=== PATIENT | female | born 1950 | race Caucasian/White ===

== ENCOUNTER 2017-12-26 14:05 | Outpatient (RCR) | payer MEDICARE, OTHER ==
[~2017-12-26 14:05] MED LIST: ABILIFY5 MG PO; ADVAIR 250-501 EACH INH; ADVAIR 500-501 EACH; ALBUTEROL0.63 MG/3 INH; ALPRAZOLAM0.5 MG PO; ALPRAZOLAM1 MG PO; BENICAR40 MG PO; BUPROPION HCL100 MG PO; CARTIA XT180 MG PO; CLINDAMYCIN HC300 MG PO; CRESTOR10 MG PO; DILTIAZEM ER180 MG PO; DONEPEZIL HCL5 MG PO; HYDRALAZINE HCL25 MG PO; HYDROCODON-ACE1 EAC9 PO; HYDROCODONE PO; HYDROMET SYRUP480 ML; HYZAAR 50-12.51 EACH PO; LORTAB 10-5001 EACH PO; LOSARTAN POTASS50 MG PO; LOSARTAN-HCTZ1 EACH PO; LYRICA PO; LYRICA50 MG PO; MEDROL4 MG PO; OMEPRAZOLE20 M1 PO; PROAIR HFA INH8.5 GM INH; RANITIDINE HCL150 MG PO; SERTRALINE HCL50 MG PO; SPIRIVA HANDIH18 MCG; SPIRIVA18 MCG INH; SYMBICORT 16010.2 GM INH; TRAZODONE HCL100 MG PO; TYLENOL # 31 EA PO; VITAMIN B12 IM; Z.0.BENICAR20 MG PO; Z.0.CARDIZEM30 MG PO; Z.0.CYMBALTA20 MG; Z.0.CYMBALTA60 MG PO; Z.0.NEURONTIN300 MG PO; Z.0.NORCO 5-325 TA1 PO; Z.0.PLAVIX75 MG PO; Z.0.PREDNISONE10 MG; Z.0.XANAX0.5 MG PO; Z.0.XOPENEX1.25 MG/3; [UNRECOGNIZED DRUG - OTHER] PO; advair
== END 2018-01-06 ==
LOC: RESP 14:05
PROVIDERS: ATTEND Internal Medicine Critical Care Medicine
DX: J44.9 Chronic obstructive pulmonary disease, unspecified (principal)
CPT/HCPCS: G0238 ×3; G0424 ×3

== ENCOUNTER 2018-01-09 14:07 | Outpatient (RCR) | payer MEDICARE, OTHER ==
[2018-01-31] MEDS ORDERED: PREDNISONE10 MG PO (17:15)
[2018-01-31] MEDS ORDERED: TEMAZEPAM15 MG PO (17:15)
[2018-01-31] MEDS ORDERED: METOPROLOL TART25 MG PO (17:15)
[2018-01-31] MEDS ORDERED: LEXAPRO10 MG PO (17:15)
[2018-01-31] MEDS ORDERED: CLONIDINE HCL0.1 MG PO (17:15)
[2018-01-31] MEDS ORDERED: LUNESTA1 MG PO (17:15)
== END 2018-02-05 ==
LOC: RESP 14:07
PROVIDERS: ATTEND Internal Medicine Critical Care Medicine
DX: J44.9 Chronic obstructive pulmonary disease, unspecified (principal)
CPT/HCPCS: G0238 ×2; G0424 ×2

== ENCOUNTER 2018-01-31 15:34 | Inpatient (IN) | payer MEDICARE, OTHER ==
[~2018-01-31] VITALS: Ht 149.9 cm; Wt 92.2 kg
--- OUTSIDE RECORDS SUMMARY | 2018-01-31 15:37 | XMS REPORT | Continuity of Care Document ---
Author Author [facility] Organization [facility] Address [address] [place] [address] Phone Unavailable Care Team Providers Care Balloon Dipper Name Role Phone VLAD BLUE MD PCP Insurance Providers Guarantor Anya Reyna Address [address] [place] [address] Email [email or web address] Payer Medicare A & B Policy Number [id number] Subscriber's Name Benson Reynabetsy Cassandra Relationship 18 Self / Same As Patient Group Name RETIRED Effective Date 16 Payer [employer] Medicare Supplement Plan Policy Number [id number] Subscriber's Name Benson Reynabetsy Cassandra Relationship 18 Self / Same As Patient Group Number PLAN [id number] Group Name RETIRED Effective Date 16 Advance Directives Directive Response Recorded Date/Time Does the patient have an advance directive? Yes 06/15/16 10:20am If yes, is advance directive on file with [facility]? No 01/24/13 6:01pm If not on file with [facility] will patient provide a copy? Yes 06/15/16 10:20am Do you have a Directive to Physician? Yes 12/26/17 2:04pm Do you have a Medical Power of Respiratory Therapy Technician? Yes 12/26/17 2:04pm Do you have an out of hospital Do Not Resuscitate Order? No 12/26/17 2:04pm Do you have any special needs we should be aware of? No 12/26/17 2:04pm Do you have a support person here with you today? No 12/26/17 2:04pm Did patient receive Notice of Privacy Practices? No 12/26/17 2:04pm Did patient receive patient rights and responsibilities? No 12/26/17 2:04pm Problems No problem information available. Medications Current Home Medications Medication Dose Units Route Directions Days Qty Instructions Start Date Acetaminophen/Codeine Phosphate (Tylenol # 3*) 1 Ea Tab 1 Tab Oral Twice A Day Albuterol Sulfate (Proair Hfa Inhaler*) 8.5 Gm Inh 2 Spr Inhalation Four Times Daily as needed for Shortness Of Breath Alprazolam 1 Mg Tablet 1 Mg Oral 2-3 Times Daily Bupropion Hcl 100 Mg Tablet 150 Mg Oral Daily 30 Tab Diltiazem Hcl (Diltiazem Er) 180 Mg Cap.er.deg 180 Mg Oral Bedtime Donepezil Hcl 5 Mg Tablet 5 Mg Oral Daily Fluticasone/Salmeterol (Advair 250-50 Diskus) 1 Each Disk.w.dev 1 Dose Inhalation Twice A Day Losartan Potassium 50 Mg Tablet 50 Mg Oral Daily Omeprazole 20 Mg Tablet.dr 20 Mg Oral Daily Ranitidine Hcl 150 Mg Tablet 150 Mg Oral Bedtime Sertraline Hcl 50 Mg Tablet 50 Mg Oral Daily Trazodone Hcl 100 Mg Tablet 100 Mg Oral Bedtime Past Home Medications Medication Directions Ordered Status Advair , Twice A Day Discontinued Albuterol Sulfate 0.63 Mg/3 Ml Vial.neb, 3 Ml Inhalation Twice A Day Discontinued Alprazolam 0.5 Mg Tablet, 0.5 Mg Oral 2-3 Times Daily Discontinued Alprazolam (Xanax) 0.5 Mg Tablet, 0.5 Mg Oral Four Times Daily as needed Discontinued Aripiprazole (Abilify) 5 Mg Tablet, 5 Mg Oral Daily Discontinued Budesonide/Formoterol Fumarate (Symbicort 160-4.5 Mcg Inhaler) 10.2 Gm Hfa.aer.ad, Inhalation Twice A Day Discontinued Clindamycin Hcl 300 Mg Capsule, 300 Mg Oral Twice A Day Discontinued Clopidogrel Bisulfate (Plavix) 75 Mg Tablet, 75 Mg Oral Daily Discontinued Diltiazem Hcl (Cartia Xt) 180 Mg Cap.er.24h, 180 Mg Oral Bedtime Discontinued Diltiazem Hcl (Cardizem) 30 Mg Tablet, 30 Mg Oral Daily Discontinued Duloxetine Hcl (Cymbalta) 60 Mg Capsule.dr, 60 Mg Oral Twice A Day Discontinued Duloxetine Hcl (Cymbalta) 20 Mg Capsule.dr, Discontinued Fluticasone/Salmeterol (Advair 500-50 Diskus) 1 Each Disk.w.dev, Twice A Day Discontinued Gabapentin (Neurontin) 300 Mg Capsule, 100 Mg Oral Three Times A Day Discontinued Guaifenesin (Mucinex) 600 Mg Tablet.sa, 600 Mg Oral Twice A Day Discontinued Hydralazine Hcl 25 Mg Tab, 25 Mg Oral Twice A Day Discontinued Hydrocodone Bit/Acetaminophen (Hydrocodon-Acetaminophn 10-325) 1 Each Tablet, 10-325 Mg Oral Every 4-6 Hours as needed Discontinued Hydrocodone Bit/Acetaminophen (Kegley 5-325 Tablet) 1 Each Tablet, 1 Tab Oral Every 4-6 Hours as needed Discontinued Hydrocodone Bit/Acetaminophen (Lortab 10-500 Tablet) 1 Each Tablet, 1 - 2 Oral Every 6 Hours Discontinued Hydrocodone Bit/Acetaminophen (Lortab 10-500 Tablet) 1 Each Tablet, Oral Every 6 Hours Discontinued Hydrocodone Bit/Homatropine (Hydromet Syrup) 480 Ml Syrup, Discontinued Levalbuterol Hcl (Xopenex) 1.25 Mg/3 Ml Vial.neb, Discontinued Losartan/Hydrochlorothiazide (Losartan-Hctz 50-12.5 Mg Tab) 1 Each Tablet, 1 Tab Oral Daily Discontinued Losartan/Hydrochlorothiazide (Hyzaar 50-12.5 Tablet) 1 Each Tablet, 1 Tab Oral Daily Discontinued Lyrica , 75 Mg Oral Three Times A Day Discontinued Methylprednisolone (Medrol) 4 Mg Tablet, 4 Mg Oral Daily Discontinued Olmesartan Medoxomil (Benicar) 40 Mg Tablet, 40 Mg Oral Daily Discontinued Olmesartan Medoxomil (Benicar) 20 Mg Tablet, 40 Mg Oral Daily Discontinued Prednisone 10 Mg Tablet, Discontinued Pregabalin (Lyrica) 50 Mg Cap, 50 Mg Oral Twice A Day Discontinued Rosuvastatin Calcium (Crestor) 10 Mg Tab, 20 Mg Oral Daily Discontinued Rosuvastatin Calcium (Crestor) 10 Mg Tab, 10 Mg Oral Daily Discontinued Tiotropium (Spiriva Handihaler) 18 Mcg Inhpwd, Discontinued Tiotropium [place] (Spiriva) 18 Mcg Cap.w.dev, 18 Mcg Inhalation Daily Discontinued Vitamin B12 , Intramusc Weekly Discontinued Vitamin B12 , 2 Ml Intramusc Use As Directed Discontinued Social History Social History Problem Response Recorded Date/Time Onset Date Status Hx Psychiatric Problems Yes 04/16/2013 5:44pm Not Applicable Not Applicable Hx Eating Disorder No 01/24/2013 6:01pm Not Applicable Not Applicable Hx Substance Use Disorder No 01/24/2013 6:01pm Not Applicable Not Applicable Hx Depression Yes 04/16/2013 5:44pm Not Applicable Not Applicable Hx Alcohol Use No 01/24/2013 6:01pm Not Applicable Not Applicable Hx Substance Use Treatment No 01/24/2013 6:01pm Not Applicable Not Applicable Hx Physical Abuse No 01/24/2013 6:01pm Not Applicable Not Applicable Hospital Discharge Instructions No hospital discharge instruction information available. Plan of Care Prescriptions See Medication Section Functional Status No functional status information available. Allergies, Adverse Reactions, Alerts Allergen Type Severity Reaction Status Last Updated ipratropium bromide Allergy Unknown Active 11/21/16 Penicillin Allergy Mild Active 09/16/08 Iodine Allergy Mild Active 09/16/08 Gabapentin Allergy Severe Active 04/17/13 Immunizations No immunization information available. Vital Signs No vital sign information available. Results No relevant diagnostic test, laboratory data and/or discharge summary information available. Procedures Procedure Status Date Provider(s) X-ray of chest, two views Active 04/12/17 VLAD BLUE MD Computed tomography of chest without contrast Active 05/19/17 PERLA PARKER MD Encounters Encounter Location Arrival/Admit Date Discharge/Depart Date Attending Provider Discharged [facility] 12/26/17 2:05pm 01/06/18 11:59pm PERLA PARKER MD Registered Clinic [facility] 05/19/17 5:52pm PERLA PARKER MD Registered Clinic [facility] 04/12/17 3:02pm VLAD BLUE MD
--- NOTE | 2018-01-31 16:39 | Diagnostic Imaging Report ---
PROCEDURE: Frontal and lateral views of the chest. COMPARISON: Chest 2 views 04/12/2017. INDICATIONS: COPD. MID UPPER BACK PAIN FINDINGS: Lines/tubes: None. Lungs: No focal consolidation. No parenchymal mass. Left lung base atelectasis. Pleura: There is no pleural effusion or pneumothorax. Heart and mediastinum: The heart and the mediastinum are normal. Atherosclerotic calcifications. Bones: No acute bony abnormality. Anterior cervical spine fusion hardware. Degenerative changes of the thoracic spine. IMPRESSION: No acute radiographic abnormality. Dictated by: Agusto Mayberry M.D. on 01/31/2018 at 16:40 Electronically approved by: Agusto Mayberry M.D. on 01/31/2018 at 16:40
[2018-01-31 17:03] LABS: BASOPHILS % 0.3 % (0.0-1.0); EOSINOPHILS # (AUTO) 0.2 (0.0-0.4); EOSINOPHILS % 1.4 % (0.0-6.0); HEMATOCRIT 34.4 % (34.2-44.1); HEMOGLOBIN 11.1 g/dL (12.0-16.0); LYMPHOCYTES # (AUTO) 3.5 (1.0-3.2); LYMPHOCYTES % 24.6 % (18.0-39.1); MEAN CORPUSCULAR HEMOGLOBIN 27.3 pg (28-32); MEAN CORPUSCULAR HGB CONC 32.3 g/dL (31-35); MEAN CORPUSCULAR VOLUME 84.5 fL (81-99); MONOCYTES % 6.9 % (4.4-11.3); NEUTROPHILS # (AUTO) 9.3 (2.1-6.9); NEUTROPHILS % 66.3 % (38.7-80.0); PLATELET COUNT 287 x10e3/uL (140-360); RED BLOOD COUNT 4.07 x10e6/uL (3.6-5.1); RED CELL DISTRIBUTION WIDTH 13.2 % (11.7-14.4)
[2018-01-31 17:12] LABS: INR 1.02; PROTHROMBIN TIME 12.6 seconds (11.9-14.5)
[2018-01-31 17:13] LABS: PARTIAL THROMBOPLASTIN TIME 34.8 seconds (23.8-35.5)
[2018-01-31] MEDS ORDERED: CLONIDINE HCL0.1 MG PO (17:15)
[2018-01-31] MEDS ORDERED: TEMAZEPAM15 MG PO (17:15)
[2018-01-31] MEDS ORDERED: METOPROLOL TART25 MG PO (17:15)
[2018-01-31] MEDS ORDERED: PREDNISONE10 MG PO (17:15)
[2018-01-31] MEDS ORDERED: LUNESTA1 MG PO (17:15)
[2018-01-31] MEDS ORDERED: LEXAPRO10 MG PO (17:15)
[2018-01-31 17:22] LABS: ALANINE AMINOTRANSFERASE 18 IU/L (0-55); ALBUMIN 3.4 g/dL (3.5-5.0); ALBUMIN/GLOBULIN RATIO 0.9 (0.8-2.0); ALKALINE PHOSPHATASE 102 IU/L (40-150); BLOOD UREA NITROGEN 18 mg/dL (7-26); BUN/CREATININE RATIO 18 (6-25); CALCIUM 9.3 mg/dL (8.4-10.2); CARBON DIOXIDE 31 mmol/L (22-29); CHLORIDE 100 mmol/L (98-107); CREATINE KINASE 94 IU/L (29-168); CREATININE, SERUM 0.98 mg/dL (0.57-1.11); EST GLOMERULAR FILTRATION RATE 57 ML/MIN (60-); GLUCOSE 122 mg/dL (74-118); SODIUM 142 mmol/L (136-145)
[2018-01-31] MEDS ORDERED: MORPHINE SULFATE 2 MG/ML SYR IV STA (17:26)
--- NOTE | 2018-01-31 17:29 | Diagnostic Imaging Report ---
Examination: CT Cervical Spine without Contrast History: Weakness, upper back pain for 2 days, rule out fracture injury. Comparison studies: CT 01/21/2012. Technique: Axial images were obtained through the cervical region. Coronal and sagittal images reconstructed from the axial data. Intravenous contrast: None Findings: Atlantoaxial articulation: Intact Alignment: Progressive minimal 2 mm degenerative anterolisthesis of C3 on C4. Stable minimal degenerative changes of C4-C5. Cervicomedullary junction: No abnormalities. Patent foramen magnum. Soft tissues: No gross abnormalities. Vertebrae: No fractures, neoplasm or infection. Stable incomplete fusion of the anterior arch of C2. Postsurgical changes: Post surgical changes of C5-C7 ACDF and interbody fusion are stable without evidence of hardware complication. Degenerative changes: C2-C3: Normal disc. Moderate left facet arthrosis and uncovertebral arthrosis result in moderate left foraminal stenosis. Patent right foramen. No spinal canal stenosis . C3-4: Moderately degenerated disc and 2 mm degenerative grade 1 anterolisthesis. Moderate right facet arthrosis and uncovertebral arthrosis contribute to severe right foraminal stenosis and moderate left foraminal stenosis. No spinal canal stenosis. C4-5: Severely degenerated disc with 2 mm degenerative retrolisthesis of C4 on C5. Bilateral uncovertebral arthrosis and mild right facet arthrosis contribute to moderate to severe right foraminal stenosis and moderate left foraminal stenosis. No spinal canal stenosis. C5-6: Postsurgical changes of ACDF with solid interbody fusion. Bilateral uncovertebral arthrosis and facet arthrosis contribute to moderate bilateral foraminal stenosis. No spinal canal stenosis. C6-7: Posteriorly changes of ACDF with solid interbody fusion. Uncovertebral post and facet arthrosis contributes to severe bilateral foraminal stenosis. No significant spinal canal stenosis. C7-T1: Severely degenerated disc. No spinal canal stenosis. Mild right foraminal stenosis due to facet arthrosis. Patent left foramen. IMPRESSION: 1. No acute fracture or sensation within the cervical spine. 2. Stable post surgical changes of C5-C7 ACDF without hardware complication. 3. Minimal progression of 2 mm grade 1 degenerative anterolisthesis of C3 on C4. 4. Stable 2 mm degenerative retrolisthesis at C4-C5. 5. Moderate to severe degenerative foraminal stenosis at C3-C4, C4-C5 and C6-C7. 6. No significant spinal canal stenosis. Preliminary report was provided by neuroradiology fellow, Dr.Thach Asia MD on 01/31/2018 5:28 PM. The images and preliminary report were reviewed and signed by Dr. Monalisa Alvarez, neuroradiology faculty, on 01/31/2018 at 1915 hours. Signed by: Dr. Monalisa Alvarez M.D. on 01/31/2018 7:20 PM
--- NOTE | 2018-01-31 17:37 | Diagnostic Imaging Report ---
History: Fall, weakness, upper to mid back pain for 2 days. Comparison studies: Concurrent cervical spine CT. Technique: Axial were obtained without IV contrast through the thoracic region. Coronal and sagittal images reconstructed from the axial data. Intravenous contrast: None Findings: Alignment: Normal kyphosis. No scoliosis. Soft tissues: No abnormalities.. Paraspinal muscles: Unremarkable Spinal cord: Can not be evaluated. Vertebrae: No fractures, infection or neoplasm. Hemangiomata of the T9 and T11 vertebrae. Degenerative changes: Severe disc degeneration with disc vacuum phenomenon from T6 to T12. Mild chronic degenerative vertebral body height loss from T6 to T11. Schmorl's node and degenerative endplate sclerosis at C6-C7. Endplate sclerosis at T10-T11. Schmorl's node at T 11-12. No spinal canal or foraminal stenosis. Incidental: Mild coronary arterial calcification. Calcified right hilar lymph node. Splenic calcified granulomas. Postsurgical changes with surgical sutures of the GE junction. IMPRESSION: 1. No acute fracture or subluxation within the thoracic spine. 2. Severe disc degeneration and endplate degenerative changes from T6 to T12. Preliminary report was provided by neuroradiology fellow, Dr.Thach Asia MD on 01/31/2018 5:36 PM. The images and preliminary report were reviewed and signed by Dr. Monalisa Alvarez, neuroradiology faculty, on 01/31/2018 at 1931 hours. Signed by: Dr. Monalisa Alvarez M.D. on 01/31/2018 7:34 PM
[2018-01-31] MEDS: SODIUM CHLORIDE 0.9% 1000ML 1,000 ML IV SCH (17:41)
--- OUTSIDE RECORDS SUMMARY | 2018-01-31 19:29 | XMS REPORT ---
Author Author [facility] Address Unknown Phone Unavailable Care Team Providers Care Rail Car Driver Name Role Phone STEPHENIE PITT Unavailable Unavailable Problems This patient has no known problems. Allergies, Adverse Reactions, Alerts This patient has no known allergies or adverse reactions. Medications This patient has no known medications. Results Test Description Test Time Test Comments Text Results Atomic Results Result Comments CHEST 2 VIEWS [place] [address] Patient Name: RENNY PANG MR #: [id number] : 1950 Age/Sex: 67/F Req #: [id number] Adm Physician: Ordered by: NABEEL GARSIA STAIR BUILDER Report #: [id number] Location: ER Room/Bed: Procedure: [id number] DX/CHEST 2 VIEWS Exam Date: 01/31/18 Exam Time: 1553 REPORT STATUS: Signed PROCEDURE: Frontal and lateral views of the chest. COMPARISON: Chest 2 views 04/12/2017. INDICATIONS: COPD. MID UPPER BACK PAIN FINDINGS: Lines/tubes: None. Lungs: No focal consolidation. No parenchymal mass. Left lung base atelectasis. Pleura: There is no pleural effusion or pneumothorax. Heart and mediastinum: The heart and the mediastinum are normal. Atherosclerotic calcifications. Bones: No acute bony abnormality. Anterior cervical spine fusion hardware. Degenerative changes of the thoracic spine. IMPRESSION: No acute radiographic abnormality. Dictated by: Joel Oconnor M.D. on 01/31/2018 at 16:40 Electronically approved by: Joel Oconnor M.D. on 01/31/2018 at 16:40 Dictated By: JOEL OCONNOR MD 1640 Transcribed By: LEW on 01/31/18 1640 COPY TO: NABEEL GARSIA STAIR BUILDER CT CERVICAL SPINE WO [place] [address] Patient Name: RENNY PANG MR #: [id number] : 1950 Age/Sex: 67/F Req #: [id number] Adm Physician: Ordered by: NABEEL GARSIA STAIR BUILDER Report #: [id number] Location: ER Room/Bed: Procedure: [id number] CT/CT CERVICAL SPINE WO Exam Date: 01/31/18 Exam Time: 1553 REPORT STATUS: Signed Examination: CT Cervical Spine without Contrast History: Weakness, upper back pain for 2 days , rule out fracture injury. Comparison studies: CT 01/21/2012. Technique: Axial images were obtained through the cervical region. Coronal and sagittal images reconstructed from the axial data. Intravenous contrast: None Findings: Atlantoaxial articulation: Intact Alignment: Progressive minimal 2 mm degenerative anterolisthesis of C3 on C4. Stable minimal degenerative changes of C4-C5. Cervicomedullary junction: No abnormalities. Patent foramen magnum. Soft tissues: No gross abnormalities. Vertebrae : No fractures, neoplasm or infection. Stable incomplete fusion of the anterior arch of C2. Postsurgical changes: Post surgical changes of C5- C7 ACDF and interbody fusion are stable without evidence of hardware complication. Degenerative changes: C2-C3: Normal disc. Moderate left facet arthrosis and uncovertebral arthrosis result in moderate left foraminal stenosis. Patent right foramen. No spinal canal stenosis . C3-4 : Moderately degenerated disc and 2 mm degenerative grade 1 anterolisthesis. Moderate right facet arthrosis and uncovertebral arthrosis contribute to severe right foraminal stenosis and moderate left foraminal stenosis. No spinal canal stenosis. C4-5: Severely degenerated disc with 2 mm degenerative retrolisthesis of C4 on C5. Bilateral uncovertebral arthrosis and mild right facet arthrosis contribute to moderate to severe right foraminal stenosis and moderate left foraminal stenosis. No spinal canal stenosis. C5-6: Postsurgical changes of ACDF with solid interbody fusion. Bilateral uncovertebral arthrosis and facet arthrosis contribute to moderate bilateral foraminal stenosis. No spinal canal stenosis. C6-7: Posteriorly changes of ACDF with solid interbody fusion. Uncovertebral post and facet arthrosis contributes to severe bilateral foraminal stenosis. No significant spinal canal stenosis. C7-T1: Severely degenerated disc. No spinal canal stenosis. Mild right foraminal stenosis due to facet arthrosis. Patent left foramen. IMPRESSION: 1. No acute fracture or sensation within the cervical spine. 2. Stable post surgical changes of C5-C7 ACDF without hardware complication. 3. Minimal progression of 2 mm grade 1 degenerative anterolisthesis of C3 on C4. 4. Stable 2 mm degenerative retrolisthesis at C4-C5. 5. Moderate to severe degenerative foraminal stenosis at C3-C4, C4-C5 and C6-C7. 6. No significant spinal canal stenosis. Preliminary report was provided by neuroradiology fellow, Dr.Thach Asia MD on 01/31/2018 5:28 PM. The images and preliminary report were reviewed and signed by Dr. Monalisa Alvarez, neuroradiology faculty, on 01/31/2018 at 1915 hours. Signed by: Dr. Monalisa Alvarez M.D. on 01/31/2018 7:20 PM Dictated By: MONALISA VUONG MD 19 Transcribed By: ROSALBA on 01/31/181919 COPY TO: NABEEL GARSIA NP
[2018-01-31 21:45] VITALS: BP 136/74
[2018-01-31 23:55] LABS: BILIRUBIN,URINE NEGATIVE (NEGATIVE); CLARITY,URINE CLEAR (CLEAR); COLOR,URINE YELLOW (YELLOW); KETONES,URINE NEGATIVE (NEGATIVE); LEUKOCYTE ESTERASE ,URINE NEGATIVE (NEGATIVE); NITRITE,URINE NEGATIVE (NEGATIVE); PROTEIN,URINE DIPSTICK NEGATIVE (NEGATIVE); URINE UROBILINOGEN 0.2 mg/dL (0.2 - 1)
[2018-02-01] VITALS (8 sets, daily range): BP systolic 106–136; BP diastolic 51–74
[2018-02-01 00:06] LABS: BACTERIA,URINE RARE /HPF; EPITHELIAL CELLS,URINE RARE /LPF; RBC,URINE 0-5 /HPF (0-5); WBC,URINE (MAN) 0-5 /HPF (0-5)
[2018-02-01] MEDS ORDERED: MORPHINE SULFATE 2 MG/ML SYR ONE ×3 (00:36→14:10)
[2018-02-01] MEDS: MORPHINE SULFATE 2 MG/ML SYR IV PRN ×5 (00:37→19:50)
[2018-02-01] MEDS ORDERED: PREDNISONE 10 MG TAB PO SCH (01:45)
[2018-02-01] MEDS ORDERED: ALBUTEROL SULFATE HFA 8GM INHALATION AEROSOL INH PRN ×2 (01:45→10:00)
[2018-02-01] MEDS ORDERED: ZOLPIDEM TARTRATE 10 MG TAB PO PRN (01:45)
[2018-02-01] MEDS: SODIUM CHLORIDE 0.9% 1000ML 1,000 ML IV SCH (04:59)
[2018-02-01] MEDS ORDERED: PREDNISONE 10 MG TAB PO PRN ×2 (06:15→06:30)
[2018-02-01] MEDS ORDERED: SALMETEROL/FLUTICASONE 250/50 INH SCH (07:00)
[2018-02-01] MEDS ORDERED: HYDROCODONE/APAP 10MG-325MG TAB PO PRN (08:00)
--- NOTE | 2018-02-01 08:48 | History and Physical ---
CHIEF COMPLAINT: Dyspnea, back pain and diarrhea. HISTORY OF PRESENT ILLNESS: The patient is a 67-year-old woman with severe COPD. She uses oxygen at home. She uses nebulizers, Spiriva and rescue inhalers. She also requires intermittent prednisone. She was previously evaluated for a lung transplant but was not placed on the list. She now complains of worsening pain in her upper back. It is worse with movement. She notes increased dyspnea. She becomes short of breath just walking to the bathroom. She also complains of profuse diarrhea and lightheadedness. She has some small amounts of hematochezia. She complains of some lower abdominal cramping, but no vomiting. She does not report any fevers. PAST MEDICAL HISTORY 1. COPD. 2. Diverticulitis. 3. Irritable bowel syndrome. PAST SURGICAL HISTORY 1. Status post cervical spine surgery 10 years ago. Apparently she had a laminectomy and fusion. 2. History of colonoscopy that showed diverticulitis. SOCIAL HISTORY: The patient quit smoking. She is not a drinker. FAMILY HISTORY: Noncontributory. REVIEW OF SYSTEMS: She does not complain of fever. There is no headache. She does have some lightheadedness. She has some upper thoracic and lower cervical back pain. She does not complain of anterior chest pain. She has dyspnea with exertion. She does not have any cough or congestion. She has no abdominal pain. She has no nausea or vomiting. She complains of profuse diarrhea. She has some lightheadedness. She does not complain of any focal abnormalities. PHYSICAL EXAMINATION VITALS: The patient is afebrile. The blood pressure is 106/51, and saturation is 97%. HEENT: No facial swelling or erythema. The nasal mucosa is normal. The oropharynx is normal. LYMPHATIC: No submandibular, cervical or supraclavicular adenopathy. CARDIAC: Regular rate and rhythm with a normal S1 and S2. There are no murmurs or rubs. LUNGS: Auscultation of the lungs reveals prolonged expiratory phase bilaterally. There is no wheezing. ABDOMEN: Soft and nontender. There is no rebound or guarding. EXTREMITIES: No leg edema or calf tenderness. There is no cyanosis or clubbing. SKIN: No rashes. NEUROLOGIC: No focal abnormalities. LABORATORY DATA: White blood cell count is 14, and the platelet count is 287. The STO-ij-yewuhtnrzl ratio is normal. The other electrolytes are within normal limits. RADIOGRAPHIC DATA: Chest x-ray shows no active disease. IMPRESSION 1. Chronic obstructive pulmonary disease with acute exacerbation. 2. Acute diarrhea with hematochezia. 3. Dehydration. 4. New onset of thoracic pain. 5. Hypertension. PLAN 1. Patient will have stool for C. difficile. She will be evaluated by GI. 2. Intravenous fluids. 3. IV Solu-Medrol and doxycycline for COPD exacerbation. 4. Aggressive bronchodilators. 5. CT scan of thoracic and cervical spine. 6. Further treatment depending on results. Job#: [id number]
[2018-02-01] MEDS: CLONIDINE HCL 0.1 MG TAB PO SCH ×3 (09:00→20:36)
[2018-02-01] MEDS: BUDESONIDE/FORMOTEROL 160/4.5MCG INHALER INH SCH ×2 (09:00→19:25)
[2018-02-01] MEDS ORDERED: MORPHINE SULFATE 5 MG/ML VIAL ONE (10:10)
[2018-02-01] MEDS: DONEPEZIL HCL 5 MG TAB PO SCH (10:26)
[2018-02-01] MEDS: ESCITALOPRAM OXALATE 10 MG TAB PO SCH (10:26)
[2018-02-01] MEDS: LIDOCAINE 5% PATCH TP SCH (10:26)
[2018-02-01] MEDS: PANTOPRAZOLE SOD 40 MG TABEC PO SCH (10:26)
[2018-02-01] MEDS: SERTRALINE HCL 50 MG TAB PO SCH (10:26)
[2018-02-01] MEDS: METHYLPREDNISOLONE SOD SUCC 40 MG/ML VIAL IV SCH ×2 (10:26→20:33)
[2018-02-01] MEDS: METOPROLOL TARTRATE 25 MG TAB PO SCH ×2 (10:26→15:28)
[2018-02-01] MEDS ORDERED: ALPRAZOLAM 1 MG TAB ONE (10:27)
[2018-02-01] MEDS: ALPRAZOLAM 1 MG TAB PO PRN ×2 (10:40→22:42)
[2018-02-01] MEDS ORDERED: ACETAMINOPHEN/CODEINE 300MG - 30MG TAB ONE (10:53)
[2018-02-01] MEDS: DOXYCYCLINE 100MG/NS 100ML 100 ML IV SCH ×2 (10:56→19:40)
[2018-02-01] MEDS: ACETAMINOPHEN/CODEINE 300MG - 30MG TAB PO SCH ×2 (10:57→16:50)
[2018-02-01] MEDS: ALBUTEROL SULF 0.083% NEB SOLN 3 ML NEB NEB SCH ×4 (11:00→23:30)
--- NOTE | 2018-02-01 11:37 | Consultation ---
DATE OF CONSULTATION: February 01, 2018 CARDIOLOGY CONSULTATION CONSULTING PHYSICIAN: Dr. Marshall REASON FOR CONSULTATION: Established patient. HPI: This is a 67-year-old female with history of hypertension, hyperlipidemia, COPD/emphysema advanced, von Willebrand disease being followed by hematology. The patient presents with several weeks of diarrhea off and on, reports as much as 7 bowel movements a day for the past 1-1/2 months. The patient reports she has been progressively weaker and weaker and felt that she needed to come to the ER for further evaluation. Also was complaining of shortness of breath on admission. Apparently was having trouble walking to the bathroom. However, patient has advanced COPD and emphysema on home oxygen. Also reports with these multiple bowel movements has been having some hematochezia. The patient reports she was being followed by GI and has a history of IBS. She had a colonoscopy in the past and states she had some diverticulitis and some polyps were removed. Currently, the patient denies any chest pain symptoms. PAST MEDICAL HISTORY 1. COPD/emphysema, advanced. 2. Hyperlipidemia. 3. Hypertension. 4. Had a left heart catheterization in 2011 showing 40% LAD and 40% diagonal. 5. GERD. 6. Anxiety. 7. Depression. 8. Dementia. PAST SURGICAL HISTORY 1. Hysterectomy in 1984. 2. Tonsillectomy. 3. Appendectomy. 4. Back surgery. 5. Cervical laminectomy. 6. Tubal ligation. 7. Left carpal tunnel surgery. FAMILY HISTORY: Mother at the age of 67 with complications of COPD. Father at age 55, apparently had history of CT. SOCIAL HISTORY: She is single. 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 Positive tobacco use. Social drinker. ALLERGIES: CODEINE, IODINE, MACROBID, PENICILLIN, GABAPENTIN. HOME MEDICATIONS 1. Crestor 10 mg daily. 2. Losartan 50 mg daily. 3. Cartia XL 180 mg daily. 4. Advair Diskus 100 per 500. 5. ProAir. 6. Ventolin. 7. Protonix 40 mg daily. 8. Lexapro. REVIEW OF SYSTEMS GENERAL: Denies any weight gain or weight changes. Positive for fatigue and weakness. No fever or chills. SKIN: No rashes or sores. HEENT: Occasional headaches. No nausea or vomiting. No vision changes. No vertigo or tinnitus. No rhinorrhea, stuffiness or epistaxis. No sore throat, hoarseness, bleeding gums. CHEST: No chest pain. Positive for dyspnea on exertion. Positive orthopnea. Positive PND. No lower extremity edema. RESPIRATORY: Positive for shortness of breath. Denies any wheezing. Positive for cough. GI: Good appetite. No nausea or vomiting. Positive for hematemesis. URINARY: No frequency, urgency, polyuria. VASCULAR: No lower extremity edema. MUSCULOSKELETAL: Positive for muscle weakness and generalized joint pain and back pain. NEURO: No tremors, blackouts, seizures. HEMATOLOGY: Denies any easy bruising or bleeding. ENDOCRINE: No heat or cold intolerance. No polyuria, polydipsia, or polyphagia. PHYSICAL EXAMINATION VITAL SIGNS: Height 59 inches, weight 191 pounds. Current vitals are 98.2, pulse 61, respiratory rate 20, blood pressure 116/56, pulse ox 97% on nasal cannula at 2 L. GENERAL: Appears in no acute distress currently. Appears her stated age. Reliable informant. SKIN: No rashes or bruises. HEENT: Normocephalic. The pupils are equal and reactive. Extraocular movements are intact. Trachea is midline. Oral mucosa is pink. NECK: No JVD. No carotid bruit. HEART: Regular rate and rhythm. PMI in 4th intercostal space. LUNGS: Decreased breath sounds throughout. Clear to auscultation. ABDOMEN: Soft. Nontender. No organomegaly. No tenderness. MUSCULOSKELETAL: Generalized weakness throughout. VASCULAR: There are +2 bilateral radial pulses, +1 bilateral PT and DP pulses. NEUROLOGIC: Cranial nerves II through XII seem intact. LABS: Sodium 142, potassium 4.9, chloride 31, BUN 18, creatinine 0.98. Troponin less than 0.001. White count 14, hemoglobin 11, hematocrit 34, platelets 98.7. IMAGING: Chest x-ray: No acute abnormalities. Cervical spine showing moderate to severe degenerative foraminal stenosis at C3 all the way to C7. Thoracic spine CT showing severe disk degeneration from T6 to T12. ASSESSMENT 1. History of irritable bowel syndrome. 2. Diarrhea. 3. Hematochezia. 4. Dehydration. 5. Chronic obstructive pulmonary disease/emphysema, advanced, on home oxygen. 6. Hypertension. 7. Hyperlipidemia. 8. Von Willebrand disease. PLAN 1. The patient presents to [facility] with several weeks of on and off diarrhea up to 7 bouts per day, noted to be dehydrated, also complaining of some shortness of breath. However, that is chronic with her advanced COPD/emphysema. Also, with chronic back pain. From a cardiac standpoint, therapy will be supportive. Continue her home cholesterol medicine and her antihypertensive therapy as blood pressure permits. 2. GI has been consulted to evaluate her GI symptoms. The patient does have a history of IBS. 3. From a cardiac standpoint, the patient is cleared to proceed with any GI evaluation as indicated and needed. Thank you very much for this consult. We will follow the patient and adjust cardiac therapy as course dictates. Dictated by: Aden Estrada NP KARI BALDERRAMA MD Job#: [id number]
[2018-02-01] MEDS ORDERED: TEMAZEPAM 15 MG CAP PO PRN (18:30)
[2018-02-01] MEDS: CRESTOR 10MG PO SCH (20:34)
[2018-02-01] MEDS ORDERED: TEMAZEPAM 15 MG CAP PO ONE (21:00)
[2018-02-01] MEDS ORDERED: BISACODYL 5 MG TAB EC PO ONE (23:30)
[2018-02-02] MEDS: MORPHINE SULFATE 2 MG/ML SYR IV PRN ×4 (00:30→21:37)
[2018-02-02] MEDS ORDERED: BISACODYL 5 MG TAB EC PO ONE ×3 (00:30→01:00)
[2018-02-02] MEDS ORDERED: CITRATE OF MAGNESIA 300ML BOTTLE PO ONE ×3 (00:30→09:30)
[2018-02-02 00:47] VITALS: BP 128/60
[2018-02-02] MEDS ORDERED: DICYCLOMINE HCL 20 MG TAB PO ONE (02:45)
[2018-02-02] MEDS: ALBUTEROL SULF 0.083% NEB SOLN 3 ML NEB NEB SCH ×3 (03:10→11:28)
[2018-02-02 06:18] VITALS: BP 118/60
[2018-02-02 06:56] LABS: BASOPHILS % 0.2 % (0.0-1.0); HEMATOCRIT 35.5 % (34.2-44.1); HEMOGLOBIN 11.1 g/dL (12.0-16.0); LYMPHOCYTES # (AUTO) 1.9 (1.0-3.2); LYMPHOCYTES % 10.1 % (18.0-39.1); MEAN CORPUSCULAR HEMOGLOBIN 27.3 pg (28-32); MEAN CORPUSCULAR HGB CONC 31.3 g/dL (31-35); MEAN CORPUSCULAR VOLUME 87.4 fL (81-99); MONOCYTES # (AUTO) 0.4 (0.2-0.8); NEUTROPHILS # (AUTO) 16.1 (2.1-6.9); NEUTROPHILS % 84.1 % (38.7-80.0); PLATELET COUNT 334 x10e3/uL (140-360); RED BLOOD COUNT 4.06 x10e6/uL (3.6-5.1); RED CELL DISTRIBUTION WIDTH 13.2 % (11.7-14.4)
[2018-02-02 07:19] LABS: CHOL/HDL RATIO 2.6 (3.0-3.6)
[2018-02-02 07:25] LABS: ALBUMIN 3.5 g/dL (3.5-5.0); ALBUMIN/GLOBULIN RATIO 0.9 (0.8-2.0); ANION GAP 17.5 mmol/L (8-16); CREATININE, SERUM 0.95 mg/dL (0.57-1.11); POTASSIUM 3.5 mmol/L (3.5-5.1)
[2018-02-02 08:00] VITALS: BP 116/56
[2018-02-02] MEDS: CLONIDINE HCL 0.1 MG TAB PO SCH ×3 (09:00→21:00)
[2018-02-02] MEDS: ACETAMINOPHEN/CODEINE 300MG - 30MG TAB PO SCH ×2 (09:00→17:00)
[2018-02-02] MEDS: DONEPEZIL HCL 5 MG TAB PO SCH (09:16)
[2018-02-02] MEDS: ESCITALOPRAM OXALATE 10 MG TAB PO SCH (09:16)
[2018-02-02] MEDS: METHYLPREDNISOLONE SOD SUCC 40 MG/ML VIAL IV SCH ×2 (09:16→21:36)
[2018-02-02] MEDS: DICYCLOMINE HCL 10 MG CAP PO SCH ×3 (09:16→21:36)
[2018-02-02] MEDS: LIDOCAINE 5% PATCH TP SCH (09:17)
[2018-02-02] MEDS: PANTOPRAZOLE SOD 40 MG TABEC PO SCH (09:17)
[2018-02-02] MEDS: SERTRALINE HCL 50 MG TAB PO SCH (09:17)
[2018-02-02] MEDS: METOPROLOL TARTRATE 25 MG TAB PO SCH ×2 (09:17→19:30)
[2018-02-02] MEDS: SODIUM CHLORIDE 0.9% 1000ML 1,000 ML IV SCH ×2 (10:42→22:03)
[2018-02-02] MEDS: BUDESONIDE/FORMOTEROL 160/4.5MCG INHALER INH SCH ×2 (11:28→19:20)
[2018-02-02 12:00] VITALS: BP 150/71
[2018-02-02] MEDS: DOXYCYCLINE 100MG/NS 100ML 100 ML IV SCH ×2 (12:00→21:35)
[2018-02-02] MEDS: LEVALBUTEROL HCL SOLN NEBU 1.25 MG/3 ML NEB INH SCH ×3 (15:41→23:30)
[2018-02-02 16:00] VITALS: BP 137/65
[2018-02-02 21:17] VITALS: BP 120/59
[2018-02-02] MEDS: CRESTOR 10MG PO SCH (21:36)
[2018-02-03] VITALS (8 sets, daily range): BP systolic 132–165; BP diastolic 56–79
[2018-02-03] MEDS ORDERED: CITRATE OF MAGNESIA 300ML BOTTLE PO ONE (00:15)
[2018-02-03] MEDS: CLONIDINE HCL 0.1 MG TAB PO SCH ×4 (00:29→21:00)
[2018-02-03] MEDS: ALPRAZOLAM 1 MG TAB PO PRN ×3 (00:50→17:20)
[2018-02-03] MEDS: LEVALBUTEROL HCL SOLN NEBU 1.25 MG/3 ML NEB INH SCH ×6 (03:12→22:46)
[2018-02-03] MEDS: BUDESONIDE/FORMOTEROL 160/4.5MCG INHALER INH SCH ×2 (07:20→18:55)
[2018-02-03] MEDS: DICYCLOMINE HCL 10 MG CAP PO SCH ×3 (09:00→21:00)
[2018-02-03] MEDS: METOPROLOL TARTRATE 25 MG TAB PO SCH ×2 (09:00→17:20)
[2018-02-03] MEDS: LIDOCAINE 5% PATCH TP SCH (09:00)
[2018-02-03] MEDS: ESCITALOPRAM OXALATE 10 MG TAB PO SCH (09:00)
[2018-02-03] MEDS: DONEPEZIL HCL 5 MG TAB PO SCH (09:00)
[2018-02-03] MEDS: METHYLPREDNISOLONE SOD SUCC 40 MG/ML VIAL IV SCH ×2 (09:00→21:00)
[2018-02-03] MEDS: ACETAMINOPHEN/CODEINE 300MG - 30MG TAB PO SCH ×2 (09:00→17:00)
[2018-02-03] MEDS: SERTRALINE HCL 50 MG TAB PO SCH (09:00)
[2018-02-03] MEDS: PANTOPRAZOLE SOD 40 MG TABEC PO SCH (09:00)
[2018-02-03] MEDS: DOXYCYCLINE 100MG/NS 100ML 100 ML IV SCH ×2 (10:00→21:12)
[2018-02-03] MEDS: MORPHINE SULFATE 2 MG/ML SYR IV PRN ×2 (10:58→21:00)
[2018-02-03] MEDS ORDERED: SODIUM CHLORIDE 0.9% 50ML 50 ML ONE (12:44)
[2018-02-03] MEDS ORDERED: SODIUM CHLORIDE 0.9% 250ML 250 ML ONE (12:44)
[2018-02-03] MEDS: SODIUM CHLORIDE 0.9% 1000ML 1,000 ML IV SCH ×2 (14:06→23:40)
[2018-02-03] MEDS ORDERED: MIDAZOLAM HCL 2 MG/2 ML VIAL ONE (14:46)
[2018-02-03] MEDS ORDERED: KETAMINE HCL INJ 50 MG/ML 10 ML VIAL ONE (14:46)
[2018-02-03] MEDS ORDERED: DEXAMETHASONE SOD PHOS INJ 4 MG/ML VIAL ONE (15:27)
[2018-02-03] MEDS ORDERED: PROPOFOL IV EMULSION 10 MG/ML 50 ML VIAL ONE (15:27)
[2018-02-03] MEDS ORDERED: LIDOCAINE HCL 2% LOCAL INJ 5 ML SDV VIAL INJ ONE (15:27)
[2018-02-03] MEDS ORDERED: ONDANSETRON HCL INJ 2 MG/ML VIAL ONE (15:27)
[2018-02-03] MEDS ORDERED: ETOMIDATE 2 MG/ML 10 ML INJ IV ONE (15:27)
[2018-02-03] MEDS ORDERED: NITROGLYCERIN 2% OINT 1 GM PKT ONE (15:56)
[2018-02-03] MEDS ORDERED: FUROSEMIDE INJ 10 MG/ML 4 ML VIAL ONE (16:00)
[2018-02-03 16:15] LABS: WBC,FECAL (FECAL LACTOFERRIN) NEGATIVE (NEGATIVE)
--- NOTE | 2018-02-03 17:14 | Diagnostic Imaging Report ---
EXAMINATION: Chest, CHEST SINGLE (PORTABLE) INDICATION: Chest pain COMPARISON: Chest 2 views 01/31/2018 FINDINGS: LINES: None. Heart: Normal cardiac silhouette. Vascular: The pulmonary vasculature is within normal limits. Atherosclerotic calcifications of the aortic arch. Mediastinum: No mediastinal, hilar, or axillary mass or lymphadenopathy. Lungs: No parenchymal mass. Bilateral diffuse airspace opacifications. Pleura: No pleural effusion. No pneumothorax. Bones: No acute osseous abnormality. Degenerative changes of the thoracic spine. Anterior cervical spine fusion hardware. Soft tissues: Normal. Impression: Bilateral diffuse airspace opacifications may represent edema or pneumonia. Signed by: Dr. Agusto Mayberry M.D. on 02/03/2018 5:11 PM
[2018-02-03] MEDS: CRESTOR 10MG PO SCH (21:00)
[2018-02-04] VITALS (8 sets, daily range): BP systolic 125–140; BP diastolic 60–86
[2018-02-04] MEDS: LEVALBUTEROL HCL SOLN NEBU 1.25 MG/3 ML NEB INH SCH ×5 (02:24→22:40)
[2018-02-04] MEDS: ALPRAZOLAM 1 MG TAB PO PRN ×3 (06:43→23:16)
[2018-02-04] MEDS: BUDESONIDE/FORMOTEROL 160/4.5MCG INHALER INH SCH ×2 (07:00→18:45)
[2018-02-04 07:12] LABS: BASOPHILS # (AUTO) 0.1 (0.0-0.1); BASOPHILS % 0.3 % (0.0-1.0); HEMATOCRIT 34.5 % (34.2-44.1); HEMOGLOBIN 10.4 g/dL (12.0-16.0); LYMPHOCYTES # (AUTO) 1.7 (1.0-3.2); LYMPHOCYTES % 7.2 % (18.0-39.1); MEAN CORPUSCULAR HEMOGLOBIN 27.4 pg (28-32); MEAN CORPUSCULAR HGB CONC 30.1 g/dL (31-35); MONOCYTES # (AUTO) 1.6 (0.2-0.8); MONOCYTES % 6.7 % (4.4-11.3); NEUTROPHILS # (AUTO) 19.2 (2.1-6.9); NEUTROPHILS % 81.3 % (38.7-80.0); PLATELET COUNT 299 x10e3/uL (140-360); RED BLOOD COUNT 3.79 x10e6/uL (3.6-5.1); RED CELL DISTRIBUTION WIDTH 14.3 % (11.7-14.4)
[2018-02-04 07:38] LABS: ALBUMIN 3.5 g/dL (3.5-5.0); ALBUMIN/GLOBULIN RATIO 0.9 (0.8-2.0); ANION GAP 20.2 mmol/L (8-16); CALCIUM 8.9 mg/dL (8.4-10.2); CREATININE, SERUM 1.12 mg/dL (0.57-1.11); POTASSIUM 4.2 mmol/L (3.5-5.1)
[2018-02-04] MEDS: DICYCLOMINE HCL 10 MG CAP PO SCH ×3 (08:06→20:44)
[2018-02-04] MEDS: METHYLPREDNISOLONE SOD SUCC 40 MG/ML VIAL IV SCH ×2 (08:06→20:44)
[2018-02-04] MEDS: DOXYCYCLINE 100MG/NS 100ML 100 ML IV SCH (08:06)
[2018-02-04] MEDS: DONEPEZIL HCL 5 MG TAB PO SCH (08:06)
[2018-02-04] MEDS: CLONIDINE HCL 0.1 MG TAB PO SCH ×3 (08:07→20:44)
[2018-02-04] MEDS: ESCITALOPRAM OXALATE 10 MG TAB PO SCH (08:07)
[2018-02-04] MEDS: LIDOCAINE 5% PATCH TP SCH (08:08)
[2018-02-04] MEDS: METOPROLOL TARTRATE 25 MG TAB PO SCH ×2 (08:08→15:58)
[2018-02-04] MEDS: PANTOPRAZOLE SOD 40 MG TABEC PO SCH (08:08)
[2018-02-04] MEDS: ACETAMINOPHEN/CODEINE 300MG - 30MG TAB PO SCH (08:08)
[2018-02-04] MEDS: SERTRALINE HCL 50 MG TAB PO SCH (08:08)
[2018-02-04] MEDS: AZITHROMYCIN 500MG/NS 250 ML 250 ML IV SCH (10:25)
[2018-02-04] MEDS ORDERED: FUROSEMIDE INJ 10 MG/ML 4 ML VIAL IV ONE (10:30)
[2018-02-04 10:39] LABS: C DIFFICILE TOXIN A&B AMP PROB NEGATIVE (NEGATIVE)
[2018-02-04 11:07] LABS: BAND NEUTROPHILS % (MANUAL) 1 %; LYMPHOCYTES % (MANUAL) 12 % (19-48); MONOCYTES % (MANUAL) 13 % (3.4-9.0); NEUTROPHILS % (MANUAL) 74 % (40-74); PLATELET ESTIMATE ADEQUATE; PLATELET MORPHOLOGY COMMENT NORMAL; RBC MORPHOLOGY COMMENT NORMAL
[2018-02-04] MEDS: PIPER-TAZ 3.375 GM 100 ML IV SCH ×2 (13:31→22:13)
[2018-02-04] MEDS: FLUTICASONE PROPIONATE NASAL SPRAY NS PRN (15:13)
[2018-02-04] MEDS ORDERED: FLUTICASONE PROPIONATE NASAL SPRAY NS SCH (17:00)
[2018-02-04] MEDS: ACETAMINOPHEN/CODEINE 300MG - 30MG TAB PO PRN (19:02)
[2018-02-04] MEDS: CRESTOR 10MG PO SCH (20:44)
[2018-02-05] VITALS (8 sets, daily range): BP systolic 128–150; BP diastolic 51–76
[2018-02-05] MEDS: LEVALBUTEROL HCL SOLN NEBU 1.25 MG/3 ML NEB INH SCH ×6 (01:40→23:02)
[2018-02-05] MEDS: ACETAMINOPHEN/CODEINE 300MG - 30MG TAB PO PRN ×2 (02:50→09:21)
[2018-02-05] MEDS: PIPER-TAZ 3.375 GM 100 ML IV SCH ×3 (06:16→22:00)
[2018-02-05 06:33] LABS: BASOPHILS % 0.2 % (0.0-1.0); HEMATOCRIT 30.1 % (34.2-44.1); HEMOGLOBIN 9.6 g/dL (12.0-16.0); LYMPHOCYTES # (AUTO) 1.4 (1.0-3.2); LYMPHOCYTES % 7.9 % (18.0-39.1); MEAN CORPUSCULAR HEMOGLOBIN 27.4 pg (28-32); MEAN CORPUSCULAR HGB CONC 31.9 g/dL (31-35); MONOCYTES # (AUTO) 1.1 (0.2-0.8); MONOCYTES % 6.7 % (4.4-11.3); NEUTROPHILS # (AUTO) 13.4 (2.1-6.9); NEUTROPHILS % 78.4 % (38.7-80.0); PLATELET COUNT 253 x10e3/uL (140-360); RED CELL DISTRIBUTION WIDTH 14.2 % (11.7-14.4)
[2018-02-05] MEDS: BUDESONIDE/FORMOTEROL 160/4.5MCG INHALER INH SCH ×2 (07:00→19:42)
--- NOTE | 2018-02-05 07:00 | Diagnostic Imaging Report ---
EXAMINATION: CHEST 2 VIEWS INDICATION: Bilateral pulmonary infiltrates COMPARISON: 02/03/2018 FINDINGS: TUBES and LINES: None. LUNGS: Lungs are not well inflated. Interval increased in confluent airspace opacities predominantly involving the upper lobes and right lower lobe with areas of alveolar and interstitial opacities. PLEURA: Small bilateral pleural effusions are noted in the posterior costophrenic sulci HEART AND MEDIASTINUM: Cardiac size is mildly enlarged. There are atherosclerotic calcifications within the aorta. BONES AND SOFT TISSUES: No acute osseous lesion. Anterior lower cervical spine fusion with plate and screws present. Soft tissues are unremarkable. UPPER ABDOMEN: No free air under the diaphragm. IMPRESSION: Findings are compatible with pulmonary edema/fluid overload. However, superimposed multifocal infection may be superimposed. Follow-up until resolution is recommended Signed by: Dr. Ottoniel Shepard M.D. on 02/05/2018 6:57 AM
[2018-02-05 07:12] LABS: ALANINE AMINOTRANSFERASE 97 IU/L (0-55); ALBUMIN/GLOBULIN RATIO 0.9 (0.8-2.0); ALKALINE PHOSPHATASE 89 IU/L (40-150); ANION GAP 13.1 mmol/L (8-16); BLOOD UREA NITROGEN 25 mg/dL (7-26); BUN/CREATININE RATIO 27 (6-25); CALCIUM 8.2 mg/dL (8.4-10.2); CARBON DIOXIDE 35 mmol/L (22-29); CHLORIDE 99 mmol/L (98-107); CREATININE, SERUM 0.91 mg/dL (0.57-1.11); EST GLOMERULAR FILTRATION RATE > 60 ML/MIN (60-); GLUCOSE 281 mg/dL (74-118); POTASSIUM 4.1 mmol/L (3.5-5.1); SODIUM 143 mmol/L (136-145)
[2018-02-05] MEDS ORDERED: LEVALBUTEROL HCL SOLN NEBU 0.63 MG/3 ML NEB ONE ×3 (07:33→15:52)
[2018-02-05] MEDS: ALPRAZOLAM 1 MG TAB PO PRN (09:02)
[2018-02-05] MEDS: LIDOCAINE 5% PATCH TP SCH (09:02)
[2018-02-05] MEDS: ESCITALOPRAM OXALATE 10 MG TAB PO SCH (09:03)
[2018-02-05] MEDS: DONEPEZIL HCL 5 MG TAB PO SCH (09:03)
[2018-02-05] MEDS: SERTRALINE HCL 50 MG TAB PO SCH (09:03)
[2018-02-05] MEDS: CLONIDINE HCL 0.1 MG TAB PO SCH ×3 (09:03→21:40)
[2018-02-05] MEDS: DICYCLOMINE HCL 10 MG CAP PO SCH ×3 (09:03→21:40)
[2018-02-05] MEDS: METHYLPREDNISOLONE SOD SUCC 40 MG/ML VIAL IV SCH ×2 (09:03→21:40)
[2018-02-05] MEDS: METOPROLOL TARTRATE 25 MG TAB PO SCH ×2 (09:03→16:22)
[2018-02-05] MEDS: PANTOPRAZOLE SOD 40 MG TABEC PO SCH (09:03)
[2018-02-05 10:22] LABS: ANISOCYTOSIS SLIGHT; BAND NEUTROPHILS % (MANUAL) 1 %; HYPOCHROMASIA SLIGHT; LYMPHOCYTES % (MANUAL) 13 % (19-48); MONOCYTES % (MANUAL) 5 % (3.4-9.0); NEUTROPHILS % (MANUAL) 79 % (40-74); PLATELET ESTIMATE ADEQUATE; PLATELET MORPHOLOGY COMMENT NORMAL; PROMYELOCYTES % (MANUAL) 1 % (0-0); RBC MORPHOLOGY COMMENT NORMAL
[2018-02-05] MEDS: AZITHROMYCIN 500MG/NS 250 ML 250 ML IV SCH (11:24)
[2018-02-05] MEDS ORDERED: FUROSEMIDE INJ 10 MG/ML 4 ML VIAL IV ONE (14:00)
[2018-02-05] MEDS: ALPRAZOLAM 0.5 MG TAB PO PRN ×2 (14:25→21:41)
[2018-02-05] MEDS: LOPERAMIDE HCL 2 MG CAP PO PRN (16:23)
[2018-02-05] MEDS: SIMVASTATIN 40 MG TAB PO SCH (21:38)
[2018-02-05] MEDS: HYDROCODONE/APAP 7.5MG-325MG 1 EA TAB PO PRN (21:40)
[2018-02-05] MEDS: FLUTICASONE PROPIONATE NASAL SPRAY NS PRN (22:20)
[2018-02-06] VITALS (8 sets, daily range): BP systolic 127–145; BP diastolic 64–95
[2018-02-06] MEDS: LEVALBUTEROL HCL SOLN NEBU 1.25 MG/3 ML NEB INH SCH ×4 (03:05→19:25)
[2018-02-06] MEDS ORDERED: DIPHENOXYLATE/ATROPINE TAB PO ONE (03:15)
[2018-02-06] MEDS: PIPER-TAZ 3.375 GM 100 ML IV SCH ×3 (05:00→22:03)
[2018-02-06] MEDS: HYDROCODONE/APAP 7.5MG-325MG 1 EA TAB PO PRN ×2 (05:34→14:49)
[2018-02-06 06:13] LABS: BASOPHILS % 0.2 % (0.0-1.0); EOSINOPHILS % 0.1 % (0.0-6.0); HEMATOCRIT 31.4 % (34.2-44.1); LYMPHOCYTES # (AUTO) 1.1 (1.0-3.2); LYMPHOCYTES % 7.4 % (18.0-39.1); MEAN CORPUSCULAR HEMOGLOBIN 27.5 pg (28-32); MEAN CORPUSCULAR HGB CONC 31.8 g/dL (31-35); MEAN CORPUSCULAR VOLUME 86.5 fL (81-99); MONOCYTES # (AUTO) 0.5 (0.2-0.8); MONOCYTES % 3.4 % (4.4-11.3); NEUTROPHILS # (AUTO) 12.1 (2.1-6.9); NEUTROPHILS % 84.3 % (38.7-80.0); PLATELET COUNT 261 x10e3/uL (140-360); RED BLOOD COUNT 3.63 x10e6/uL (3.6-5.1)
--- NOTE | 2018-02-06 06:53 | Diagnostic Imaging Report ---
EXAM: CHEST 2 VIEWS, PA and lateral INDICATION: Shortness of breath COMPARISON: PA and lateral view of the chest February 05, 2018 FINDINGS: LINES/TUBES: None LUNGS: Stable bilateral interstitial and alveolar airspace opacities. PLEURA: No effusions or pneumothorax. HEART AND MEDIASTINUM: Normal size and contour. BONES AND SOFT TISSUES: No acute findings. Lower cervical spine surgical hardware. IMPRESSION: No interval change. Findings could represent pulmonary edema and/or multifocal pneumonia. Signed by: Dr. Luisa Rosenbaum M.D. on 02/06/2018 6:50 AM
[2018-02-06] MEDS: BUDESONIDE/FORMOTEROL 160/4.5MCG INHALER INH SCH ×2 (06:55→19:25)
[2018-02-06 07:00] LABS: ALBUMIN 2.9 g/dL (3.5-5.0); ALBUMIN/GLOBULIN RATIO 0.8 (0.8-2.0); ANION GAP 13.4 mmol/L (8-16); CALCIUM 8.4 mg/dL (8.4-10.2); CREATININE, SERUM 1.07 mg/dL (0.57-1.11); POTASSIUM 4.4 mmol/L (3.5-5.1)
[2018-02-06] MEDS: ALPRAZOLAM 0.5 MG TAB PO PRN ×2 (07:55→17:30)
[2018-02-06 08:33] LABS: LYMPHOCYTES % (MANUAL) 9 % (19-48); METAMYELOCYTES % (MANUAL) 1 % (0-0); MONOCYTES % (MANUAL) 3 % (3.4-9.0); MYELOCYTES % (MANUAL) 2 % (0-0); NEUTROPHILS % (MANUAL) 85 % (40-74)
[2018-02-06 08:34] LABS: ANISOCYTOSIS SLIGHT; HYPOCHROMASIA SLIGHT; PLATELET ESTIMATE ADEQUATE; PLATELET MORPHOLOGY COMMENT NORMAL; RBC MORPHOLOGY COMMENT NORMAL
[2018-02-06] MEDS: CLONIDINE HCL 0.1 MG TAB PO SCH ×3 (09:00→21:44)
[2018-02-06] MEDS: METHYLPREDNISOLONE SOD SUCC 40 MG/ML VIAL IV SCH ×2 (09:00→21:43)
[2018-02-06] MEDS: DICYCLOMINE HCL 10 MG CAP PO SCH ×3 (09:00→21:43)
[2018-02-06] MEDS: DONEPEZIL HCL 5 MG TAB PO SCH (09:00)
[2018-02-06] MEDS: METOPROLOL TARTRATE 25 MG TAB PO SCH (09:35)
[2018-02-06] MEDS: PANTOPRAZOLE SOD 40 MG TABEC PO SCH (09:35)
[2018-02-06] MEDS: LIDOCAINE 5% PATCH TP SCH (09:35)
[2018-02-06] MEDS: ESCITALOPRAM OXALATE 10 MG TAB PO SCH (09:35)
[2018-02-06] MEDS: SERTRALINE HCL 50 MG TAB PO SCH (09:35)
[2018-02-06] MEDS: LOPERAMIDE HCL 2 MG CAP PO PRN ×2 (11:20→22:03)
[2018-02-06] MEDS: AZITHROMYCIN 500MG/NS 250 ML 250 ML IV SCH (11:24)
[2018-02-06] MEDS ORDERED: FUROSEMIDE INJ 10 MG/ML 4 ML VIAL IV NR (11:30)
[2018-02-06] MEDS ORDERED: DILTIAZEM HCL ER 90MG CAPSULE PO SCH (17:00)
[2018-02-06] MEDS: CEFEPIME HCL 1 GM VIAL IV SCH (17:00)
[2018-02-06] MEDS: SIMVASTATIN 40 MG TAB PO SCH (21:44)
[2018-02-07] MEDS: FLUTICASONE PROPIONATE NASAL SPRAY NS PRN (01:01)
[2018-02-07] MEDS: ALPRAZOLAM 0.5 MG TAB PO PRN ×3 (01:01→17:56)
[2018-02-07] MEDS: LEVALBUTEROL HCL SOLN NEBU 1.25 MG/3 ML NEB INH SCH ×3 (01:02→15:15)
[2018-02-07] MEDS ORDERED: SODIUM CHLORIDE 0.9% 50ML 50 ML ONE (03:40)
[2018-02-07] MEDS: CEFEPIME HCL 1 GM VIAL IV SCH ×2 (04:06→16:58)
[2018-02-07 04:07] VITALS: BP 136/80
[2018-02-07] MEDS: NYSTATIN SUSPENSION 5 ML UDC PO SCH ×3 (05:51→16:58)
[2018-02-07] MEDS: PIPER-TAZ 3.375 GM 100 ML IV SCH ×2 (06:00→14:21)
[2018-02-07 06:22] LABS: BASOPHILS % 0.2 % (0.0-1.0); HEMATOCRIT 30.2 % (34.2-44.1); HEMOGLOBIN 9.6 g/dL (12.0-16.0); LYMPHOCYTES # (AUTO) 1.2 (1.0-3.2); LYMPHOCYTES % 9.5 % (18.0-39.1); MEAN CORPUSCULAR HEMOGLOBIN 27.1 pg (28-32); MEAN CORPUSCULAR HGB CONC 31.8 g/dL (31-35); MEAN CORPUSCULAR VOLUME 85.3 fL (81-99); MONOCYTES # (AUTO) 0.6 (0.2-0.8); MONOCYTES % 4.6 % (4.4-11.3); NEUTROPHILS # (AUTO) 10.3 (2.1-6.9); NEUTROPHILS % 81.7 % (38.7-80.0); PLATELET COUNT 267 x10e3/uL (140-360); RED BLOOD COUNT 3.54 x10e6/uL (3.6-5.1); RED CELL DISTRIBUTION WIDTH 13.9 % (11.7-14.4)
[2018-02-07] MEDS: BUDESONIDE/FORMOTEROL 160/4.5MCG INHALER INH SCH (06:49)
[2018-02-07 06:50] LABS: ALBUMIN 2.8 g/dL (3.5-5.0); ALBUMIN/GLOBULIN RATIO 0.8 (0.8-2.0); ANION GAP 14.5 mmol/L (8-16); CALCIUM 8.4 mg/dL (8.4-10.2); CREATININE, SERUM 0.97 mg/dL (0.57-1.11); POTASSIUM 4.5 mmol/L (3.5-5.1)
[2018-02-07 07:51] VITALS: BP 164/81
[2018-02-07 07:55] VITALS: BP 164/81
[2018-02-07] MEDS ORDERED: AZITHROMYCIN 250MG/NS 100 ML 100 ML IV SCH (09:00)
[2018-02-07] MEDS ORDERED: DILTIAZEM HCL ER 90MG CAPSULE PO SCH (09:00)
[2018-02-07] MEDS: DICYCLOMINE HCL 10 MG CAP PO SCH ×2 (09:05→14:21)
[2018-02-07] MEDS: METHYLPREDNISOLONE SOD SUCC 40 MG/ML VIAL IV SCH (09:05)
[2018-02-07] MEDS: DONEPEZIL HCL 5 MG TAB PO SCH (09:05)
[2018-02-07] MEDS: PANTOPRAZOLE SOD 40 MG TABEC PO SCH (09:07)
[2018-02-07] MEDS: ESCITALOPRAM OXALATE 10 MG TAB PO SCH (09:07)
[2018-02-07] MEDS: CLONIDINE HCL 0.1 MG TAB PO SCH ×2 (09:07→14:22)
[2018-02-07] MEDS: SERTRALINE HCL 50 MG TAB PO SCH (09:07)
[2018-02-07] MEDS: LIDOCAINE 5% PATCH TP SCH (09:07)
[2018-02-07 09:32] LABS: LYMPHOCYTES % (MANUAL) 12 % (19-48); MONOCYTES % (MANUAL) 3 % (3.4-9.0); MYELOCYTES % (MANUAL) 1 % (0-0); NEUTROPHILS % (MANUAL) 83 % (40-74)
--- NOTE | 2018-02-07 09:32 | Diagnostic Imaging Report ---
PROCEDURE: Frontal and lateral views of the chest. COMPARISON: Chest 2 views 02/06/2018. INDICATIONS: PNEUMONIA FINDINGS: Lines/tubes: None. Lungs: Continued bilateral multifocal airspace opacifications. No parenchymal mass. Pleura: There is no pleural effusion or pneumothorax. Heart and mediastinum: The heart and the mediastinum are normal. Bones: No acute bony abnormality. Degenerative changes of the thoracic spine. Anterior cervical spine fusion hardware. IMPRESSION: Bilateral multifocal airspace opacifications consistent with pneumonia. Dictated by: Agusto Mayberry M.D. on 02/07/2018 at 9:33 Electronically approved by: Agusto Mayberry M.D. on 02/07/2018 at 9:33
[2018-02-07 09:33] LABS: ANISOCYTOSIS SLIGHT; HYPOCHROMASIA SLIGHT; PLATELET ESTIMATE ADEQUATE; PLATELET MORPHOLOGY COMMENT NORMAL; POLYCHROMASIA FEW; RBC MORPHOLOGY COMMENT NORMAL
[2018-02-07] MEDS: HYDROCODONE/APAP 7.5MG-325MG 1 EA TAB PO PRN ×2 (09:48→17:56)
[2018-02-07 12:00] VITALS: BP 139/77
[2018-02-07] MEDS: LOPERAMIDE HCL 2 MG CAP PO PRN (14:37)
[2018-02-07 17:35] VITALS: BP 143/84
== END 2018-02-07 19:23 | DRG 391 ==
LOC: ER 15:34 → OBSVTOIN 19:26 → ERHOLD 19:26 → EDBEDREQTM 19:29 → EDBEDREQ 19:29 → MED/SURG2 20:51 → IMCU 02-03 16:05
PROC: 0D5P8ZZ Destruction of Rectum, Via Natural or Artificial Opening Endoscopic (ICD-10-PCS; 2018-02-03)
PROC: 30233K1 Transfusion of Nonautologous Frozen Plasma into Peripheral Vein, Percutaneous Approach (ICD-10-PCS; 2018-02-03)
PROC: 0DBM8ZX Excision of Descending Colon, Via Natural or Artificial Opening Endoscopic, Diagnostic (ICD-10-PCS; principal; 2018-02-03 14:08)
PROC: 0DB88ZX Excision of Small Intestine, Via Natural or Artificial Opening Endoscopic, Diagnostic (ICD-10-PCS; 2018-02-03 14:08)
DX: K58.0 Irritable bowel syndrome with diarrhea (principal); J96.20 Acute and chronic respiratory failure, unspecified whether with hypoxia or hypercapnia; J44.1 Chronic obstructive pulmonary disease with (acute) exacerbation; D68.0 Von Willebrand disease; E78.5 Hyperlipidemia, unspecified; I25.10 Atherosclerotic heart disease of native coronary artery without angina pectoris; Z98.61 Coronary angioplasty status; F03.90 Unspecified dementia, unspecified severity, without behavioral disturbance, psychotic disturbance, mood disturbance, and anxiety; K21.9 Gastro-esophageal reflux disease without esophagitis; E86.0 Dehydration; K58.9 Irritable bowel syndrome, unspecified; Q27.33 Arteriovenous malformation of digestive system vessel; D12.4 Benign neoplasm of descending colon; M54.2 Cervicalgia; F17.210 Nicotine dependence, cigarettes, uncomplicated; Z99.81 Dependence on supplemental oxygen; M54.12 Radiculopathy, cervical region; G89.29 Other chronic pain; D64.9 Anemia, unspecified
CPT/HCPCS: 36415; 45380; 45388; 71045; 71046; 72125; 72128; 80053; 80061; 81001; 82550; 82553; 83630; 83880; 83993; 84484; 85025; 85610; 85651; 85730; 86140; 86256; 86671; 86850; 86900; 87040; 87045; 87086; 87177; 87328; 87493; 88305; 93005; 94640; 99284; J0456; J0692; J1100; J1940; J2001; J2250; J2270; J2405; J2543; J2920; J7030; J7050; P9017

== ENCOUNTER 2019-05-11 05:20 | Emergency (ER) | payer MEDICARE, OTHER ==
[~2019-05-11] VITALS: Ht 271.8 cm; Wt 92.1 kg
[~2019-05-11 05:20] MED LIST changes: +CLONIDINE HCL0.1 MG PO; +LEXAPRO10 MG PO; +LUNESTA1 MG PO; +METOPROLOL TART25 MG PO; +PREDNISONE10 MG PO; +TEMAZEPAM15 MG PO
--- OUTSIDE RECORDS SUMMARY | 2019-05-11 05:23 | XMS REPORT | Clinical Summary ---
Author Author [facility] Organization [facility] Address Unknown Phone Unavailable Care Team Providers Care Coordinator Integrated Marketing Name Role Phone Asked, No Pcp PCP Unavailable Allergies Comments Active Allergy Reactions Severity Noted Date Ipratropium-Albuterol Hives 07/17/2017 Gabapentin 06/29/2017 Iodine 06/29/2017 Medications End Date Status Medication Sig Dispensed Refills Start Date Active pantoprazole (PROTONIX) Take 40 mg by 0 40 MG EC tablet mouth daily. Active rosuvastatin (CRESTOR) 10 Take 10 mg by 0 MG tablet mouth daily. Active colestipol (COLESTID) 1 Take 1 g by 0 gram tablet mouth daily. Active donepezil (ARICEPT) 10 MG Take 10 mg by 0 tablet mouth nightly. Active diltiazem CD (CardIZEM Take 180 mg 0 CD) 180 MG 24 hr capsule by mouth daily. Active ALPRAZolam (XANAX) 1 MG Take 1 mg by 0 tablet mouth nightly as needed for anxiety. Active dicyclomine (BENTYL) 20 Take 20 mg by 0 mg tablet mouth 4 (four) times a day. Active DULoxetine (CYMBALTA) 30 Take 30 mg by 0 MG capsule mouth 2 (two) times a day. Active losartan (COZAAR) 50 MG Take 50 mg by 0 tablet mouth daily. Active memantine (NAMENDA) 10 MG Take 10 mg by 0 tablet mouth 2 (two) times a day. Active solifenacin (VESICARE) 10 Take 10 mg by 0 MG tablet mouth daily. Active umeclidinium (INCRUSE Inhale 62.5 0 ELLIPTA) 62.5 mcg daily. mcg/actuation blister with device Active albuterol sulfate Take 2.5 mg 0 (PROVENTIL) 2.5 mg/0.5 mL by solution for nebulization nebulization every 6 (six) hours as needed. Active brexpiprazole (REXULTI) Take by mouth 0 0.5 mg tablet daily. Active doxepin (SILENOR) 3 mg Take by mouth 0 tablet nightly. Active buPROPion XL (WELLBUTRIN Take 300 mg 0 XL) 300 MG 24 hr tablet by mouth daily. Active mometasone-formoterol Inhale 2 0 (DULERA) 100-5 puffs 2 (two) mcg/actuation inhaler times a day. Active predniSONE (DELTASONE) 5 Take 5 mg by 0 mg tablet mouth daily. Active acetaminophen-codeine Take 1 tablet 0 (TYLENOL WITH CODEINE #3) by mouth 2 300-30 mg per tablet (two) times a day. Active Problems Problem Noted Date Hypertension 07/17/2017 GERD (gastroesophageal reflux disease) 07/17/2017 Von Willebrand disease 07/17/2017 COPD (chronic obstructive pulmonary disease) 06/29/2017 Social History Date Tobacco Use Types Packs/Day Years Used 1984 - 2013 Former Smoker 1 30 Smokeless Tobacco: Never Used Sex Assigned at Date Recorded Not on file Industry Job Start Date Occupation Not on file Not on file Not on file Travel End Travel History Travel Start No recent travel history available. Last Filed Vital Signs Not on file Plan of Treatment Health Maintenance Due Date Last Done Comments BREAST CANCER SCREENING 2001 COLONOSCOPY SCREENING 2001 SHINGLES VACCINES (#1) 2001 65+ PNEUMOCOCCAL VACCINE 2016 (1 of 2 - PCV13) INFLUENZA VACCINE 05/09/2019 09/14/2015 Results Not on fileafter 05/10/2018 Insurance Type Payer Benefit Subscriber ID Effective Phone Address Plan / Dates Group Medicare MEDICARE MEDICARE xxxxxxxxxx 2016-P FAYE, PART A AND resent [place] B Commercial [employer] xxxxxxxxxx 2017-P LIFE INS [place] Advance Directives Patient has advance care planning documents on file. For more information, jackie pulido contact: Keven José [address] [place] [address]
[2019-05-11] MEDS ORDERED: CYCLOBENZAPRINE HCL 10 MG TAB PO ONE (06:00)
[2019-05-11 06:05] LABS: BASOPHILS # (AUTO) 0.1 (0.0-0.1); BASOPHILS % 0.3 % (0.0-1.0); EOSINOPHILS # (AUTO) 0.2 (0.0-0.4); EOSINOPHILS % 1.2 % (0.0-6.0); HEMATOCRIT 36.9 % (34.2-44.1); HEMOGLOBIN 11.4 g/dL (12.0-16.0); LYMPHOCYTES # (AUTO) 2.7 (1.0-3.2); LYMPHOCYTES % 17.8 % (18.0-39.1); MEAN CORPUSCULAR HEMOGLOBIN 25.8 pg (28-32); MEAN CORPUSCULAR HGB CONC 30.9 g/dL (31-35); MEAN CORPUSCULAR VOLUME 83.5 fL (81-99); MONOCYTES # (AUTO) 1.1 (0.2-0.8); MONOCYTES % 7.1 % (4.4-11.3); NEUTROPHILS % 72.9 % (38.7-80.0); PLATELET COUNT 354 x10e3/uL (140-360); RED BLOOD COUNT 4.42 x10e6/uL (3.6-5.1); RED CELL DISTRIBUTION WIDTH 14.3 % (11.7-14.4)
[2019-05-11 06:28] LABS: ANION GAP 14.9 mmol/L (8-16); CALCIUM 9.2 mg/dL (8.4-10.2); CREATININE, SERUM 1.17 mg/dL (0.57-1.11); POTASSIUM 3.9 mmol/L (3.5-5.1)
--- NOTE | 2019-05-11 06:38 | Diagnostic Imaging Report ---
History: Chronic neck pain Comparison studies: Cervical spine CT on 01/31/2018 Technique: Axial images were obtained through the cervical region.. Coronal and sagittal images reconstructed from the axial data. Dose modulation, iterative reconstruction, and/or weight based adjustment of the mA/kV was utilized to reduce the radiation dose to as low as reasonably achievable. Intravenous contrast: None Findings: Fractures: None. Soft tissues: No gross abnormalities. Atlantoaxial articulation: Mild degenerative changes. Alignment: Focal reversal of the usual lordosis is centered at C4. 2 mm anterolisthesis of C3 on C4, 2 mm retrolisthesis of C4 on C5. Cervicomedullary junction: No abnormalities. The foramen magnum is patent. Vertebrae: No infection or neoplasm. 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 Postsurgical changes: Patient status post anterior cervical fusion and interbody fusion from C5 through C7. A prevertebral metallic plate is in place. Paired screws are embedded within the C5, C6 and C7 vertebral bodies No hardware loosening or failure. Intervening disc spaces are fused. Degenerative changes: 1. Mildly degenerated discs at C3-4 and C4-5 and at C7-T1. 2. Moderate facet arthrosis throughout the cervical region, worst right at C3-4 and at C7-T1 and left at C2-3. 3. Foraminal stenosis, mild left at C2-3, moderate right at C3-4, moderate right at C4-5, mild left at C5-6 and C6-7 due to facet and uncoarthrosis. 4. Patent spinal canal. IMPRESSION: 1. No acute abnormalities. No fractures 2. Patient status post anterior cervical fusion from C5 7. Hardware in place. No loosening or failure. 3. Degenerative changes as described above result for the most part foraminal stenosis from C2 through C7, worst on the right at C3-4 and bilaterally at C4-5. 4. Patent spinal canal. 5. No changes compared to the cervical spine CT on 01/31/2018 6. Cannot adequately evaluate for ligament, spinal cord and or vascular abnormalities. Signed by: Dr. David aGnt M.D. on 05/11/2019 6:35 AM
[2019-05-11 07:07] VITALS: BP 143/75
== END 2019-05-11 07:12 | disposition home or self-care (01) ==
LOC: ER 05:20
DX: M54.2 Cervicalgia (principal); S16.1XXA Strain of muscle, fascia and tendon at neck level, initial encounter; M54.9 Dorsalgia, unspecified; G89.29 Other chronic pain; I10 Essential (primary) hypertension; J44.9 Chronic obstructive pulmonary disease, unspecified; K21.9 Gastro-esophageal reflux disease without esophagitis; F32.9 Major depressive disorder, single episode, unspecified; Z87.891 Personal history of nicotine dependence
CPT/HCPCS: 36415; 72125; 80048; 82550; 82553; 84484; 85025; 93005; 99283

== ENCOUNTER 2019-05-30 15:23 | Emergency (ER) | payer MEDICARE, OTHER ==
[~2019-05-30] VITALS: Ht 271.8 cm; Wt 92.1 kg
[2019-05-30 15:53] LABS: BASOPHILS # (AUTO) 0.1 (0.0-0.1); BASOPHILS % 0.3 % (0.0-1.0); EOSINOPHILS # (AUTO) 0.1 (0.0-0.4); EOSINOPHILS % 0.8 % (0.0-6.0); HEMOGLOBIN 11.4 g/dL (12.0-16.0); LYMPHOCYTES % 16.7 % (18.0-39.1); MEAN CORPUSCULAR HEMOGLOBIN 25.9 pg (28-32); MEAN CORPUSCULAR HGB CONC 30.8 g/dL (31-35); MEAN CORPUSCULAR VOLUME 84.1 fL (81-99); MONOCYTES # (AUTO) 1.1 (0.2-0.8); MONOCYTES % 5.9 % (4.4-11.3); NEUTROPHILS # (AUTO) 13.7 (2.1-6.9); NEUTROPHILS % 75.4 % (38.7-80.0); PLATELET COUNT 429 x10e3/uL (140-360); RED CELL DISTRIBUTION WIDTH 14.6 % (11.7-14.4)
[2019-05-30 16:01] LABS: INR 0.88; PROTHROMBIN TIME 12.4 seconds (11.9-14.5)
[2019-05-30 16:02] LABS: PARTIAL THROMBOPLASTIN TIME 37.7 seconds (23.8-35.5)
[2019-05-30 16:11] LABS: AMYLASE 30 U/L (25-125); ANION GAP 13.9 mmol/L (8-16); BLOOD UREA NITROGEN 18 mg/dL (7-26); BUN/CREATININE RATIO 21 (6-25); CALCIUM 9.3 mg/dL (8.4-10.2); CARBON DIOXIDE 33 mmol/L (22-29); CHLORIDE 91 mmol/L (98-107); CREATINE KINASE 46 IU/L (29-168); CREATININE, SERUM 0.86 mg/dL (0.57-1.11); EST GLOMERULAR FILTRATION RATE > 60 ML/MIN (60-); GLUCOSE 125 mg/dL (74-118); LIPASE 14 U/L (8-78); POTASSIUM 3.9 mmol/L (3.5-5.1); SODIUM 134 mmol/L (136-145)
[2019-05-30 16:37] LABS: BILIRUBIN,URINE NEGATIVE (NEGATIVE); CLARITY,URINE CLEAR (CLEAR); COLOR,URINE YELLOW (YELLOW); KETONES,URINE NEGATIVE (NEGATIVE); LEUKOCYTE ESTERASE ,URINE NEGATIVE (NEGATIVE); NITRITE,URINE NEGATIVE (NEGATIVE); PROTEIN,URINE DIPSTICK NEGATIVE (NEGATIVE); URINE UROBILINOGEN 0.2 mg/dL (0.2 - 1)
[2019-05-30 16:48] LABS: BACTERIA,URINE FEW /HPF; EPITHELIAL CELLS,URINE RARE /LPF; RENAL EPITHELIAL CELLS,URINE FEW
[2019-05-30] MEDS ORDERED: ONDANSETRON HCL INJ 2MG/ML 2ML 2 MG/ML VIAL IV STA (17:23)
[2019-05-30] MEDS ORDERED: MORPHINE SULFATE INJ 4 MG/ML INJ 1ML IV PRN (17:30)
--- NOTE | 2019-05-30 17:47 | Diagnostic Imaging Report ---
EXAM: US GALLBLADDER DATE: 05/30/2019 3:45 PM INDICATION: Abdominal pain COMPARISON: None TECHNIQUE: Transverse and longitudinal del rio scale and color doppler sonographic images of the upper abdomen were obtained. FINDINGS: LIVER 15.4 cm in the right midclavicular line. Elevated echogenicity, normal contour, no masses. GALLBLADDER No stones, sludge, wall-thickening or pericholecystic fluid. Negative sonographic Schultz's sign. BILE DUCTS No intra nor extra-hepatic biliary dilation. Common bile duct measures 0.3 cm PANCREAS: The visualized duration of the pancreas was limited secondary to bowel gas. RIGHT KIDNEY: 10.1 cm Echogenicity: Normal Collecting System: No hydronephrosis Stones: None Cyst/Mass: None VESSELS: Aorta: Visualized portions are within normal size limits Inferior Vena Cava: Visualized portions are normal Main Portal Vein: 1.2 cm, normal size with hepatopetal flow. FREE FLUID: None IMPRESSION: 1. Fatty infiltration of the liver, otherwise, unremarkable right upper quadrant ultrasound. Signed by: Dr. Rashaad Singleton MD on 05/30/2019 5:44 PM
== END 2019-05-30 18:58 | disposition home or self-care (01) ==
LOC: ER 15:23
DX: R10.11 Right upper quadrant pain (principal); I10 Essential (primary) hypertension; J44.9 Chronic obstructive pulmonary disease, unspecified; F32.9 Major depressive disorder, single episode, unspecified; Z87.891 Personal history of nicotine dependence
CPT/HCPCS: 36415; 76705; 80048; 81001; 82150; 82550; 82553; 83690; 84484; 85025; 85610; 85730; 93005; 99284; J2270; J2405

== ENCOUNTER 2020-02-04 13:07 | Inpatient (IN) | payer MEDICARE, OTHER ==
[~2020-02-04] VITALS: Ht 154.9 cm; Wt 83.9 kg
[2020-02-04] MEDS ORDERED: METHYLPREDNISOLONE SOD SUCC 125 MG/2ML VIAL IV STA (13:16)
[2020-02-04] MEDS ORDERED: LEVALBUTEROL HCL SOLN NEBU 1.25 MG/3 ML NEB INH ONE (13:30)
[2020-02-04] MEDS ORDERED: SODIUM CHLORIDE 0.9% 500ML 500 ML IV ONE (13:30)
[2020-02-04 13:35] LABS: BASOPHILS % 0.2 % (0.0-1.0); EOSINOPHILS # (AUTO) 0.1 (0.0-0.4); EOSINOPHILS % 0.5 % (0.0-6.0); HEMATOCRIT 33.1 % (34.2-44.1); HEMOGLOBIN 10.4 g/dL (12.0-16.0); MEAN CORPUSCULAR HEMOGLOBIN 25.5 pg (28-32); MEAN CORPUSCULAR HGB CONC 31.4 g/dL (31-35); MEAN CORPUSCULAR VOLUME 81.1 fL (81-99); MONOCYTES # (AUTO) 0.9 (0.2-0.8); MONOCYTES % 5.1 % (4.4-11.3); NEUTROPHILS # (AUTO) 14.9 (2.1-6.9); NEUTROPHILS % 82.5 % (38.7-80.0); PLATELET COUNT 395 x10e3/uL (140-360); RED BLOOD COUNT 4.08 x10e6/uL (3.6-5.1); RED CELL DISTRIBUTION WIDTH 14.4 % (11.7-14.4)
[2020-02-04 13:46] LABS: INR 0.93
[2020-02-04 13:47] LABS: PARTIAL THROMBOPLASTIN TIME 38.2 seconds (23.8-35.5)
[2020-02-04 13:56] LABS: ALBUMIN 3.7 g/dL (3.5-5.0); ALBUMIN/GLOBULIN RATIO 1.1 (0.8-2.0); ANION GAP 21.1 mmol/L (8-16); CALCIUM 9.2 mg/dL (8.4-10.2); CREATININE, SERUM 1.93 mg/dL (0.57-1.11); MAGNESIUM 1.9 MG/DL (1.3-2.1); POTASSIUM 3.1 mmol/L (3.5-5.1)
[2020-02-04 14:04] LABS: CREATINE KINASE MB 6.2 ng/mL (0-5.0)
[2020-02-04 14:09] LABS: STREPTOCOCCUS GRP A ANTIGEN NEGATIVE (NEGATIVE)
[2020-02-04] MEDS ORDERED: SODIUM CHLORIDE 0.9% 1000ML 1,000 ML IV STA (14:19)
[2020-02-04 14:30] LABS: B-TYPE NATRIURETIC PEPTIDE2 132.8 pg/mL (0-100)
[2020-02-04 14:36] LABS: INFLUENZAE A&B ANTIGEN (RAPID) NEGATIVE (NEGATIVE)
--- NOTE | 2020-02-04 14:59 | Diagnostic Imaging Report ---
EXAM: CHEST SINGLE (PORTABLE) DATE: 02/04/2020 2:10 PM INDICATION: Shortness of breath COMPARISON: 02/06/2018 FINDINGS/IMPRESSION: The trachea is midline. There is mild prominence of the interstitium which is nonspecific but can be seen in the setting of edema. There is no evidence for large focal consolidation, pneumothorax, or significant pleural effusion. The cardiomediastinal silhouette is within normal limits. Cervical fusion hardware again noted. No acute osseous abnormality is identified. Signed by: Dr. Mohsen Eng MD on 02/04/2020 2:56 PM
[2020-02-04] MEDS: CEFTRIAXONE SOD 1 GM/NS 50 ML 50 ML IV SCH (15:07)
[2020-02-04] MEDS ORDERED: ALPRAZOLAM 1 MG TAB PO ONE (15:15)
[2020-02-04 15:17] LABS: CLARITY,URINE SL CLOUDY (CLEAR); COLOR,URINE YELLOW (YELLOW)
[2020-02-04 15:18] LABS: BILIRUBIN,URINE NEGATIVE (NEGATIVE); KETONES,URINE NEGATIVE (NEGATIVE); LEUKOCYTE ESTERASE ,URINE NEGATIVE (NEGATIVE); NITRITE,URINE NEGATIVE (NEGATIVE); PROTEIN,URINE DIPSTICK NEGATIVE (NEGATIVE); URINE UROBILINOGEN 0.2 mg/dL (0.2 - 1)
[2020-02-04 15:30] LABS: WBC,URINE (MAN) 0-5 /HPF (0-5)
[2020-02-04 15:31] LABS: BACTERIA,URINE FEW /HPF; EPITHELIAL CELLS,URINE FEW /LPF; TRANSITIONAL EPI CELLS,URINE RARE
[2020-02-04] MEDS ORDERED: POTASSIUM CHLORIDE 20 MEQ TAB CR PO STA (15:32)
[2020-02-04] MEDS: AZITHROMYCIN 500MG/NS 250 ML 250 ML IV SCH (15:36)
[2020-02-04] MEDS ORDERED: VANCOMYCIN HCL 1GM/NS 250 ML BAG IV ONE (15:45)
[2020-02-04] MEDS ORDERED: VANCOMYCIN 1GM/NS 250 ML 250 ML IV ONE (16:00)
[2020-02-04] MEDS: SODIUM CHLORIDE 0.9% 1000ML 1,000 ML IV SCH (16:08)
[2020-02-04] MEDS ORDERED: ONDANSETRON HCL INJ 2MG/ML 2ML 2 MG/ML VIAL IV PRN (16:45)
[2020-02-04] MEDS ORDERED: ALBUTEROL SULFATE HFA 8GM INHALATION AEROSOL INH PRN (17:15)
[2020-02-04] MEDS ORDERED: DEXTROSE 50% SYRINGE 50 ML IV PRN (17:15)
[2020-02-04] MEDS ORDERED: PREDNISONE 10 MG TAB PO SCH (17:15)
[2020-02-04] MEDS: ALBUTEROL SULF 0.083% NEB SOLN 3 ML NEB NEB SCH ×2 (19:00→23:25)
--- NOTE | 2020-02-04 19:12 | Diagnostic Imaging Report ---
EXAM: CT Chest WITHOUT contrast INDICATION: sob COMPARISON: None TECHNIQUE: Chest was scanned utilizing a multidetector helical scanner from the lung apex through the level of the adrenal glands without administration of IV contrast. Absence of intravenous contrast decreases sensitivity for detection of lymphadenopathy and vascular pathology. Coronal and sagittal reformations were obtained. Routine protocol was performed. IV CONTRAST: None COMPLICATIONS: None RADIATION DOSE: Total DLP: 492.86 mGy*cm Estimated effective dose: (DLP x 0.014 x size factor) mSv CTDIvol has been reviewed. It is below the limits set by the Radiation Protocol Committee (RPC). FINDINGS: LINES/ TUBES: None. LUNGS AND AIRWAYS: There is bibasilar subsegmental atelectasis. Airways are normal. PLEURA: The pleural spaces are clear. HEART AND MEDIASTINUM: The thyroid gland is normal. No mediastinal, hilar or axillary lymphadenopathy. The heart is normal in size.. There is no pericardial effusion. There are moderate atherosclerotic calcifications in the aorta and coronary arteries. UPPER ABDOMEN: There is a significant hepatic steatosis. Calcified granulomas are seen in the spleen. BONES: There are degenerative changes in the thoracic spine. Old fracture deformities of the right ribs. Spinal hardware is present. SOFT TISSUES: Unremarkable. IMPRESSION: 1. Bibasilar subsegmental atelectasis. 2. Hepatic steatosis. Signed by: Patrick Elias MD on 02/04/2020 7:09 PM
[2020-02-04 19:40] LABS: CREATINE KINASE MB 8.9 ng/mL (0-5.0)
[2020-02-04 19:47] VITALS: BP 99/63
--- NOTE | 2020-02-04 19:52 | NUR ---
spoke with dr. maloney. pt okay to be downgraded to im[facility].
--- NOTE | 2020-02-04 20:18 | Consultation ---
DATE OF CONSULTATION: Pulmonary Consultation REASON FOR CONSULT: Shortness of breath. HISTORY OF PRESENT ILLNESS: Ms. Reyna is a 69-year-old female, well known to our service. She is a regular patient of Dr. Aden Guardado. The patient has COPD and is on Bevespi and theophylline. She presented to the emergency room with worsening shortness of breath and cough going on for the last few days. She denies any complaints of chest pain, nausea, or vomiting. COVID testing was done in the emergency room which was negative. Her last PFT in the records shows FEV1 of 65.3% and FVC of 65 with a ratio of 99. Her chest x-ray was not showing any clear-cut evidence of pneumonia. She possibly has COPD exacerbation. REVIEW OF SYSTEMS: GENERAL: Denies any fever or chills. HEAD: Denies any head trauma. ENT: Denies any earache. CVS: Denies any chest pain. RESPIRATORY: Shortness of breath. The rest of the review of systems are negative except as in HPI. PAST MEDICAL HISTORY: Appendectomy, back surgery, anxiety, heart disease, hypertension. FAMILY AND SOCIAL HISTORY: She quit smoking 5 years ago, smoked for 35+ years. Denies alcohol use. She is . She is on Bevespi, theophylline and albuterol as needed. PHYSICAL EXAMINATION: VITAL SIGNS: Temperature 97.6, pulse of 98, blood pressure 100/60, respiratory rate of 18. HEENT: Head is atraumatic and normocephalic. NECK: Supple. CHEST: Decreased air entry bilaterally. HEART: S1, S2 audible. ABDOMEN: Soft. EXTREMITIES: No pedal edema. NEUROLOGIC: Awake and alert. LABORATORY DATA: White count of 18,000. Chemistry; sodium 132, lactic acid is 4.3, BUN 39, creatinine 1.93. BNP 132.8. Chest x-ray is not showing any clear-cut evidence of pneumonia. ASSESSMENT AND PLAN: Ms. Reyna is a 69-year-old female, likely with chronic obstructive pulmonary disease exacerbation. Continue the patient on azithromycin, nebulizer and Rocephin. Hold off on the steroids for now. I will do a CT chest without contrast. Oxygen as needed to keep the O2 saturation more than or equal to 92%. The patient underwent COVID testing which was negative. Thank you for this consult. MD MARE Robertson/NARESH /[id number]
[2020-02-04 20:30] VITALS: BP 99/63
--- NOTE | 2020-02-04 20:34 | Consultation ---
DATE OF CONSULTATION: REASON FOR CONSULTATION: Pneumonia. HISTORY OF PRESENT ILLNESS: This patient, who is a very pleasant 69-year-old, who has history of COPD, history of emphysema. The patient comes into the emergency room with shortness of breath, fever and chills, not feeling well. The patient has been sick for a few days. She went to see Dr. Musa Ceballos. Her glucose was also out of control. He told to go to the emergency room, where she was evaluated and being admitted. This patient, who does have underlying history of obesity, COPD, emphysema, von Willebrand disease, depression, and diabetes mellitus. PAST SURGICAL HISTORY: Hernia repair and neck surgery. ALLERGIES: GABAPENTIN AND IODINE. SOCIAL HISTORY: There is no smoking, drug abuse, or alcohol abuse. FAMILY HISTORY: Otherwise noncontributory. LABORATORY DATA: White count 18.1, hemoglobin 10, and hematocrit 33. Sodium 136, potassium 3.1, and creatinine 1.93. Lactic acid 4.3. Liver enzyme within normal limit. Her chest x-ray reviewed. There is no large focal consolidation. REVIEW OF SYSTEMS: As mentioned above, she is just not feeling well, short of breath with cough. HEENT: There is no headache, visual changes, or hearing changes. GI: There is no nausea, no vomiting, no diarrhea. CARDIAC: There is no arrhythmia. NEURO: No seizure activity. SKIN: There are no other rashes. Her lab data reviewed. Chart reviewed. IMPRESSION: 1. Sepsis on admission, concerned about pneumonia, community-acquired, concerned about chronic obstructive pulmonary disease exacerbation. 2. Diabetes. 3. Maivr-ze-irgitgr kidney disease, creatinine 1.93. 4. Leukocytosis. 5. Anemia. Coronavirus disease 2019 was sent. Influenza A and B were negative. Agree with blood cultures and urine cultures, testing for coronavirus disease 2019, and she is currently on Rocephin, vancomycin, , and azithromycin. We will await the blood cultures. We will follow. MD EMMANUEL Salinas/MODRuth /[id number]
[2020-02-04] MEDS: CLONIDINE HCL 0.1 MG TAB PO SCH (21:00)
[2020-02-04] MEDS: BENZONATATE 100 MG CAP PO SCH (21:12)
[2020-02-04] MEDS: INSULIN REGULAR, HUMAN 100 UNIT/1 ML 3ML VIAL SQ SCH (21:19)
[2020-02-04] MEDS: TEMAZEPAM 15 MG CAP PO PRN (21:57)
[2020-02-04 22:05] VITALS: BP 116/95
[2020-02-04] MEDS: SALMETEROL/FLUTICASONE 250/50 INH SCH (23:25)
[2020-02-04 23:30] VITALS: BP 123/69
[2020-02-05] VITALS (8 sets, daily range): BP systolic 123–137; BP diastolic 60–80
[2020-02-05] MEDS: SODIUM CHLORIDE 0.9% 1000ML 1,000 ML IV SCH (01:45)
[2020-02-05] MEDS: CEFTRIAXONE SOD 1 GM/NS 50 ML 50 ML IV SCH ×2 (01:54→14:21)
[2020-02-05] MEDS: ALPRAZOLAM 1 MG TAB PO PRN ×2 (02:15→19:50)
[2020-02-05] MEDS: ALBUTEROL SULF 0.083% NEB SOLN 3 ML NEB NEB SCH ×6 (03:00→23:15)
[2020-02-05 05:04] LABS: BASOPHILS % 0.1 % (0.0-1.0); HEMATOCRIT 28.2 % (34.2-44.1); HEMOGLOBIN 9.1 g/dL (12.0-16.0); LYMPHOCYTES # (AUTO) 1.1 (1.0-3.2); LYMPHOCYTES % 8.4 % (18.0-39.1); MEAN CORPUSCULAR HEMOGLOBIN 25.9 pg (28-32); MEAN CORPUSCULAR HGB CONC 32.3 g/dL (31-35); MEAN CORPUSCULAR VOLUME 80.1 fL (81-99); MONOCYTES # (AUTO) 0.2 (0.2-0.8); MONOCYTES % 1.4 % (4.4-11.3); NEUTROPHILS # (AUTO) 11.1 (2.1-6.9); NEUTROPHILS % 88.4 % (38.7-80.0); PLATELET COUNT 342 x10e3/uL (140-360); RED BLOOD COUNT 3.52 x10e6/uL (3.6-5.1); RED CELL DISTRIBUTION WIDTH 14.6 % (11.7-14.4)
[2020-02-05 05:35] LABS: CREATINE KINASE 287 IU/L (29-168)
[2020-02-05 05:53] LABS: ALBUMIN 3.1 g/dL (3.5-5.0); ALBUMIN/GLOBULIN RATIO 0.9 (0.8-2.0); ANION GAP 14.5 mmol/L (8-16); CALCIUM 8.7 mg/dL (8.4-10.2); CREATININE, SERUM 1.48 mg/dL (0.57-1.11); POTASSIUM 4.5 mmol/L (3.5-5.1)
[2020-02-05] MEDS ORDERED: LOSARTAN-HCTZ1 EAC1 PO (06:01)
[2020-02-05] MEDS ORDERED: SYMBICORT 80-10.2 GM INH (06:01)
[2020-02-05] MEDS ORDERED: METFORMIN HCL500 MG PO (06:01)
[2020-02-05] MEDS ORDERED: PRAMIPEXOLE D0.25 MG PO (06:01)
[2020-02-05] MEDS ORDERED: ALENDRONATE SOD70 MG PO (06:01)
[2020-02-05] MEDS ORDERED: BUSPIRONE HCL5 MG PO (06:01)
[2020-02-05] MEDS ORDERED: CYMBALTA30 MG PO (06:01)
[2020-02-05] MEDS ORDERED: NAMENDA10 MG PO (06:01)
[2020-02-05] MEDS ORDERED: DICYCLOMINE HCL20 MG PO (06:01)
--- NOTE | 2020-02-05 06:17 | Diagnostic Imaging Report ---
EXAMINATION: CHEST SINGLE (PORTABLE) INDICATION: ^Y ^PNEUMONIA ^[id number] ^0550 ^Y COMPARISON: CT chest 02/04/2020 FINDINGS: AP view TUBES and LINES: None. LUNGS: Lungs are well inflated. Mild bilateral lower lobe atelectasis is unchanged. No consolidative pneumonia. There is no evidence of pneumonia or pulmonary edema. PLEURA: No pleural effusion or pneumothorax. HEART AND MEDIASTINUM: The cardiomediastinal silhouette is unremarkable. BONES AND SOFT TISSUES: No acute osseous lesion. Soft tissues are unremarkable. UPPER ABDOMEN: No free air under the diaphragm. IMPRESSION: Bilateral lower lobe atelectasis. No new acute thoracic abnormality. Signed by: Jacek Contreras MD on 02/05/2020 6:14 AM
[2020-02-05] MEDS: SALMETEROL/FLUTICASONE 250/50 INH SCH ×2 (07:00→19:00)
[2020-02-05] MEDS: INSULIN REGULAR, HUMAN 100 UNIT/1 ML 3ML VIAL SQ SCH (07:30)
[2020-02-05] MEDS ORDERED: ACETAMINOPHEN/CODEINE 300MG - 30MG TAB PO SCH (09:00)
[2020-02-05] MEDS ORDERED: METOPROLOL TARTRATE 25 MG TAB PO SCH (09:00)
[2020-02-05] MEDS ORDERED: DEXTROSE 50% SYRINGE 50 ML IV PRN (09:00)
[2020-02-05 09:37] LABS: % IRON SATURATION 11 % (15-50); IRON 33 ug/dL (50-170); TOTAL IRON BINDING CAPACITY 302 ug/dL (261-478); TRANSFERRIN 216 mg/dL (180-382)
[2020-02-05] MEDS: ESCITALOPRAM OXALATE 10 MG TAB PO SCH (09:37)
[2020-02-05] MEDS: CLONIDINE HCL 0.1 MG TAB PO SCH ×3 (09:38→21:42)
[2020-02-05] MEDS: BENZONATATE 100 MG CAP PO SCH ×3 (09:38→21:44)
[2020-02-05] MEDS: SERTRALINE HCL 50 MG TAB PO SCH (09:38)
[2020-02-05] MEDS: DONEPEZIL HCL 5 MG TAB PO SCH (09:38)
[2020-02-05] MEDS: PANTOPRAZOLE SOD 40 MG TABEC PO SCH (09:41)
[2020-02-05] MEDS: ACETYLCYSTEINE 20% INHAL SOLN 30 ML VIAL INH SCH ×2 (11:00→19:00)
[2020-02-05] MEDS: INSULIN LISPRO 100 UNIT/1 ML 3ML VIAL SQ SCH ×3 (12:20→21:33)
[2020-02-05] MEDS: MORPHINE 15 MG PO PRN ×3 (12:20→22:40)
[2020-02-05] MEDS ORDERED: LOSARTAN POTASS25 MG PO (13:35)
[2020-02-05 14:51] LABS: CREATINE KINASE 288 IU/L (29-168)
[2020-02-05] MEDS: AZITHROMYCIN 500MG/NS 250 ML 250 ML IV SCH (15:03)
--- NOTE | 2020-02-05 17:01 | NUR ---
Patient will benefit from a youth walker for home use. Addendum: 02/05/20 at 1702 by Hudson Alvarez PT Amended: Links added.
[2020-02-05] MEDS ORDERED: HYDROCHLOROTHIA25 MG PO (17:32)
[2020-02-05] MEDS ORDERED: LOSARTAN POTAS100 MG PO (17:32)
[2020-02-05] MEDS ORDERED: SIMVASTATIN40 MG PO (17:35)
[2020-02-05] MEDS ORDERED: FAMOTIDINE20 MG PO (17:37)
[2020-02-05] MEDS ORDERED: LASIX20 MG PO (18:18)
--- NOTE | 2020-02-05 18:22 | Progress Note ---
DATE: SUBJECTIVE: Ms. Reyna is currently in the intensive care unit. She was transferred. She was admitted here for sepsis. The patient is breathing better, doing better. Her COVID-19 is negative. Her white count came down to 12.54, hemoglobin 9.1. Her influenza A and B were negative. PHYSICAL EXAMINATION: GENERAL: She is currently alert. VITAL SIGNS: Stable, currently afebrile. HEENT: She is not icteric. NECK: Supple. CHEST: Clear. A few crackles bilaterally. COR: S1, S2. No S3, S4 or murmur. ABDOMEN: Soft. Bowel sounds present. No tenderness. EXTREMITIES: No edema. SKIN: No rash. IMPRESSION: 1. Acute chronic obstructive pulmonary disease exacerbation. 2. Community-acquired pneumonia. Rocephin and azithromycin, clinically seems to be getting better, stable from Infectious Disease point of view. 3. Continue oral antibiotic as ordered. We will follow. MD EMMANUEL Salinas/NARESH /[id number]
[2020-02-05] MEDS ORDERED: FUROSEMIDE 20 MG TAB PO PRN (18:30)
--- NOTE | 2020-02-05 18:35 | NUR ---
Received patient from ICU via wheelchair. AAOx2 person and place, walking to the bathroom. Respirations even and unlabored. Sob with exertion. O2 3L NC. Oriented to room. Instructed to use call light for assistance. Side rails upx2, call light within reach, bed alarm on.
[2020-02-05] MEDS ORDERED: NON-FORMULARY MEDICATION (Trazodone Hcl 100 MG) PO SCH (21:00)
[2020-02-05] MEDS ORDERED: NON-FORMULARY MEDICATION (Diltiazem Hcl (Diltiazem Er) 180 MG) PO SCH (21:00)
[2020-02-05] MEDS: INSULIN GLARGINE 100 UNITS/ML VIAL SQ SCH (21:32)
[2020-02-05] MEDS: DILTIAZEM HCL 180 MG CAP ER PO SCH (21:42)
[2020-02-05] MEDS: TRAZODONE HCL 50 MG TAB PO SCH (21:42)
[2020-02-05] MEDS: METOPROLOL TARTRATE 25 MG TAB PO SCH (21:43)
[2020-02-05] MEDS: DOXEPIN HCL 10 MG CAP PO SCH (21:44)
[2020-02-05] MEDS: SIMVASTATIN 40 MG TAB PO SCH (21:45)
[2020-02-05] MEDS: TEMAZEPAM 15 MG CAP PO PRN (21:45)
[2020-02-06] VITALS (12 sets, daily range): BP systolic 101–119; BP diastolic 50–98
[2020-02-06] MEDS: ALBUTEROL SULF 0.083% NEB SOLN 3 ML NEB NEB SCH ×5 (03:05→23:30)
[2020-02-06] MEDS: CEFTRIAXONE SOD 1 GM/NS 50 ML 50 ML IV SCH ×2 (04:10→15:53)
[2020-02-06] MEDS ORDERED: SODIUM CHLORIDE 0.9% 250ML 250 ML ONE (04:12)
--- NOTE | 2020-02-06 04:13 | NUR ---
notifed by telemetry that patient was having low o2 saturations between 40% and 60%, assessed patient and found patient was asleep having apneic episodes. RT called to assess patient and he confirmed that patient was sleep apneic and needed a bipap. patient was confused upon waking and reoriented to time and place, explained to her that she needed a bipap and patient stated she had one at home and this was not a new problem, but could not remember her settings. rt set patient up on bipap with settings of 12/7, 18, and 50%. patient is responding well. will continue to monitor.
--- NOTE | 2020-02-06 06:31 | NUR ---
DR. SANDHU NOTIFIED OF PATIENTS EPISODES OF SLEEP APNEA AND THE USE OF BIPAP, ORDER FOR BIPAP RECIEVED
[2020-02-06] MEDS: ACETYLCYSTEINE 20% INHAL SOLN 30 ML VIAL INH SCH ×2 (06:35→19:50)
[2020-02-06] MEDS: SALMETEROL/FLUTICASONE 250/50 INH SCH ×2 (06:35→19:50)
--- NOTE | 2020-02-06 07:00 | NUR ---
Received bedside shift report from off going nurse. RT at bedside with the patient. Patient lethargic arousal with calling name and shaking the patient's arms. Telemetry applied and working. Bed alarm applied and working. Bed in lowest position and locked. Call light within reach.
[2020-02-06] MEDS: INSULIN LISPRO 100 UNIT/1 ML 3ML VIAL SQ SCH ×4 (07:30→21:00)
--- NOTE | 2020-02-06 08:00 | NUR ---
Paged Dr. Guardado due to the patient being lethargic and more confused today , patient oxygen drops down into the 70s at times after being taken off of the BIPAP. Patient aroused to verbal stimuli, RN oriented to time and place. Patient on 3 lpm/NC. Awaiting a return call from Dr. Guardado.
[2020-02-06 08:59] LABS: BASOPHILS # (AUTO) 0.1 (0.0-0.1); BASOPHILS % 0.4 % (0.0-1.0); EOSINOPHILS % 0.3 % (0.0-6.0); HEMATOCRIT 32.3 % (34.2-44.1); HEMOGLOBIN 9.8 g/dL (12.0-16.0); LYMPHOCYTES # (AUTO) 2.3 (1.0-3.2); LYMPHOCYTES % 18.9 % (18.0-39.1); MEAN CORPUSCULAR HEMOGLOBIN 25.2 pg (28-32); MEAN CORPUSCULAR HGB CONC 30.3 g/dL (31-35); MONOCYTES % 8.4 % (4.4-11.3); NEUTROPHILS # (AUTO) 8.5 (2.1-6.9); NEUTROPHILS % 69.5 % (38.7-80.0); PLATELET COUNT 335 x10e3/uL (140-360); RED BLOOD COUNT 3.89 x10e6/uL (3.6-5.1); RED CELL DISTRIBUTION WIDTH 14.6 % (11.7-14.4)
[2020-02-06] MEDS: INSULIN GLARGINE 100 UNITS/ML VIAL SQ SCH ×2 (09:00→21:41)
[2020-02-06] MEDS ORDERED: ALPRAZOLAM 0.25 MG TAB PO PRN (09:00)
[2020-02-06] MEDS ORDERED: NALOXONE HCL INJ 0.4 MG/ML AMP IV PRN (09:00)
[2020-02-06] MEDS ORDERED: PREDNISONE 10 MG TAB PO SCH (09:00)
[2020-02-06 09:14] LABS: ANION GAP 11.4 mmol/L (8-16); CALCIUM 8.8 mg/dL (8.4-10.2); CREATININE, SERUM 1.12 mg/dL (0.57-1.11); POTASSIUM 4.4 mmol/L (3.5-5.1)
[2020-02-06] MEDS: PANTOPRAZOLE SOD 40 MG TABEC PO SCH (09:21)
[2020-02-06] MEDS: DONEPEZIL HCL 5 MG TAB PO SCH (09:21)
[2020-02-06 09:22] LABS: ABG HCO3 37 mmol/L (22-26); ABG PCO2 62 mmHg (35-45); ABG PH 7.39 (7.35-7.45)
[2020-02-06] MEDS: BUSPIRONE HCL 5 MG TAB PO SCH (09:22)
[2020-02-06] MEDS: LOSARTAN POTASSIUM 100 MG TAB PO SCH (09:24)
[2020-02-06] MEDS: CLONIDINE HCL 0.1 MG TAB PO SCH ×3 (09:24→21:40)
[2020-02-06] MEDS: HYDROCHLOROTHIAZIDE 25 MG TAB PO SCH (09:25)
[2020-02-06] MEDS: ESCITALOPRAM OXALATE 10 MG TAB PO SCH (09:26)
[2020-02-06] MEDS: MEMANTINE 10 MG TAB PO SCH ×2 (09:26→19:18)
[2020-02-06] MEDS: DULOXETINE HCL 30 MG DELAYED RELEASE PO SCH ×2 (09:26→19:18)
[2020-02-06] MEDS: SERTRALINE HCL 50 MG TAB PO SCH (09:30)
[2020-02-06] MEDS: METOPROLOL TARTRATE 25 MG TAB PO SCH ×2 (09:31→21:40)
--- NOTE | 2020-02-06 09:46 | NUR ---
Attempted physical therapy treatment at 09. Per TOBY Huerta the patient is lethargic and does not have stable lab values or stable vitals. She is being transferred back to ICU as soon as a bed is available. PT will be put on hold. MD can put in a resume physical therapy when pt is stable and ready to return to PT. Addendum: 02/06/20 at 0947 by Vee Childs PT Amended: Links added.
[2020-02-06 10:22] LABS: EOSINOPHILS % (MANUAL) 1 % (0-7); LYMPHOCYTES % (MANUAL) 12 % (19-48); METAMYELOCYTES % (MANUAL) 1 % (0-0); MONOCYTES % (MANUAL) 8 % (3.4-9.0); NEUTROPHILS % (MANUAL) 74 % (40-74)
[2020-02-06 10:23] LABS: MYELOCYTES % (MANUAL) 3 % (0-0); PLATELET ESTIMATE ADEQUATE; PLATELET MORPHOLOGY COMMENT NORMAL; RBC MORPHOLOGY COMMENT NORMAL
--- NOTE | 2020-02-06 10:32 | Diagnostic Imaging Report ---
X-ray chest AP portable Comparison: 02/05/2020 History: Shortness of breath Findings: Poor history effort on this exam with crowding of primary markings. Faint opacity in the right middle lung zone just above the minor fissure, difficult to obtain the exact nature because of the poor inspiratory effort and overlying rib shadow. Left lower lung zone discoid/subsegmental atelectasis. No other significant focal airspace disease, interstitial disease or lung nodules on this exam. No pleural effusion. No pneumothorax. Apparent change in mediastinal contours slightly because of the poor respiratory effort. Other chronic changes such as cervical fusion, possible thoracic vertebroplasty, possible right hilar calcified lymph nodes, degenerative changes of the bone are also noted again. Impression: Repeat x-ray with a better inspiratory effort is recommended to better evaluate the right middle lung zone opacity. Signed by: Jeff Oro MD on 02/06/2020 10:28 AM
--- NOTE | 2020-02-06 11:25 | Progress Note ---
DATE: SUBJECTIVE: The patient is seen and evaluated. Discussed with Dr. Walsh in detail. REVIEW OF SYSTEMS: Unable to obtain review of systems secondary to the patient's medical condition. The patient had 50 mg of Restoril, 1 mg of Xanax, and 15 mg of morphine last night, having a hard time waking up, desats off BiPAP to 70s, and ABGs ordered by Pulmonology with results pending. The patient is lethargic and the plan is to have the patient transferred down to ICU. OBJECTIVE: VITAL SIGNS: Temperature is 98.4, pulse is 60, respirations 22, and blood pressure 111/71. GENERAL: No acute distress. Opens eyes and goes back to sleep. CV: S1 and S2. CHEST: Decreased breath sounds, equal expansion. ABDOMEN: Morbidly obese, soft. Positive bowel sounds. HEENT: Moist. No pallor. No JVD. EXTREMITIES: Some trace edema. MEDICATIONS: Medications reviewed. The patient is on Rocephin and Zithromax from ID point of view. MICROBIOLOGY: Blood culture, throat culture, and urine culture were negative so far from 02/03. RADIOLOGY STUDIES: Chest x-ray from today showed poor respiratory effort and needs better respiratory effort, it is recommended to better evaluate the right middle lung zone opacity. ASSESSMENT AND PLAN: 1. Itpnv-te-adixawf obstructive pulmonary disease. 2. Community-acquired pneumonia. 3. Altered mental status. Please see above. The patient is on Zithromax and Rocephin. Follow with ABG. The patient at this point to go down to ICU. Discussed with Dr. Walsh. Discussed with the nurse. Continue to monitor the patient. Continue to follow with the labs. Further management of this patient is based on daily findings on laboratory and physical examination. The patient also has chronic renal insufficiency with a GFR of 48, improved from 26. Leukocytosis improving. Dictated by Patrick Hewitt PA-C (Al) Boris Walsh MD /MODL /[id number]
[2020-02-06] MEDS: IRON SUCROSE 100 MG in SODIUM CHLORIDE 0.9% 100 ML 100 ML IV SCH (11:57)
--- NOTE | 2020-02-06 13:12 | NUR ---
Report given to Nemesio LUIS of patients status. Patient transferred via bed by RT and RN to ICU. Patient alert to person and place. Family notified about patient being moved to ICU due to a change in condition.
[2020-02-06] MEDS: AZITHROMYCIN 500MG/NS 250 ML 250 ML IV SCH (15:53)
--- NOTE | 2020-02-06 18:45 | NUR ---
Report received. Assumed care. Assessment done. See interventions. IV NS @ 125ml/hr. O2 per NC @ 3L.
--- NOTE | 2020-02-06 19:30 | NUR ---
Assisted to restroom to void. States had diarrhea stool. Not seen. On the way back to bed pt took bite of chicken and swallowed after minimal chewing. Began coughing and c/o SOB. O2 sats 98%. Able to drink water without difficulty. Coughed x 5-10 min and was able to dislodge food. Encouraged to chew more when she eats. Requesting more food at this time. Advised to wait until hs blood sugar done.
--- NOTE | 2020-02-06 20:00 | NUR ---
Resp tx given. No further coughing observed.
[2020-02-06] MEDS: TRAZODONE HCL 50 MG TAB PO SCH (21:00)
[2020-02-06] MEDS: SIMVASTATIN 40 MG TAB PO SCH (21:40)
[2020-02-06] MEDS: DOXEPIN HCL 10 MG CAP PO SCH (21:40)
[2020-02-06] MEDS: DILTIAZEM HCL 180 MG CAP ER PO SCH (21:40)
--- NOTE | 2020-02-06 22:00 | NUR ---
HS snack given per request.
[2020-02-07] VITALS (22 sets, daily range): BP systolic 100–142; BP diastolic 49–79
[2020-02-07] MEDS: ALBUTEROL SULF 0.083% NEB SOLN 3 ML NEB NEB SCH ×6 (01:00→20:50)
[2020-02-07] MEDS: CEFTRIAXONE SOD 1 GM/NS 50 ML 50 ML IV SCH ×2 (02:30→13:04)
[2020-02-07] MEDS: INSULIN LISPRO 100 UNIT/1 ML 3ML VIAL SQ SCH ×4 (07:30→21:00)
[2020-02-07] MEDS: PANTOPRAZOLE SOD 40 MG TABEC PO SCH (07:42)
[2020-02-07] MEDS: ACETYLCYSTEINE 20% INHAL SOLN 30 ML VIAL INH SCH ×2 (07:50→20:50)
[2020-02-07] MEDS: BUSPIRONE HCL 5 MG TAB PO SCH (08:35)
[2020-02-07] MEDS: DONEPEZIL HCL 5 MG TAB PO SCH (08:35)
[2020-02-07] MEDS: LOSARTAN POTASSIUM 100 MG TAB PO SCH (08:36)
[2020-02-07] MEDS: DULOXETINE HCL 30 MG DELAYED RELEASE PO SCH ×2 (08:36→16:13)
[2020-02-07] MEDS: HYDROCHLOROTHIAZIDE 25 MG TAB PO SCH (08:36)
[2020-02-07] MEDS: ESCITALOPRAM OXALATE 10 MG TAB PO SCH (08:36)
[2020-02-07] MEDS: CLONIDINE HCL 0.1 MG TAB PO SCH ×3 (08:36→21:23)
[2020-02-07] MEDS: METOPROLOL TARTRATE 25 MG TAB PO SCH ×2 (08:37→21:23)
[2020-02-07] MEDS: SERTRALINE HCL 50 MG TAB PO SCH (08:37)
[2020-02-07] MEDS: MEMANTINE 10 MG TAB PO SCH ×2 (08:37→16:13)
[2020-02-07] MEDS: INSULIN GLARGINE 100 UNITS/ML VIAL SQ SCH ×2 (08:38→21:22)
[2020-02-07] MEDS: TRAMADOL HCL 50 MG TAB PO PRN ×2 (09:33→16:13)
[2020-02-07] MEDS: IRON SUCROSE 100 MG in SODIUM CHLORIDE 0.9% 100 ML 100 ML IV SCH (10:35)
[2020-02-07] MEDS: SALMETEROL/FLUTICASONE 250/50 INH SCH ×2 (11:15→20:50)
[2020-02-07] MEDS: AZITHROMYCIN 500MG/NS 250 ML 250 ML IV SCH (14:16)
--- NOTE | 2020-02-07 16:55 | Progress Note ---
DATE: SUBJECTIVE: She says she is still short of breath. She is feeling better. She is weak overall. LABORATORY DATA: Reviewed. White count 12.21. Her sodium 140, potassium 4.4 with creatinine of 1.12. Her cultures are negative. Chest x-ray, chronic changes. PHYSICAL EXAMINATION: GENERAL: She is currently alert, oriented, does not seem in acute distress VITAL SIGNS: Stable, currently afebrile. HEENT: Not icteric. NECK: Supple. CHEST: A few crackles. COR: S1, S2. No S3, S4 or murmur. ABDOMEN: Soft. MEDICATIONS: She is currently on: 1. Rocephin. 2. Insulin. 3. Zoloft. 4. Cymbalta. 5. Catapres. 6. Advair. 7. Azithromycin. 8. Prednisone 5 mg. IMPRESSION: 1. Chronic obstructive pulmonary disease exacerbation. 2. Community-acquired pneumonia. We will discuss with Pulmonary about starting her on high-dose steroid. We will follow. MD EMMANUEL Salinas/MODL /[id number]
--- NOTE | 2020-02-07 19:19 | NUR ---
received report from day nurse. patient is resting comfortably in the bed. bed is in lowest position and call light is within reach. will continue to monitor patient.
[2020-02-07] MEDS: DOXEPIN HCL 10 MG CAP PO SCH (21:23)
[2020-02-07] MEDS: SIMVASTATIN 40 MG TAB PO SCH (21:23)
[2020-02-07] MEDS: TRAZODONE HCL 50 MG TAB PO SCH (21:23)
[2020-02-07] MEDS: DILTIAZEM HCL 180 MG CAP ER PO SCH (21:24)
--- NOTE | 2020-02-07 21:43 | NUR ---
Patient is coughing. paged. awaiting call back.
--- NOTE | 2020-02-07 22:00 | NUR ---
MD RETURNED CALL RECEIVED NEW ORDER FOR ALICIA STACK. WILL CONTINUE TO MONITOR PATIENT FOR COUGH.
[2020-02-07] MEDS: BENZONATATE 100 MG CAP PO SCH (22:19)
[2020-02-08] VITALS (9 sets, daily range): BP systolic 105–146; BP diastolic 55–70
[2020-02-08] MEDS ORDERED: SODIUM CHLORIDE 0.9% 250ML 250 ML ONE (01:54)
[2020-02-08] MEDS: CEFTRIAXONE SOD 1 GM/NS 50 ML 50 ML IV SCH (02:14)
[2020-02-08] MEDS: ALBUTEROL SULF 0.083% NEB SOLN 3 ML NEB NEB SCH ×6 (04:10→23:25)
--- NOTE | 2020-02-08 06:40 | NUR ---
REPORT GIVEN TO DAY NURSE. PATIENT IS RESTING IN THE BED. BED IS IN LOWEST POSITION AND CALL LIGHT IS WITHIN REACH
[2020-02-08] MEDS: SALMETEROL/FLUTICASONE 250/50 INH SCH ×2 (07:25→19:40)
[2020-02-08] MEDS: ACETYLCYSTEINE 20% INHAL SOLN 30 ML VIAL INH SCH ×2 (07:25→19:40)
[2020-02-08] MEDS: INSULIN LISPRO 100 UNIT/1 ML 3ML VIAL SQ SCH ×4 (07:30→20:55)
[2020-02-08] MEDS: PANTOPRAZOLE SOD 40 MG TABEC PO SCH (07:48)
[2020-02-08] MEDS: DONEPEZIL HCL 5 MG TAB PO SCH (08:56)
[2020-02-08] MEDS: CLONIDINE HCL 0.1 MG TAB PO SCH ×3 (08:56→20:53)
[2020-02-08] MEDS: BUSPIRONE HCL 5 MG TAB PO SCH (08:56)
[2020-02-08] MEDS: METOPROLOL TARTRATE 25 MG TAB PO SCH ×2 (08:57→20:53)
[2020-02-08] MEDS: BENZONATATE 100 MG CAP PO SCH ×3 (08:57→20:53)
[2020-02-08] MEDS: LOSARTAN POTASSIUM 100 MG TAB PO SCH (08:57)
[2020-02-08] MEDS: ESCITALOPRAM OXALATE 10 MG TAB PO SCH (08:57)
[2020-02-08] MEDS: DULOXETINE HCL 30 MG DELAYED RELEASE PO SCH ×2 (08:57→16:57)
[2020-02-08] MEDS: SERTRALINE HCL 50 MG TAB PO SCH (08:57)
[2020-02-08] MEDS: HYDROCHLOROTHIAZIDE 25 MG TAB PO SCH (08:57)
[2020-02-08] MEDS: MEMANTINE 10 MG TAB PO SCH ×2 (08:57→16:57)
[2020-02-08] MEDS: INSULIN GLARGINE 100 UNITS/ML VIAL SQ SCH ×2 (08:58→20:56)
[2020-02-08] MEDS: TRAMADOL HCL 50 MG TAB PO PRN (09:00)
[2020-02-08] MEDS ORDERED: PREDNISONE 5 MG TAB PO SCH (09:00)
[2020-02-08] MEDS ORDERED: FUROSEMIDE INJ 10 MG/ML 2 ML VIAL IV NR (09:30)
--- NOTE | 2020-02-08 09:48 | Pulmonary Function Test ---
DATE OF STUDY: REFERRING PHYSICIAN: PROCEDURE: Spirometry report. The patient of [facility] and Dr. Musa Ceballos. FINDINGS: Severe obstructive pulmonary disease. Forced vital capacity 1.02 L, 66% of predicted. FEV1 0.52 L, 45%. FEV1 and FVC ratio is 51%. FEF 25-75, 18%. There is significant improvement following inhalation of bronchodilators. A 5% FVC, 13% FEV1 to 0.59 L, 52% of predicted. IMPRESSION: Severe obstructive pulmonary disease. Concomitant restriction cannot be excluded. Aden Guardado MD DS/MODL /[id number]
[2020-02-08] MEDS: PREDNISONE 5 MG TAB PO SCH (10:49)
[2020-02-08] MEDS: IRON SUCROSE 100 MG in SODIUM CHLORIDE 0.9% 100 ML 100 ML IV SCH (10:50)
[2020-02-08] MEDS ORDERED: VANCOMYCIN 250MG/5ML ORAL SOLN PO SCH (12:00)
--- NOTE | 2020-02-08 13:25 | NUR ---
Met with Dr. Supa Ceballos. He stated he will transfer pt to [facility] tomorrow, as she now has agreed. He will see patient before transfer. CM met with pt and she agrees to go to [facility] and signed choice letter. Copy placed in transition folder at bedside, and original placed in chart. STU notified Marisa, liaison with [facility] Marisa: cell [phone] [facility]: [phone]; fax [phone] [facility] [place] [address]
--- NOTE | 2020-02-08 14:01 | NUR ---
[facility], and Marisa (liaison) called to state she did receive it. She will call w/ MOT tomorrow. MOT initiated and placed at nurses station along w/ clinical information to go w/ pt.
[2020-02-08] MEDS: HYDROCODONE/APAP 5MG-325MG TAB PO PRN ×2 (15:27→20:53)
[2020-02-08] MEDS: CHOLESTYRAMINE 4 GM PACKET PO SCH (16:58)
[2020-02-08] MEDS: DILTIAZEM HCL 180 MG CAP ER PO SCH (20:52)
[2020-02-08] MEDS: SIMVASTATIN 40 MG TAB PO SCH (20:53)
[2020-02-08] MEDS: DOXEPIN HCL 10 MG CAP PO SCH (20:53)
[2020-02-08] MEDS: TRAZODONE HCL 50 MG TAB PO SCH (20:53)
[2020-02-09] VITALS (7 sets, daily range): BP systolic 98–144; BP diastolic 50–70
[2020-02-09] MEDS: HYDROCODONE/APAP 5MG-325MG TAB PO PRN ×3 (03:15→16:50)
[2020-02-09] MEDS: ALBUTEROL SULF 0.083% NEB SOLN 3 ML NEB NEB SCH ×4 (03:40→15:00)
[2020-02-09 05:21] LABS: BASOPHILS % 0.2 % (0.0-1.0); EOSINOPHILS # (AUTO) 0.2 (0.0-0.4); EOSINOPHILS % 1.6 % (0.0-6.0); HEMATOCRIT 29.8 % (34.2-44.1); HEMOGLOBIN 9.4 g/dL (12.0-16.0); LYMPHOCYTES # (AUTO) 3.6 (1.0-3.2); LYMPHOCYTES % 25.8 % (18.0-39.1); MEAN CORPUSCULAR HEMOGLOBIN 25.9 pg (28-32); MEAN CORPUSCULAR HGB CONC 31.5 g/dL (31-35); MEAN CORPUSCULAR VOLUME 82.1 fL (81-99); MONOCYTES # (AUTO) 0.9 (0.2-0.8); MONOCYTES % 6.7 % (4.4-11.3); NEUTROPHILS % 64.4 % (38.7-80.0); PLATELET COUNT 323 x10e3/uL (140-360); RED BLOOD COUNT 3.63 x10e6/uL (3.6-5.1); RED CELL DISTRIBUTION WIDTH 14.9 % (11.7-14.4)
[2020-02-09 05:50] LABS: ANION GAP 10.3 mmol/L (8-16); BLOOD UREA NITROGEN 10 mg/dL (7-26); BUN/CREATININE RATIO 11 (6-25); CALCIUM 8.5 mg/dL (8.4-10.2); CARBON DIOXIDE 35 mmol/L (22-29); CHLORIDE 100 mmol/L (98-107); CREATININE, SERUM 0.88 mg/dL (0.57-1.11); EST GLOMERULAR FILTRATION RATE > 60 ML/MIN (60-); GLUCOSE 101 mg/dL (74-118); POTASSIUM 3.3 mmol/L (3.5-5.1); SODIUM 142 mmol/L (136-145)
--- NOTE | 2020-02-09 06:33 | Diagnostic Imaging Report ---
EXAMINATION: CHEST 2 VIEWS INDICATION: Shortness of breath COMPARISON: None FINDINGS: PA and lateral views TUBES and LINES: None. LUNGS: Unchanged patchy opacities of the mid to lower lung zones, likely subsegmental atelectasis. No new pulmonary consolidation. PLEURA: No pleural effusion or pneumothorax. HEART AND MEDIASTINUM: The cardiomediastinal silhouette is unremarkable. BONES AND SOFT TISSUES: No acute osseous lesion. Cervical spine hardware. Soft tissues are unremarkable. UPPER ABDOMEN: No free air under the diaphragm. IMPRESSION: Patchy airspace opacities of the right mid and bilateral lower lungs favor atelectasis. No substantial interval change when compared to the previous study from 02/06/2020. Signed by: Jacek Contreras MD on 02/09/2020 6:30 AM
[2020-02-09] MEDS: ACETYLCYSTEINE 20% INHAL SOLN 30 ML VIAL INH SCH (07:16)
[2020-02-09] MEDS: INSULIN LISPRO 100 UNIT/1 ML 3ML VIAL SQ SCH ×3 (07:30→16:30)
[2020-02-09] MEDS: SALMETEROL/FLUTICASONE 250/50 INH SCH (07:30)
[2020-02-09] MEDS: PANTOPRAZOLE SOD 40 MG TABEC PO SCH (08:11)
[2020-02-09] MEDS: LOSARTAN POTASSIUM 100 MG TAB PO SCH (08:11)
[2020-02-09] MEDS: BUSPIRONE HCL 5 MG TAB PO SCH (08:11)
[2020-02-09] MEDS: DONEPEZIL HCL 5 MG TAB PO SCH (08:11)
[2020-02-09] MEDS: ESCITALOPRAM OXALATE 10 MG TAB PO SCH (08:11)
[2020-02-09] MEDS: HYDROCHLOROTHIAZIDE 25 MG TAB PO SCH (08:11)
[2020-02-09] MEDS: DULOXETINE HCL 30 MG DELAYED RELEASE PO SCH ×2 (08:11→16:42)
[2020-02-09] MEDS: PREDNISONE 5 MG TAB PO SCH (08:11)
[2020-02-09] MEDS: CLONIDINE HCL 0.1 MG TAB PO SCH ×2 (08:11→15:00)
[2020-02-09] MEDS: SERTRALINE HCL 50 MG TAB PO SCH (08:12)
[2020-02-09] MEDS: METOPROLOL TARTRATE 25 MG TAB PO SCH (08:12)
[2020-02-09] MEDS: MEMANTINE 10 MG TAB PO SCH ×2 (08:12→16:42)
[2020-02-09] MEDS: CHOLESTYRAMINE 4 GM PACKET PO SCH ×2 (08:12→17:54)
[2020-02-09] MEDS: BENZONATATE 100 MG CAP PO SCH ×2 (08:12→16:42)
[2020-02-09] MEDS: INSULIN GLARGINE 100 UNITS/ML VIAL SQ SCH (09:42)
--- NOTE | 2020-02-09 10:06 | NUR ---
PATIENT ACCEPTED TO [facility] [place]. ROOM 508, CALL REPORT [phone]. UPDATED MOT. COVID 19 FORM COMPLETED AND SIGNED BY DR. VLAD BLUE. COPY TO CHART AND ORIGINAL PLACED IN PACKET. UPDATED OSMAN LUIS ON ALL. EXPLAINED PT CANNOT TRANSFER UNTIL DR. Supa BLUE SEE'S HER TODAY. VERBALIZED UNDERSTANDING.
[2020-02-09] MEDS ORDERED: POTASSIUM CHLORIDE 10MEQ EA PO NR (12:30)
== END 2020-02-10 07:37 | disposition home health service, planned readmission (86) | DRG 871 ==
LOC: ER 13:07 → ERHOLD 13:27 → ICU 19:48 → MED/SURG3 02-05 19:03 → ICU 02-06 13:02 → IMCU 02-07 18:02
DX: A41.9 Sepsis, unspecified organism (principal); J15.9 Unspecified bacterial pneumonia; R65.21 Severe sepsis with septic shock; J44.1 Chronic obstructive pulmonary disease with (acute) exacerbation; D68.0 Von Willebrand disease; N17.9 Acute kidney failure, unspecified; F32.9 Major depressive disorder, single episode, unspecified; Z87.891 Personal history of nicotine dependence; Z88.8 Allergy status to other drugs, medicaments and biological substances; Z91.041 Radiographic dye allergy status; Z82.49 Family history of ischemic heart disease and other diseases of the circulatory system; E66.01 Morbid (severe) obesity due to excess calories; Z68.35 Body mass index [BMI] 35.0-35.9, adult; G89.4 Chronic pain syndrome; E11.9 Type 2 diabetes mellitus without complications; Z11.59 Encounter for screening for other viral diseases; N18.9 Chronic kidney disease, unspecified; Z79.84 Long term (current) use of oral hypoglycemic drugs
CPT/HCPCS: 36415; 36600; 71045; 71046; 71250; 80048; 80053; 81001; 82550; 82553; 82805; 82948; 83518; 83540; 83605; 83735; 83880; 84466; 84484; 85025; 85379; 85610; 85730; 87040; 87070; 87086; 87400; 87635; 93005; 94060; 94640; 94660; 94664; 96372; 97139; 99285; J0456; J0696; J1756; J1815; J1817; J2310; J2405; J2930; J3370; J7030; J7040; J7050; J7512

== ENCOUNTER 2020-04-29 16:35 | Inpatient (IN) | payer MEDICARE, OTHER ==
[~2020-04-29] VITALS: Ht 152.4 cm; Wt 83.9 kg
[~2020-04-29 16:35] MED LIST changes: +ALENDRONATE SOD70 MG PO; +BUSPIRONE HCL5 MG PO; +CYMBALTA30 MG PO; +DICYCLOMINE HCL20 MG PO; +FAMOTIDINE20 MG PO; +HYDROCHLOROTHIA25 MG PO; +LASIX20 MG PO; +LOSARTAN POTAS100 MG PO; +LOSARTAN POTASS25 MG PO; +LOSARTAN-HCTZ1 EAC1 PO; +METFORMIN HCL500 MG PO; +NAMENDA10 MG PO; +PRAMIPEXOLE D0.25 MG PO; +SIMVASTATIN40 MG PO; +SYMBICORT 80-10.2 GM INH
--- NOTE | 2020-04-29 16:53 | Emergency Department Note ---
History of Present Illnes History of Present Illness History of Present Illness This is a 69 year old female arrived to the ED with complaints of worsening shortness of breath and extremity swelling. Pt states she is on baseline 2L home O2- has been requiring more. Pt with history of COPD. Pt denies cough, fever. Lives with son who does work outside the house. Onset (how long ago): day(s) Radiation: Reports non-radiation Severity: mild Onset quality: gradual Duration (how long): day(s) Timing of current episode: constant Progression: worsening Chronicity: new Relieving factors: none Exacerbating factors: none Past Medical/Family History Physician Review I have reviewed the patient's past medical and family history. Any updates have been documented here. Past Medical History Past Medical History: Hypertension, Diabetes, COPD Other Medical History: VON [employer] MAJOR DEPRESSIVE DISORDER EMPHASEMA "early onset Alzheimer's" Past Surgical History: Appendectomy, Hysterectomy Other Surgery: HERNIA REPAIR tonsillectomy NOSE SX NECK SX TUMOR REMOVAL FROM BACK Other Last Tetanus: 2006 Review of Systems Review of Systems Constitutional: Reports no symptoms, Reports as per HPI EENTM: Reports no symptoms Cardiovascular: Reports no symptoms Respiratory: Reports as per HPI, Reports dyspnea ( ) Gastrointestinal: Reports no symptoms Genitourinary: Reports no symptoms Musculoskeletal: Reports as per HPI, Reports joint swelling Integumentary: Reports no symptoms Neurological: Reports no symptoms Psychological: Reports no symptoms Endocrine: Reports no symptoms Hematological/Lymphatic: Reports no symptoms Review of other systems: All other systems negative Physical Exam Related Data Allergies: Coded Allergies: gabapentin (Verified Allergy, Severe, 04/17/13) iodine (Verified Allergy, Mild, 09/16/08) ipratropium bromide (Verified Allergy, Unknown, 11/21/16) Vital signs reviewed: Yes Physical Exam CONSTITUTIONAL Constitutional: Present well-developed, Present well-nourished HENT HENT: Present normocephalic, Present atraumatic, Present oropharynx clear/moist, Present nose normal HENT L/R: Present left ext ear normal, Present right ext ear normal EYES Eyes: Reports PERRL, Reports conjunctivae normal NECK Neck: Present ROM normal PULMONARY Pulmonary: Present effort normal, Present breath sounds normal CARDIOVASCULAR Cardiovascular: Present regular rhythm, Present heart sounds normal, Present capillary refill normal, Present normal rate GASTROINTESTINAL Abdominal: Present soft, Present nontender, Present bowel sounds normal GENITOURINARY Genitourinary: Present exam deferred SKIN Skin: Present warm, Present dry MUSCULOSKELETAL Musculoskeletal: Present ROM normal NEUROLOGICAL Neurological: Present alert, Present oriented x 3, Present no gross motor or sensory deficits PSYCHOLOGICAL Psychological: Present mood/affect normal, Present judgement normal Results Laboratory Lab results reviewed: Yes Laboratory comments Laboratory Tests Test 04/29/20 16:47 White Blood Count 14.90 x10e3/uL (4.8-10.8) Red Blood Count 4.44 x10e6/uL (3.6-5.1) Hemoglobin 11.0 g/dL (12.0-16.0) Hematocrit 37.2 % (34.2-44.1) Mean Corpuscular Volume 83.8 fL (81-99) Mean Corpuscular Hemoglobin 24.8 pg (28-32) Mean Corpuscular Hemoglobin Concent 29.6 g/dL (31-35) Red Cell Distribution Width 15.0 % (11.7-14.4) Platelet Count 399 x10e3/uL (140-360) Neutrophils (%) (Auto) 74.8 % (38.7-80.0) Lymphocytes (%) (Auto) 16.6 % (18.0-39.1) Monocytes (%) (Auto) 5.9 % (4.4-11.3) Eosinophils (%) (Auto) 1.0 % (0.0-6.0) Basophils (%) (Auto) 0.4 % (0.0-1.0) Neutrophils # (Auto) 11.2 (2.1-6.9) Lymphocytes # (Auto) 2.5 (1.0-3.2) Monocytes # (Auto) 0.9 (0.2-0.8) Eosinophils # (Auto) 0.2 (0.0-0.4) Basophils # (Auto) 0.1 (0.0-0.1) Absolute Immature Granulocyte (auto 0.19 x10e3/uL (0-0.1) Urine Color Yellow (YELLOW) Urine Clarity Sl cloudy (CLEAR) Urine pH 7.5 (5 - 7) Urine Specific [place] 1.025 (1.010-1.025) Urine Protein Negative (NEGATIVE) Urine Glucose (UA) Negative (NEGATIVE) Urine Ketones Negative (NEGATIVE) Urine Blood Negative (NEGATIVE) Urine Nitrite Negative (NEGATIVE) Urine Bilirubin Negative (NEGATIVE) Urine Urobilinogen 0.2 mg/dL (0.2 - 1) Urine Leukocyte Esterase Negative (NEGATIVE) Urine RBC None /HPF (0-5) Urine WBC None /HPF (0-5) Urine Epithelial Cells Many /LPF (NONE) Urine Bacteria Moderate /HPF (NONE) Sodium Level 143 mmol/L (136-145) Potassium Level 3.7 mmol/L (3.5-5.1) Chloride Level 94 mmol/L (98-107) Carbon Dioxide Level 36 mmol/L (22-29) Anion Gap 16.7 mmol/L (8-16) Blood Urea Nitrogen 13 mg/dL (7-26) Creatinine 0.88 mg/dL (0.57-1.11) Estimat Glomerular Filtration Rate > 60 ML/MIN (60-) BUN/Creatinine Ratio 15 (6-25) Glucose Level 143 mg/dL (74-118) Calcium Level 9.9 mg/dL (8.4-10.2) Total Bilirubin 0.3 mg/dL (0.2-1.2) Aspartate Amino Transf (AST/SGOT) 18 IU/L (5-34) Alanine Aminotransferase (ALT/SGPT) 20 IU/L (0-55) Alkaline Phosphatase 114 IU/L (40-150) Creatine Kinase 59 IU/L (29-168) Creatine Kinase MB 1.60 ng/mL (0-5.0) Troponin I 0.042 ng/mL (0-0.300) B-Type Natriuretic Peptide 58.9 pg/mL (0-100) Total Protein 7.7 g/dL (6.5-8.1) Albumin 3.6 g/dL (3.5-5.0) Globulin 4.1 g/dL (2.3-3.5) Albumin/Globulin Ratio 0.9 (0.8-2.0) Imaging Imaging results reviewed: Yes Impressions IMPRESSION: Perihilar peribronchial hazy opacity could be due to bronchitis/early viral pneumonia. No focal consolidation. Unchanged patchy opacities of the mid and lower lung zones likely subsegmental atelectasis/scarring. No focal consolidation Signed by: Dr. Blaine Bahena M.D. on 04/29/2020 5:36 PM Procedures 12 Lead ECG Interpretation ECG Interpretation : ECG: ECG 1 Prior ECG tracings: reviewed Rhythm: sinus rhythm Rate: normal QRS axis: left ST segments normal: Yes T waves normal: Yes Clinical Impression: normal ECG Assessment & Plan Medical Decision Making SCOTT 69 yo F arrived to the ED with complaints with complaints of cough, requiring more supplemental oxygen. Patient required hospital admission for pneumonia. Assessment & Plan Final Impression: (1) Pneumonia (2) COPD exacerbation Depart Disposition: HOME, SELF-long-term Meds Reported Medications Furosemide (LASIX) 20 Mg Tablet, 20 MG PO PRN PRN for BID, TAB 02/05/20 Famotidine (FAMOTIDINE) 20 Mg Tab, 20 MG PO Q12HR, #30 TAB 02/05/20 Simvastatin (SIMVASTATIN) 40 Mg Tablet, 40 MG PO 2100, #30 TAB 02/05/20 Hydrochlorothiazide (HYDROCHLOROTHIAZIDE) 25 Mg Tablet, 25 MG PO DAILY, #30 TAB 02/05/20 Losartan Potassium (LOSARTAN POTASSIUM) 100 Mg Tablet, 100 MG PO DAILY, TAB 02/05/20 Metformin Hcl (METFORMIN HCL) 500 Mg Tablet, 500 MG PO DAILY, #60 TAB 02/05/20 Pramipexole Di-Hcl (PRAMIPEXOLE DIHYDROCHLORIDE) 0.25 Mg Tablet, 0.125 MG PO DAILY 02/05/20 Memantine Hcl (NAMENDA) 10 Mg Tablet, 10 MG PO BID, TAB 02/05/20 Buspirone Hcl (BUSPIRONE HCL) 5 Mg Tablet, 5 MG PO DAILY, #60 TAB 02/05/20 Duloxetine Hcl (CYMBALTA) 30 Mg Capsule.dr, 30 MG PO BID, #30 CAP 02/05/20 Budesonide/Formoterol Fumarate (SYMBICORT 80-4.5 MCG INHALER) 10.2 Gm Hfa.aer.ad, 1 EACH INH DAILY, EACH 02/05/20 Alendronate Sodium (ALENDRONATE SODIUM) 70 Mg Tablet, 70 MG PO Q1WEEK 02/05/20 Temazepam (TEMAZEPAM) 15 Mg Capsule, 15 MG PO PRN 01/31/18 Prednisone (PREDNISONE) 10 Mg Tab, 10 MG PO PRN, TAB 01/31/18 Escitalopram Oxalate (LEXAPRO) 10 Mg Tablet, 10 MG PO DAILY, #30 TAB 01/31/18 Clonidine Hcl (CLONIDINE HCL) 0.1 Mg Tablet, 1 TAB PO TID, #60 TAB 01/31/18 Metoprolol Tartrate (METOPROLOL TARTRATE) 25 Mg Tablet, 12.5 MG PO Q12H, TAB 01/31/18 Diltiazem Hcl (DILTIAZEM ER) 180 Mg Cap.er.deg, 180 MG PO HS 06/16/16 Albuterol Sulf* (PROAIR HFA INHALER*) 8.5 Gm Inh, 2 SPR INH QID PRN for SHORTNESS OF BREATH 06/16/16 Fluticasone/Salmeterol (ADVAIR 250-50 DISKUS) 1 Each Disk.w.dev, 1 DOSE INH BID 06/16/16 Acetaminophen/Codeine* (TYLENOL # 3*) 1 Ea Tab, 1 TAB PO BID 06/16/16 Omeprazole (OMEPRAZOLE) 20 Mg Tablet.dr, 20 MG PO DAILY 02/24/14 Sertraline Hcl (SERTRALINE HCL) 50 Mg Tablet, 50 MG PO DAILY 02/24/14 Donepezil Hcl (DONEPEZIL HCL) 5 Mg Tablet, 5 MG PO DAILY 02/24/14 Alprazolam (ALPRAZOLAM) 1 Mg Tablet, 1 MG PO 2-3XD 02/24/14 Trazodone Hcl (TRAZODONE HCL) 100 Mg Tablet, 100 MG PO HS, 0 Refills 09/13/12 SEBASTIÁN SWENSON, DO Apr 29, 2020 16:53
[2020-04-29 17:27] LABS: BASOPHILS # (AUTO) 0.1 (0.0-0.1); BASOPHILS % 0.4 % (0.0-1.0); EOSINOPHILS # (AUTO) 0.2 (0.0-0.4); HEMATOCRIT 37.2 % (34.2-44.1); LYMPHOCYTES # (AUTO) 2.5 (1.0-3.2); LYMPHOCYTES % 16.6 % (18.0-39.1); MEAN CORPUSCULAR HEMOGLOBIN 24.8 pg (28-32); MEAN CORPUSCULAR HGB CONC 29.6 g/dL (31-35); MEAN CORPUSCULAR VOLUME 83.8 fL (81-99); MONOCYTES # (AUTO) 0.9 (0.2-0.8); MONOCYTES % 5.9 % (4.4-11.3); NEUTROPHILS # (AUTO) 11.2 (2.1-6.9); NEUTROPHILS % 74.8 % (38.7-80.0); PLATELET COUNT 399 x10e3/uL (140-360); RED BLOOD COUNT 4.44 x10e6/uL (3.6-5.1)
[2020-04-29 17:30] LABS: CLARITY,URINE SL CLOUDY (CLEAR); COLOR,URINE YELLOW (YELLOW); LEUKOCYTE ESTERASE ,URINE NEGATIVE (NEGATIVE); NITRITE,URINE NEGATIVE (NEGATIVE); PROTEIN,URINE DIPSTICK NEGATIVE (NEGATIVE)
[2020-04-29 17:31] LABS: BILIRUBIN,URINE NEGATIVE (NEGATIVE); KETONES,URINE NEGATIVE (NEGATIVE); URINE UROBILINOGEN 0.2 mg/dL (0.2 - 1)
--- NOTE | 2020-04-29 17:39 | Diagnostic Imaging Report ---
EXAMINATION: CHEST SINGLE (PORTABLE) INDICATION: Shortness of breath. Chest pain ^Y ^COVID ^[id number] ^[id number] COMPARISON: 02/09/2020 FINDINGS: TUBES and LINES: None. LUNGS: Perihilar peribronchial hazy opacity could be due to bronchitis/early viral pneumonia. Unchanged patchy opacities of the mid and lower lung zones likely subsegmental atelectasis/scarring. No focal consolidation PLEURA: No pleural effusion or pneumothorax. HEART AND MEDIASTINUM: Likely calcified mediastinal lymph nodes. The cardiomediastinal silhouette is otherwise unremarkable. BONES AND SOFT TISSUES: No acute osseous lesion. Soft tissues are unremarkable. UPPER ABDOMEN: No free air under the diaphragm. IMPRESSION: Perihilar peribronchial hazy opacity could be due to bronchitis/early viral pneumonia. No focal consolidation. Unchanged patchy opacities of the mid and lower lung zones likely subsegmental atelectasis/scarring. No focal consolidation Signed by: Dr. Blaine Bahena M.D. on 04/29/2020 5:36 PM
[2020-04-29 17:40] LABS: BACTERIA,URINE MODERATE /HPF
[2020-04-29 17:41] LABS: EPITHELIAL CELLS,URINE MANY /LPF
[2020-04-29 17:45] LABS: ALANINE AMINOTRANSFERASE 20 IU/L (0-55); ALBUMIN 3.6 g/dL (3.5-5.0); ALBUMIN/GLOBULIN RATIO 0.9 (0.8-2.0); ALKALINE PHOSPHATASE 114 IU/L (40-150); ANION GAP 16.7 mmol/L (8-16); BLOOD UREA NITROGEN 13 mg/dL (7-26); BUN/CREATININE RATIO 15 (6-25); CARBON DIOXIDE 36 mmol/L (22-29); CHLORIDE 94 mmol/L (98-107); CREATINE KINASE 59 IU/L (29-168); CREATININE, SERUM 0.88 mg/dL (0.57-1.11); EST GLOMERULAR FILTRATION RATE > 60 ML/MIN (60-); GLUCOSE 143 mg/dL (74-118); POTASSIUM 3.7 mmol/L (3.5-5.1); SODIUM 143 mmol/L (136-145)
[2020-04-29 17:50] LABS: CALCIUM 9.9 mg/dL (8.4-10.2)
[2020-04-29] MEDS ORDERED: AZITHROMYCIN 500MG/NS 250 ML 250 ML IV STA (19:28)
[2020-04-29] MEDS ORDERED: TRAZODONE HCL50 MG PO (20:39)
[2020-04-29] MEDS ORDERED: LEVEMIR FL100 UNIT/1 SQ (20:39)
[2020-04-29] MEDS ORDERED: PREDNISONE2.5 MG PO (20:39)
[2020-04-29] MEDS ORDERED: THEOPHYLLINE400 M1 PO (20:39)
[2020-04-29] MEDS: CEFTRIAXONE SOD 1 GM/NS 50 ML 50 ML IV SCH ×2 (22:45→23:49)
[2020-04-29] MEDS ORDERED: AZITHROMYCIN 500MG/NS 250 ML 250 ML ONE (23:03)
[2020-04-30 05:38] LABS: BASOPHILS # (AUTO) 0.1 (0.0-0.1); BASOPHILS % 0.3 % (0.0-1.0); EOSINOPHILS # (AUTO) 0.2 (0.0-0.4); EOSINOPHILS % 1.4 % (0.0-6.0); HEMATOCRIT 30.9 % (34.2-44.1); HEMOGLOBIN 9.5 g/dL (12.0-16.0); LYMPHOCYTES # (AUTO) 3.5 (1.0-3.2); LYMPHOCYTES % 23.2 % (18.0-39.1); MEAN CORPUSCULAR HEMOGLOBIN 26.2 pg (28-32); MEAN CORPUSCULAR HGB CONC 30.7 g/dL (31-35); MEAN CORPUSCULAR VOLUME 85.4 fL (81-99); MONOCYTES # (AUTO) 0.9 (0.2-0.8); MONOCYTES % 6.2 % (4.4-11.3); NEUTROPHILS # (AUTO) 10.4 (2.1-6.9); PLATELET COUNT 327 x10e3/uL (140-360); RED BLOOD COUNT 3.62 x10e6/uL (3.6-5.1); RED CELL DISTRIBUTION WIDTH 15.1 % (11.7-14.4)
[2020-04-30 06:00] LABS: ANION GAP 13.5 mmol/L (8-16); BLOOD UREA NITROGEN 14 mg/dL (7-26); BUN/CREATININE RATIO 18 (6-25); CALCIUM 8.9 mg/dL (8.4-10.2); CARBON DIOXIDE 35 mmol/L (22-29); CHLORIDE 95 mmol/L (98-107); CREATININE, SERUM 0.79 mg/dL (0.57-1.11); EST GLOMERULAR FILTRATION RATE > 60 ML/MIN (60-); GLUCOSE 125 mg/dL (74-118); POTASSIUM 3.5 mmol/L (3.5-5.1); SODIUM 140 mmol/L (136-145)
--- NOTE | 2020-04-30 07:02 | NUR ---
Report received from XIOMARA Soriano
[2020-04-30] MEDS ORDERED: FUROSEMIDE 20 MG TAB PO PRN (11:15)
[2020-04-30] MEDS ORDERED: ALBUTEROL SULFATE HFA 8GM INHALATION AEROSOL INH PRN (11:15)
[2020-04-30] MEDS ORDERED: ALPRAZOLAM 1 MG TAB PO PRN (11:15)
[2020-04-30] MEDS ORDERED: PREDNISONE 10 MG TAB PO SCH (11:15)
[2020-04-30] MEDS ORDERED: DEXTROSE 50% SYRINGE 50 ML IV PRN (11:15)
[2020-04-30] MEDS ORDERED: FUROSEMIDE INJ 10 MG/ML 4 ML VIAL IV NR (11:30)
[2020-04-30] MEDS: INSULIN REGULAR, HUMAN 100 UNIT/1 ML 3ML VIAL SQ SCH ×3 (11:47→21:42)
[2020-04-30] MEDS: METOPROLOL TARTRATE 25 MG TAB PO SCH ×2 (11:47→23:35)
[2020-04-30] MEDS: DILTIAZEM HCL 180 MG CAP ER PO SCH (12:15)
[2020-04-30] MEDS: CLONIDINE HCL 0.1 MG TAB PO SCH ×2 (12:39→21:39)
[2020-04-30] MEDS: ACETAMINOPHEN/CODEINE 300MG - 30MG TAB PO SCH (12:50)
[2020-04-30 12:55] VITALS: BP 153/78
[2020-04-30] MEDS: DULOXETINE HCL 30 MG DELAYED RELEASE PO SCH (16:22)
[2020-04-30] MEDS: MEMANTINE 10 MG TAB PO SCH (16:22)
[2020-04-30 17:11] VITALS: BP 128/66
[2020-04-30] MEDS: SALMETEROL/FLUTICASONE 250/50 INH SCH (19:00)
[2020-04-30 19:45] VITALS: BP 120/78
[2020-04-30 20:00] VITALS: BP 120/56
[2020-04-30 21:00] VITALS: BP 124/82
[2020-04-30] MEDS ORDERED: TEMAZEPAM 15 MG CAP PO PRN (21:00)
[2020-04-30] MEDS: TRAZODONE HCL 50 MG TAB PO SCH (21:39)
[2020-04-30] MEDS: CEFTRIAXONE SOD 1 GM/NS 50 ML 50 ML IV SCH (21:39)
[2020-04-30] MEDS: FAMOTIDINE 20 MG TAB PO SCH (21:40)
[2020-04-30] MEDS: SIMVASTATIN 40 MG TAB PO SCH (21:40)
[2020-04-30] MEDS: INSULIN GLARGINE 100 UNITS/ML VIAL SQ SCH (21:41)
[2020-05-01] VITALS (8 sets, daily range): BP systolic 103–131; BP diastolic 57–71
--- NOTE | 2020-05-01 07:00 | NUR ---
RECEIVED BEDSIDE SHIFT REPORT FROM OFF GOING NIGHT NURSE. PATIENT IN STABLE CONDITION, NO S/S OF DISTRESS NOTED. TELEMETRY APPLIED. iV SITES ASYMPTOMATIC AND PATIENT, TRANSPARENT DRESSING C/D/I. BED IN LOWEST POSITION AND LOCKED. CALL LIGHT WITHIN REACH.
--- NOTE | 2020-05-01 07:10 | NUR ---
Patient endorsed to next shift for continuity of care.
[2020-05-01] MEDS: INSULIN REGULAR, HUMAN 100 UNIT/1 ML 3ML VIAL SQ SCH ×4 (07:30→21:06)
[2020-05-01] MEDS: BUDESONIDE/FORMOTEROL FUMARATE 80/4.5MCG 6.9 GM INH AEROSOL IH SCH (07:40)
[2020-05-01] MEDS: SALMETEROL/FLUTICASONE 250/50 INH SCH (07:40)
[2020-05-01] MEDS ORDERED: NON-FORMULARY MEDICATION (Theophylline Anhydrous (Theophylline) 400 MG) PO SCH (09:00)
[2020-05-01] MEDS ORDERED: PREDNISONE 2.5 MG PO SCH (09:00)
[2020-05-01] MEDS: BUSPIRONE HCL 5 MG TAB PO SCH (09:26)
[2020-05-01] MEDS: DONEPEZIL HCL 5 MG TAB PO SCH (09:26)
[2020-05-01] MEDS: LOSARTAN POTASSIUM 100 MG TAB PO SCH (09:27)
[2020-05-01] MEDS: CLONIDINE HCL 0.1 MG TAB PO SCH ×3 (09:27→21:04)
[2020-05-01] MEDS: METFORMIN HCL 500 MG TAB PO SCH (09:28)
[2020-05-01] MEDS: HYDROCHLOROTHIAZIDE 25 MG TAB PO SCH (09:28)
[2020-05-01] MEDS: DULOXETINE HCL 30 MG DELAYED RELEASE PO SCH ×2 (09:28→17:19)
[2020-05-01] MEDS: ESCITALOPRAM OXALATE 10 MG TAB PO SCH (09:29)
[2020-05-01] MEDS: MEMANTINE 10 MG TAB PO SCH ×2 (09:30→17:19)
[2020-05-01] MEDS: PREDNISONE 5 MG TAB PO SCH (09:30)
[2020-05-01] MEDS: PANTOPRAZOLE SOD 40 MG TABEC PO SCH (09:30)
[2020-05-01] MEDS: FAMOTIDINE 20 MG TAB PO SCH ×2 (09:30→21:04)
[2020-05-01] MEDS: PRAMIPEXOLE DIHYDROCHLORIDE 0.25 MG TAB PO SCH (09:30)
[2020-05-01] MEDS: ACETAMINOPHEN/CODEINE 300MG - 30MG TAB PO SCH ×2 (09:31→17:25)
[2020-05-01] MEDS: SERTRALINE HCL 50 MG TAB PO SCH (09:31)
[2020-05-01] MEDS: THEOPHYLLINE 200 MG TABCR PO SCH (09:31)
[2020-05-01] MEDS: INSULIN GLARGINE 100 UNITS/ML VIAL SQ SCH ×2 (11:42→21:06)
[2020-05-01] MEDS: METOPROLOL TARTRATE 25 MG TAB PO SCH ×2 (12:04→23:15)
--- NOTE | 2020-05-01 19:03 | NUR ---
COMPLETED BEDSIDE SHIFT REPORT AND ROUNDING WITH ONCOMING NIGHT NURSE. PATIENT IN STABLE CONDITION, NO S/S OF DISTRESS NOTED. TELEMETRY APPLIED. IV SITES ASYMPTOMATIC AND PATIENT, TRANSPARENT DRESSING C/D/I. BED IN LOWEST POSITION AND LOCKED. CALL LIGHT WITHIN REACH.
[2020-05-01] MEDS: CEFTRIAXONE SOD 1 GM/NS 50 ML 50 ML IV SCH (21:02)
[2020-05-01] MEDS: TRAZODONE HCL 50 MG TAB PO SCH (21:02)
[2020-05-01] MEDS: DILTIAZEM HCL 180 MG CAP ER PO SCH (21:03)
[2020-05-01] MEDS: SIMVASTATIN 40 MG TAB PO SCH (21:19)
[2020-05-02] VITALS (8 sets, daily range): BP systolic 98–123; BP diastolic 56–68
[2020-05-02] MEDS: ACETAMINOPHEN/CODEINE 300MG - 30MG TAB PO SCH (06:00)
--- NOTE | 2020-05-02 06:48 | NUR ---
Patient endorsed to next shift for continuity of care.
[2020-05-02] MEDS: INSULIN REGULAR, HUMAN 100 UNIT/1 ML 3ML VIAL SQ SCH ×4 (07:30→21:00)
[2020-05-02] MEDS: BUDESONIDE/FORMOTEROL FUMARATE 80/4.5MCG 6.9 GM INH AEROSOL IH SCH (07:42)
[2020-05-02] MEDS: SALMETEROL/FLUTICASONE 250/50 INH SCH ×2 (07:42→19:25)
[2020-05-02] MEDS: DONEPEZIL HCL 5 MG TAB PO SCH (08:32)
[2020-05-02] MEDS: BUSPIRONE HCL 5 MG TAB PO SCH (08:32)
[2020-05-02] MEDS: CLONIDINE HCL 0.1 MG TAB PO SCH ×3 (08:32→21:00)
[2020-05-02] MEDS: DULOXETINE HCL 30 MG DELAYED RELEASE PO SCH ×2 (08:33→16:36)
[2020-05-02] MEDS: HYDROCHLOROTHIAZIDE 25 MG TAB PO SCH (08:33)
[2020-05-02] MEDS: LOSARTAN POTASSIUM 100 MG TAB PO SCH (08:33)
[2020-05-02] MEDS: METFORMIN HCL 500 MG TAB PO SCH (08:34)
[2020-05-02] MEDS: PRAMIPEXOLE DIHYDROCHLORIDE 0.25 MG TAB PO SCH (08:34)
[2020-05-02] MEDS: ESCITALOPRAM OXALATE 10 MG TAB PO SCH (08:34)
[2020-05-02] MEDS: MEMANTINE 10 MG TAB PO SCH ×2 (08:35→16:36)
[2020-05-02] MEDS: PREDNISONE 5 MG TAB PO SCH (08:35)
[2020-05-02] MEDS: FAMOTIDINE 20 MG TAB PO SCH ×2 (08:35→21:56)
[2020-05-02] MEDS: PANTOPRAZOLE SOD 40 MG TABEC PO SCH (08:35)
[2020-05-02] MEDS: THEOPHYLLINE 200 MG TABCR PO SCH (08:36)
[2020-05-02] MEDS: SERTRALINE HCL 50 MG TAB PO SCH (08:36)
[2020-05-02] MEDS: INSULIN GLARGINE 100 UNITS/ML VIAL SQ SCH ×2 (09:00→21:00)
[2020-05-02] MEDS: METOPROLOL TARTRATE 25 MG TAB PO SCH ×2 (11:15→23:15)
[2020-05-02] MEDS: HYDROCODONE/APAP 5MG-325MG TAB PO PRN ×2 (16:29→23:00)
--- NOTE | 2020-05-02 16:59 | Diagnostic Imaging Report ---
EXAMINATION: CHEST 2 VIEWS INDICATION: Shortness of breath. COMPARISON: Chest radiograph 04-29-2020. FINDINGS: TUBES and LINES: None. LUNGS: Low lung volumes. Bilateral linear opacities. Mild patchy bibasilar opacities. No evidence of lobar consolidation or pulmonary edema. PLEURA: No pleural effusion or pneumothorax. HEART AND MEDIASTINUM: The cardiomediastinal silhouette is unremarkable. Unchanged calcified mediastinal/hilar lymph nodes. BONES AND SOFT TISSUES: No acute osseous abnormality. Partially seen cervical spine fixation hardware. Upper thoracic spine vertebral augmentation. UPPER ABDOMEN: No free air under the diaphragm. IMPRESSION: Bilateral linear and patchy opacities may represent atelectasis or infection in the appropriate clinical setting. Signed by: Dr. Maira Lopez MD on 05/02/2020 4:55 PM
--- NOTE | 2020-05-02 19:18 | NUR ---
COMPLETED BEDSIDE SHIFT REPORT AND ROUNDING WITH ONCOMING NIGHT NURSE. PATIENT IN STABLE CONDITION, NO S/S OF DISTRESS NOTED. IV SITES ASYMPTOMATIC AND PATIENT, TRANSPARENT DRESSING C/D/I. BED IN LOWEST POSITION AND LOCKED. CALL LIGHT WITHIN REACH.
--- NOTE | 2020-05-02 19:52 | NUR ---
RECEIVED PT IN BED AOX3. , NO S/S OF DISTRESS DENIES PAIN . CALL LIGHT WITH IN REACH CONTINUE TO MONITOR . CALL LIGHT WITHIN REACH.
[2020-05-02] MEDS: TRAZODONE HCL 50 MG TAB PO SCH (21:56)
[2020-05-02] MEDS: DILTIAZEM HCL 180 MG CAP ER PO SCH (21:56)
[2020-05-02] MEDS: SIMVASTATIN 40 MG TAB PO SCH (21:56)
[2020-05-02] MEDS: CEFTRIAXONE SOD 1 GM/NS 50 ML 50 ML IV SCH (22:06)
--- NOTE | 2020-05-02 23:01 | Consultation ---
DATE OF CONSULTATION: Pulmonary Consultation REASON FOR CONSULT: COPD. HISTORY OF PRESENT ILLNESS: Ms. Reyna is a 69-year-old female, well-known to our service. She came in on the , with shortness of breath, was admitted under Dr. Ceballos's service. The patient was seen by me on February 04, 2020, with similar complaint of shortness of breath. The patient is on Bevespi and theophylline . She presented to the emergency room with shortness of breath. Her COVID testing has been negative and this one is still pending. Her last PFT and echo shows the FEV1 is 65.3% with a ratio of 99. She is denying any complaints of nausea or vomiting. She still has shortness of breath. REVIEW OF SYSTEMS: GENERAL: Denies any fever or chills. HEAD: Denies any head trauma. ENT: Denies any earache. CVS: Denies any chest pain. RESPIRATORY: Shortness of breath. The rest of the review of systems are negative except as in HPI. PAST MEDICAL HISTORY: COPD. FAMILY AND SOCIAL HISTORY: She quit smoking 5 years ago, smoked for 35 plus years. She is . PHYSICAL EXAMINATION: VITAL SIGNS: Temperature 98.2, pulse of 74, blood pressure 118/57, respiratory rate of 18, O2 saturation 100% on 3 L. HEENT: Head is atraumatic and normocephalic. NECK: Supple. CHEST: Decreased air entry bilaterally. HEART: S1, S2 audible. ABDOMEN: Soft. EXTREMITIES: No pedal edema. NEUROLOGIC: Awake and alert. LABORATORY DATA: White count of 15,000, hemoglobin 9.5, platelets is 327. Chemistry is within normal limits. Chest x-ray reviewed, bilateral opacities, possibly atelectasis. ASSESSMENT/PLAN: Ms. Reyna is a 69-year-old female with chronic obstructive pulmonary disease exacerbation, unlikely there is pneumonia. [place] [address]. She is on Advair, theophylline, and prednisone. I will continue the Rocephin for now. She is getting albuterol inhaler p.r.n. I will change the albuterol to scheduled. She still has occasional wheezing. Thank you for this consult. MD MARE Robertson/WANDAL /[id number]
[2020-05-03 00:26] VITALS: BP 102/61
[2020-05-03] MEDS ORDERED: ALBUTEROL/IPRATROPIUM 3 ML NEB NEB SCH (01:00)
[2020-05-03 04:00] VITALS: BP 129/63
[2020-05-03 05:37] LABS: BASOPHILS # (AUTO) 0.1 (0.0-0.1); BASOPHILS % 0.3 % (0.0-1.0); EOSINOPHILS # (AUTO) 0.2 (0.0-0.4); HEMATOCRIT 33.4 % (34.2-44.1); HEMOGLOBIN 10.2 g/dL (12.0-16.0); LYMPHOCYTES # (AUTO) 3.6 (1.0-3.2); LYMPHOCYTES % 22.8 % (18.0-39.1); MEAN CORPUSCULAR HEMOGLOBIN 25.2 pg (28-32); MEAN CORPUSCULAR HGB CONC 30.5 g/dL (31-35); MEAN CORPUSCULAR VOLUME 82.7 fL (81-99); MONOCYTES # (AUTO) 0.9 (0.2-0.8); MONOCYTES % 5.8 % (4.4-11.3); NEUTROPHILS # (AUTO) 10.8 (2.1-6.9); NEUTROPHILS % 69.3 % (38.7-80.0); PLATELET COUNT 327 x10e3/uL (140-360); RED BLOOD COUNT 4.04 x10e6/uL (3.6-5.1); RED CELL DISTRIBUTION WIDTH 15.5 % (11.7-14.4)
--- NOTE | 2020-05-03 06:59 | Diagnostic Imaging Report ---
EXAMINATION: CHEST SINGLE (PORTABLE) INDICATION: COPD exacerbation. COMPARISON: Chest radiograph 05-02-2020. FINDINGS: TUBES and LINES: None. LUNGS: Low lung volumes. Redemonstration of left basilar platelike atelectasis. Mild right basilar patchy density may also represent atelectasis, stable. PLEURA: No pleural effusion or pneumothorax. HEART AND MEDIASTINUM: The cardiomediastinal silhouette is unremarkable. BONES AND SOFT TISSUES: No acute osseous abnormality. Partially seen cervical spine fixation hardware. Upper thoracic spine vertebral augmentation. UPPER ABDOMEN: No free air under the diaphragm. IMPRESSION: No interval change. Bibasilar atelectasis, left greater than right. Signed by: Dr. Eric Coyne M.D. on 05/03/2020 6:56 AM
[2020-05-03] MEDS: BUDESONIDE/FORMOTEROL FUMARATE 80/4.5MCG 6.9 GM INH AEROSOL IH SCH (07:06)
[2020-05-03] MEDS: SALMETEROL/FLUTICASONE 250/50 INH SCH (07:07)
--- NOTE | 2020-05-03 07:10 | NUR ---
PATIENT IS AWAKE, ALERT, AND IN STABLE CONDITION WITH NO S/S OF RESPIRATORY DISTRESS. PATIENT C/O GENERALIZE PAIN 03/18. CALL LIGHT IS WITHIN REACH, PATIENT INSTRUCTED TO CALL FOR ASSISTANCE NEEDED.
[2020-05-03] MEDS: INSULIN REGULAR, HUMAN 100 UNIT/1 ML 3ML VIAL SQ SCH ×2 (07:30→12:19)
--- NOTE | 2020-05-03 07:43 | NUR ---
PT C/O PAIN AND GIVEN ORDERED PAIN MEDICATION,BEDSIDE REPORT GIVEN TO THE ONCOMING NURSE
[2020-05-03] MEDS: HYDROCODONE/APAP 5MG-325MG TAB PO PRN (08:33)
[2020-05-03 08:36] VITALS: BP 120/65
[2020-05-03] MEDS: PANTOPRAZOLE SOD 40 MG TABEC PO SCH (08:37)
[2020-05-03] MEDS: SERTRALINE HCL 50 MG TAB PO SCH (08:37)
[2020-05-03] MEDS: THEOPHYLLINE 200 MG TABCR PO SCH (08:37)
[2020-05-03] MEDS: PRAMIPEXOLE DIHYDROCHLORIDE 0.25 MG TAB PO SCH (08:38)
[2020-05-03] MEDS: METFORMIN HCL 500 MG TAB PO SCH (08:38)
[2020-05-03] MEDS: PREDNISONE 5 MG TAB PO SCH (08:38)
[2020-05-03] MEDS: ESCITALOPRAM OXALATE 10 MG TAB PO SCH (08:38)
[2020-05-03] MEDS: BUSPIRONE HCL 5 MG TAB PO SCH (08:38)
[2020-05-03] MEDS: LOSARTAN POTASSIUM 100 MG TAB PO SCH (08:38)
[2020-05-03] MEDS: CLONIDINE HCL 0.1 MG TAB PO SCH (08:38)
[2020-05-03] MEDS: DULOXETINE HCL 30 MG DELAYED RELEASE PO SCH (08:38)
[2020-05-03] MEDS: MEMANTINE 10 MG TAB PO SCH (08:38)
[2020-05-03] MEDS: FAMOTIDINE 20 MG TAB PO SCH (08:38)
[2020-05-03] MEDS: HYDROCHLOROTHIAZIDE 25 MG TAB PO SCH (08:38)
[2020-05-03] MEDS: DONEPEZIL HCL 5 MG TAB PO SCH (08:38)
[2020-05-03] MEDS: INSULIN GLARGINE 100 UNITS/ML VIAL SQ SCH (08:39)
[2020-05-03 10:17] VITALS: BP 120/65
[2020-05-03] MEDS: METOPROLOL TARTRATE 25 MG TAB PO SCH (12:19)
--- NOTE | 2020-05-03 12:35 | NUR ---
PATIENT DISCHARGE HOME- PATIENT OFF THE UNIT AT 1235 PER WHEELCHAIR AND ACCOMPANIED BY PCT TO THE FRONT LOBBY/PERSONAL VEHICLE. PATIENT IN STABLE CONDITION WITH NO S/S OF RESPIRATORY DISTRESS. NO PAIN VOICED. IV REMOVED WITH TIP INTACT AT 1000. 02 APPLIED WITH PATIENT'S PERSONAL TRANSPORTABLE OXYGEN. DISCHARGE TEACHING AND INSTRUCTIONS GIVEN TO THE PATIENT. ALL PERSONAL ITEMS TAKEN WITH THE PATIENT.
== END 2020-05-03 12:36 | disposition home or self-care (01) | DRG 192 ==
LOC: ER 16:50 → ERHOLD 19:25 → MED/SURG3 04-30 12:00
DX: J44.0 Chronic obstructive pulmonary disease with (acute) lower respiratory infection (principal); J44.1 Chronic obstructive pulmonary disease with (acute) exacerbation; E11.9 Type 2 diabetes mellitus without complications; G89.29 Other chronic pain; I10 Essential (primary) hypertension; G30.0 Alzheimer's disease with early onset; F02.80 Dementia in other diseases classified elsewhere, unspecified severity, without behavioral disturbance, psychotic disturbance, mood disturbance, and anxiety; F32.9 Major depressive disorder, single episode, unspecified; Z11.59 Encounter for screening for other viral diseases; Z87.891 Personal history of nicotine dependence
CPT/HCPCS: 36415; 71045; 71046; 80048; 80053; 81001; 82550; 82553; 82948; 83880; 84484; 85025; 87493; 93005; 94664; 99285; J0456; J0696; J1815; J1817; J7512; U0002

== ENCOUNTER 2020-12-30 12:57 | Inpatient (IN) | payer MEDICARE, OTHER ==
[~2020-12-30] VITALS: Ht 154.9 cm; Wt 83.9 kg
[~2020-12-30 12:57] MED LIST changes: +LEVEMIR FL100 UNIT/1 SQ; +PREDNISONE2.5 MG PO; +THEOPHYLLINE400 M1 PO; +TRAZODONE HCL50 MG PO
[2020-12-30 13:26] LABS: BASOPHILS # (AUTO) 0.1 (0.0-0.1); BASOPHILS % 0.4 % (0.0-1.0); EOSINOPHILS # (AUTO) 0.3 (0.0-0.4); EOSINOPHILS % 2.3 % (0.0-6.0); HEMATOCRIT 35.7 % (34.2-44.1); HEMOGLOBIN 11.1 g/dL (12.0-16.0); LYMPHOCYTES # (AUTO) 2.2 (1.0-3.2); LYMPHOCYTES % 15.4 % (18.0-39.1); MEAN CORPUSCULAR HEMOGLOBIN 25.5 pg (28-32); MEAN CORPUSCULAR HGB CONC 31.1 g/dL (31-35); MEAN CORPUSCULAR VOLUME 81.9 fL (81-99); MONOCYTES # (AUTO) 1.1 (0.2-0.8); MONOCYTES % 7.6 % (4.4-11.3); NEUTROPHILS # (AUTO) 10.4 (2.1-6.9); NEUTROPHILS % 73.7 % (38.7-80.0); PLATELET COUNT 359 x10e3/uL (140-360); RED BLOOD COUNT 4.36 x10e6/uL (3.6-5.1); RED CELL DISTRIBUTION WIDTH 14.3 % (11.7-14.4)
[2020-12-30 13:43] LABS: ALBUMIN 3.9 g/dL (3.5-5.0); ALBUMIN/GLOBULIN RATIO 1.1 (0.8-2.0); ANION GAP 15.3 mmol/L (8-16); CREATININE, SERUM 1.19 mg/dL (0.57-1.11); POTASSIUM 3.3 mmol/L (3.5-5.1)
[2020-12-30] MEDS ORDERED: MORPHINE SULFATE INJ 2 MG/ML SYR IV PRN (16:00)
[2020-12-30] MEDS ORDERED: ONDANSETRON HCL INJ 2MG/ML 2ML 2 MG/ML VIAL IV PRN (16:00)
[2020-12-30] MEDS ORDERED: FENTANYL CITRATE/PF 100MCG/2 ML INJ IV ONE (16:00)
[2020-12-30 16:12] LABS: CLARITY,URINE SL CLOUDY (CLEAR); COLOR,URINE STRAW (YELLOW); KETONES,URINE NEGATIVE (NEGATIVE); LEUKOCYTE ESTERASE ,URINE NEGATIVE (NEGATIVE); NITRITE,URINE NEGATIVE (NEGATIVE); PROTEIN,URINE DIPSTICK NEGATIVE (NEGATIVE); URINE UROBILINOGEN 0.2 mg/dL (0.2 - 1)
[2020-12-30] MEDS ORDERED: MORPHINE SULFATE INJ 4 MG/ML INJ 1ML IV PRN (16:15)
[2020-12-30 16:24] LABS: BACTERIA,URINE RARE /HPF; EPITHELIAL CELLS,URINE FEW /LPF
[2020-12-30] MEDS ORDERED: BENADRYL25 M1 PO (17:19)
[2020-12-30] MEDS ORDERED: CELEBREX100 MG PO (17:27)
[2020-12-30] MEDS ORDERED: CYMBALTA60 MG PO (17:27)
[2020-12-30] MEDS ORDERED: OXYCODONE-ACET1 EAC3 PO (17:27)
[2020-12-30] MEDS ORDERED: ATIVAN0.5 MG PO (17:27)
[2020-12-30] MEDS ORDERED: VALTREX1000 MG PO (17:27)
[2020-12-30 17:56] VITALS: BP 154/71
[2020-12-30 18:03] VITALS: BP 154/71
[2020-12-30] MEDS ORDERED: VALACYCLOVIR HCL 500 MG TAB PO PRN (18:30)
[2020-12-30] MEDS ORDERED: ALBUTEROL SULFATE HFA 8GM INHALATION AEROSOL INH PRN (18:30)
[2020-12-30] MEDS ORDERED: DIPHENHYDRAMINE HCL 25 MG CAP PO PRN (18:30)
[2020-12-30] MEDS: LORAZEPAM 0.5 MG TAB PO PRN (18:45)
[2020-12-30] MEDS: OXYCODONE/ACETAMINOPHEN 5-325 1 EACH TABLET PO PRN (18:46)
[2020-12-30 20:02] VITALS: BP 128/62
[2020-12-30 20:25] VITALS: BP 128/62
[2020-12-30] MEDS: PRAMIPEXOLE DIHYDROCHLORIDE 0.25 MG TAB PO SCH (20:25)
[2020-12-30] MEDS: SIMVASTATIN 40 MG TAB PO SCH (20:25)
[2020-12-30] MEDS: DILTIAZEM HCL 180 MG CAP ER PO SCH (20:25)
[2020-12-30] MEDS: INSULIN GLARGINE 100 UNITS/ML VIAL SQ SCH (20:25)
[2020-12-30] MEDS: METOPROLOL TARTRATE 25 MG TAB PO SCH (20:30)
[2020-12-31] VITALS (12 sets, daily range): BP systolic 114–143; BP diastolic 52–71
[2020-12-31] MEDS: OXYCODONE/ACETAMINOPHEN 5-325 1 EACH TABLET PO PRN ×3 (00:58→15:35)
[2020-12-31] MEDS: LORAZEPAM 0.5 MG TAB PO PRN ×2 (01:00→20:15)
[2020-12-31 04:46] LABS: BASOPHILS % 0.4 % (0.0-1.0); EOSINOPHILS # (AUTO) 0.4 (0.0-0.4); EOSINOPHILS % 3.9 % (0.0-6.0); HEMATOCRIT 33.2 % (34.2-44.1); HEMOGLOBIN 10.2 g/dL (12.0-16.0); LYMPHOCYTES # (AUTO) 2.7 (1.0-3.2); LYMPHOCYTES % 27.6 % (18.0-39.1); MEAN CORPUSCULAR HEMOGLOBIN 25.3 pg (28-32); MEAN CORPUSCULAR HGB CONC 30.7 g/dL (31-35); MEAN CORPUSCULAR VOLUME 82.4 fL (81-99); MONOCYTES # (AUTO) 0.8 (0.2-0.8); MONOCYTES % 7.9 % (4.4-11.3); NEUTROPHILS # (AUTO) 5.8 (2.1-6.9); NEUTROPHILS % 59.7 % (38.7-80.0); PLATELET COUNT 314 x10e3/uL (140-360); RED BLOOD COUNT 4.03 x10e6/uL (3.6-5.1); RED CELL DISTRIBUTION WIDTH 14.6 % (11.7-14.4)
[2020-12-31 05:11] LABS: ANION GAP 13.4 mmol/L (8-16); BLOOD UREA NITROGEN 19 mg/dL (7-26); BUN/CREATININE RATIO 24 (6-25); CALCIUM 8.7 mg/dL (8.4-10.2); CARBON DIOXIDE 35 mmol/L (22-29); CHLORIDE 98 mmol/L (98-107); CREATININE, SERUM 0.79 mg/dL (0.57-1.11); EST GLOMERULAR FILTRATION RATE > 60 ML/MIN (60-); GLUCOSE 155 mg/dL (74-118); POTASSIUM 3.4 mmol/L (3.5-5.1); SODIUM 143 mmol/L (136-145)
[2020-12-31] MEDS: SALMETEROL/FLUTICASONE 250/50 INH SCH ×2 (07:00→19:26)
[2020-12-31] MEDS: CELECOXIB 100 MG CAP PO SCH (08:21)
[2020-12-31] MEDS: DONEPEZIL HCL 5 MG TAB PO SCH (08:21)
[2020-12-31] MEDS: PANTOPRAZOLE SOD 40 MG TABEC PO SCH (08:22)
[2020-12-31] MEDS: MEMANTINE 10 MG TAB PO SCH ×2 (08:22→16:19)
[2020-12-31] MEDS: DULOXETINE HCL 30 MG DELAYED RELEASE PO SCH ×2 (08:22→16:19)
[2020-12-31] MEDS: METOPROLOL TARTRATE 25 MG TAB PO SCH (08:23)
[2020-12-31] MEDS: HYDROCHLOROTHIAZIDE 25 MG TAB PO SCH (08:23)
[2020-12-31] MEDS ORDERED: LOSARTAN POTASSIUM 100 MG TAB PO SCH (09:00)
[2020-12-31 09:24] LABS: CHOL/HDL RATIO 3.2 (3.0-3.6)
[2020-12-31] MEDS: THEOPHYLLINE 200 MG TABCR PO SCH (09:34)
[2020-12-31 09:44] LABS: THYROID STIMULATING HORMONE 0.713 uIU/mL (0.350-4.940)
[2020-12-31] MEDS: INSULIN GLARGINE 100 UNITS/ML VIAL SQ SCH ×2 (10:01→20:15)
[2020-12-31 10:44] LABS: % IRON SATURATION 11 % (15-50); IRON 35 ug/dL (50-170); TOTAL IRON BINDING CAPACITY 308 ug/dL (261-478); TRANSFERRIN 220 mg/dL (180-382)
[2020-12-31 15:26] LABS: ABG HCO3 39 mmol/L (22-26); ABG PCO2 57 mmHg (35-45); ABG PH 7.45 (7.35-7.45); ABG PO2 88 mmHg (80-105); ABG TCO2 40
[2020-12-31] MEDS: SIMVASTATIN 40 MG TAB PO SCH (20:13)
[2020-12-31] MEDS: PRAMIPEXOLE DIHYDROCHLORIDE 0.25 MG TAB PO SCH (20:13)
[2020-12-31] MEDS: DILTIAZEM HCL 180 MG CAP ER PO SCH (20:13)
[2021-01-01] MEDS: OXYCODONE/ACETAMINOPHEN 5-325 1 EACH TABLET PO PRN ×2 (00:15→06:23)
[2021-01-01 00:18] VITALS: BP 145/61
[2021-01-01 04:59] VITALS: BP 130/65
[2021-01-01] MEDS: SALMETEROL/FLUTICASONE 250/50 INH SCH (06:23)
[2021-01-01] MEDS: THEOPHYLLINE 200 MG TABCR PO SCH (08:37)
[2021-01-01] MEDS: DONEPEZIL HCL 5 MG TAB PO SCH (08:37)
[2021-01-01] MEDS: HYDROCHLOROTHIAZIDE 25 MG TAB PO SCH (08:37)
[2021-01-01] MEDS: MEMANTINE 10 MG TAB PO SCH ×2 (08:37→16:06)
[2021-01-01] MEDS: DULOXETINE HCL 30 MG DELAYED RELEASE PO SCH ×2 (08:37→16:06)
[2021-01-01] MEDS: PANTOPRAZOLE SOD 40 MG TABEC PO SCH (08:37)
[2021-01-01] MEDS: CELECOXIB 100 MG CAP PO SCH (08:37)
[2021-01-01] MEDS: INSULIN GLARGINE 100 UNITS/ML VIAL SQ SCH (08:38)
[2021-01-01 08:39] VITALS: BP 141/72
[2021-01-01 08:47] VITALS: BP 141/72
[2021-01-01] MEDS ORDERED: LOSARTAN POTASSIUM 25 MG TAB PO SCH (09:00)
[2021-01-01] MEDS: LORAZEPAM 0.5 MG TAB PO PRN (09:52)
[2021-01-01] MEDS ORDERED: POTASSIUM CHLORIDE 20 MEQ TAB CR PO ONE (10:15)
[2021-01-01 11:31] VITALS: BP 134/69
[2021-01-01 15:53] VITALS: BP 145/75
== END 2021-01-01 17:00 | disposition home or self-care (01) | DRG 312 ==
LOC: ER 13:29 → ERHOLD 15:58 → IMCU 16:45 → OBSVTOIN 12-31 14:45
DX: I95.1 Orthostatic hypotension (principal); D68.0 Von Willebrand disease; J44.1 Chronic obstructive pulmonary disease with (acute) exacerbation; I27.81 Cor pulmonale (chronic); E11.9 Type 2 diabetes mellitus without complications; I10 Essential (primary) hypertension; E78.00 Pure hypercholesterolemia, unspecified; I25.2 Old myocardial infarction; S80.812A Abrasion, left lower leg, initial encounter; M25.522 Pain in left elbow; R07.81 Pleurodynia; W01.0XXA Fall on same level from slipping, tripping and stumbling without subsequent striking against object, initial encounter; Z91.81 History of falling; Y92.019 Unspecified place in single-family (private) house as the place of occurrence of the external cause; Z99.81 Dependence on supplemental oxygen; E66.9 Obesity, unspecified; Z68.35 Body mass index [BMI] 35.0-35.9, adult; Z82.5 Family history of asthma and other chronic lower respiratory diseases; Z82.49 Family history of ischemic heart disease and other diseases of the circulatory system; Z79.4 Long term (current) use of insulin; Z20.822 Contact with and (suspected) exposure to COVID-19
CPT/HCPCS: 36415; 36600; 70450; 71046; 80048; 80053; 80061; 80198; 81001; 82805; 82948; 83540; 83880; 84443; 84466; 84484; 85025; 93005; 99284; G0378; J1815; J2270; J3010; U0002

== ENCOUNTER 2021-08-06 12:43 | Inpatient (IN) | payer MEDICARE, OTHER ==
[~2021-08-06] VITALS: Ht 154.9 cm; Wt 83.9 kg
[~2021-08-06 12:43] MED LIST changes: +ATIVAN0.5 MG PO; +BENADRYL25 M1 PO; +CELEBREX100 MG PO; +CYMBALTA60 MG PO; +OXYCODONE-ACET1 EAC3 PO; +VALTREX1000 MG PO
[2021-08-06] MEDS ORDERED: ONDANSETRON HCL INJ 2MG/ML 2ML 2 MG/ML VIAL IV NR (13:30)
[2021-08-06] MEDS ORDERED: Morphine 2mg Syringe 2 MG/ML SYR IV ONE (13:35)
[2021-08-06 14:06] LABS: BASOPHILS # (AUTO) 0.1 (0.0-0.1); BASOPHILS % 0.5 % (0.0-1.0); EOSINOPHILS # (AUTO) 0.2 (0.0-0.4); EOSINOPHILS % 1.5 % (0.0-6.0); HEMOGLOBIN 12.3 g/dL (12.0-16.0); LYMPHOCYTES % 24.3 % (18.0-39.1); MEAN CORPUSCULAR VOLUME 83.3 fL (81-99); MONOCYTES % 8.3 % (4.4-11.3); NEUTROPHILS # (AUTO) 7.9 (2.1-6.9); NEUTROPHILS % 64.7 % (38.7-80.0); PLATELET COUNT 456 x10e3/uL (140-360); RED BLOOD COUNT 4.92 x10e6/uL (3.6-5.1)
[2021-08-06 14:17] LABS: INR 0.88; PROTHROMBIN TIME 12.6 seconds (11.9-14.5)
[2021-08-06 14:18] LABS: PARTIAL THROMBOPLASTIN TIME 35.7 seconds (23.8-35.5)
[2021-08-06 14:24] LABS: CLARITY,URINE SL CLOUDY (CLEAR); COLOR,URINE YELLOW (YELLOW); LEUKOCYTE ESTERASE ,URINE SMALL (NEGATIVE)
[2021-08-06 14:25] LABS: KETONES,URINE NEGATIVE (NEGATIVE); NITRITE,URINE NEGATIVE (NEGATIVE); PROTEIN,URINE DIPSTICK NEGATIVE (NEGATIVE); URINE UROBILINOGEN 0.2 mg/dL (0.2 - 1)
[2021-08-06 14:26] LABS: ALBUMIN 4.3 g/dL (3.5-5.0); ALBUMIN/GLOBULIN RATIO 1.1 (0.8-2.0); CALCIUM 9.1 mg/dL (8.4-10.2); CREATININE, SERUM 1.77 mg/dL (0.57-1.11); MAGNESIUM 1.8 MG/DL (1.3-2.1)
[2021-08-06 14:33] LABS: BACTERIA,URINE MODERATE /HPF; CREATINE KINASE MB 1.8 ng/mL (0-5.0); EPITHELIAL CELLS,URINE MODERATE /LPF; RBC,URINE 0-5 /HPF (0-5)
[2021-08-06] MEDS ORDERED: POTASSIUM CHLORIDE 20 MEQ TAB CR PO STA (15:21)
[2021-08-06] MEDS ORDERED: CEFTRIAXONE 1 GM in SODIUM CHLORIDE 0.9% 50ML 50 ML IV ONE (15:30)
[2021-08-06] MEDS: IPRATROPIUM BROMIDE 0.02% 2.5 ML NEB NEB SCH ×3 (15:45→22:15)
[2021-08-06] MEDS: LEVALBUTEROL HCL SOLN NEBU 0.63 MG/3 ML NEB INH PRN ×2 (15:45→22:15)
[2021-08-06] MEDS: FAMOTIDINE 20 MG/2 ML VIAL IV SCH (15:54)
[2021-08-06] MEDS: PIPERACILLIN/TAZOBACTAM 2.25 GM in SODIUM CHLORIDE 0.9% 50ML 50 ML IV SCH ×2 (16:01→22:00)
[2021-08-06 16:55] VITALS: BP 105/48
[2021-08-06] MEDS: SODIUM CHLORIDE 0.9% 1000ML 1,000 ML IV SCH (18:08)
[2021-08-06 18:28] VITALS: BP 105/48
[2021-08-06 19:06] LABS: CREATINE KINASE MB 1.7 ng/mL (0-5.0)
[2021-08-06 19:57] VITALS: BP 101/46
[2021-08-06 20:08] VITALS: BP 101/46
[2021-08-06] MEDS: Morphine 2mg Syringe 2 MG/ML SYR IV PRN (22:15)
[2021-08-06] MEDS: ONDANSETRON HCL INJ 2MG/ML 2ML 2 MG/ML VIAL IV PRN (22:15)
[2021-08-06] MEDS ORDERED: DEXTROSE 50% SYRINGE 50 ML IV PRN (23:45)
[2021-08-06] MEDS ORDERED: ALBUTEROL/IPRATROPIUM 3 ML NEB NEB PRN (23:45)
[2021-08-07] VITALS: BP 135/72
[2021-08-07] MEDS ORDERED: MORPHINE SULFAT30 M2 PO (01:32)
[2021-08-07] MEDS ORDERED: TRAZODONE HCL100 MG PO (01:32)
[2021-08-07] MEDS: FAMOTIDINE 20 MG/2 ML VIAL IV SCH ×2 (02:45→15:14)
[2021-08-07] MEDS: IPRATROPIUM BROMIDE 0.02% 2.5 ML NEB NEB SCH ×6 (02:50→22:21)
[2021-08-07 04:00] VITALS: BP 132/59
[2021-08-07] MEDS: PIPERACILLIN/TAZOBACTAM 2.25 GM in SODIUM CHLORIDE 0.9% 50ML 50 ML IV SCH ×4 (04:00→21:30)
[2021-08-07] MEDS: SODIUM CHLORIDE 0.9% 1000ML 1,000 ML IV SCH ×2 (05:20→21:30)
[2021-08-07 06:01] LABS: BASOPHILS # (AUTO) 0.1 (0.0-0.1); BASOPHILS % 0.4 % (0.0-1.0); EOSINOPHILS # (AUTO) 0.2 (0.0-0.4); EOSINOPHILS % 1.4 % (0.0-6.0); HEMATOCRIT 35.2 % (34.2-44.1); HEMOGLOBIN 11.1 g/dL (12.0-16.0); LYMPHOCYTES # (AUTO) 2.7 (1.0-3.2); LYMPHOCYTES % 22.8 % (18.0-39.1); MEAN CORPUSCULAR HEMOGLOBIN 25.3 pg (28-32); MEAN CORPUSCULAR HGB CONC 31.5 g/dL (31-35); MEAN CORPUSCULAR VOLUME 80.2 fL (81-99); MONOCYTES % 8.1 % (4.4-11.3); NEUTROPHILS % 66.8 % (38.7-80.0); PLATELET COUNT 359 x10e3/uL (140-360); RED BLOOD COUNT 4.39 x10e6/uL (3.6-5.1); RED CELL DISTRIBUTION WIDTH 14.1 % (11.7-14.4)
[2021-08-07] MEDS: Morphine 2mg Syringe 2 MG/ML SYR IV PRN ×4 (06:02→19:03)
[2021-08-07] MEDS: ONDANSETRON HCL INJ 2MG/ML 2ML 2 MG/ML VIAL IV PRN (06:03)
[2021-08-07 06:24] LABS: ALBUMIN 3.6 g/dL (3.5-5.0); ALBUMIN/GLOBULIN RATIO 1.1 (0.8-2.0); CALCIUM 8.4 mg/dL (8.4-10.2); CHOL/HDL RATIO 3.3 (3.0-3.6); CREATININE, SERUM 1.76 mg/dL (0.57-1.11)
[2021-08-07 06:51] LABS: CREATINE KINASE MB 0.9 ng/mL (0-5.0)
[2021-08-07 07:51] VITALS: BP 141/67
[2021-08-07] MEDS ORDERED: POTASSIUM CHLORIDE 20 MEQ TAB CR PO NR ×2 (10:10→17:15)
[2021-08-07] MEDS: INSULIN LISPRO 100 UNIT/1 ML 3ML VIAL SQ SCH ×4 (10:33→21:30)
[2021-08-07] MEDS: FLUTICASONE PROPIONATE NASAL SPRAY NS SCH ×2 (11:09→17:01)
[2021-08-07] MEDS ORDERED: POTASSIUM CHLORIDE 20MEQ/100ML 200 ML IV ONE (11:15)
[2021-08-07 15:20] LABS: CREATINE KINASE MB 0.7 ng/mL (0-5.0)
[2021-08-07 15:47] VITALS: BP 159/68
[2021-08-07] MEDS: GUAIFENESIN 600MG/DEXTROMETHORPHAN 30MG TABSR PO SCH (15:59)
[2021-08-07 19:59] VITALS: BP 116/51
[2021-08-07] MEDS ORDERED: LORAZEPAM 0.5 MG TAB PO PRN (21:00)
[2021-08-07] MEDS ORDERED: TRAZODONE HCL 50 MG TAB PO SCH (21:00)
[2021-08-07] MEDS ORDERED: PRAMIPEXOLE DIHYDROCHLORIDE 0.25 MG TAB PO SCH (21:00)
[2021-08-07] MEDS ORDERED: PIPERACILLIN/TAZOBACTAM SOD 2.25 GM VIAL ONE (21:21)
[2021-08-07] MEDS ORDERED: SODIUM CHLORIDE 0.9% 50ML 50 ML ONE (21:38)
[2021-08-08 00:05] VITALS: BP 116/51
[2021-08-08] MEDS: IPRATROPIUM BROMIDE 0.02% 2.5 ML NEB NEB SCH (00:11)
[2021-08-08 00:12] VITALS: BP 136/59
[2021-08-08] MEDS: FAMOTIDINE 20 MG/2 ML VIAL IV SCH (02:16)
[2021-08-08] MEDS: PIPERACILLIN/TAZOBACTAM 2.25 GM in SODIUM CHLORIDE 0.9% 50ML 50 ML IV SCH ×2 (04:57→10:14)
[2021-08-08 05:08] VITALS: BP 144/74
[2021-08-08] MEDS: INSULIN LISPRO 100 UNIT/1 ML 3ML VIAL SQ SCH ×2 (08:11→11:47)
[2021-08-08] MEDS: SODIUM CHLORIDE 0.9% 1000ML 1,000 ML IV SCH (08:24)
[2021-08-08] MEDS: GUAIFENESIN 600MG/DEXTROMETHORPHAN 30MG TABSR PO SCH (08:38)
[2021-08-08] MEDS: Morphine 2mg Syringe 2 MG/ML SYR IV PRN (08:39)
[2021-08-08] MEDS: FLUTICASONE PROPIONATE NASAL SPRAY NS SCH (08:46)
[2021-08-08] MEDS ORDERED: IPRATROPIUM BROMIDE 0.02% 2.5 ML NEB NEB PRN (09:00)
[2021-08-08] MEDS ORDERED: LORATADINE 10 MG TAB PO SCH (09:00)
[2021-08-08 09:17] LABS: BASOPHILS % 0.4 % (0.0-1.0); EOSINOPHILS # (AUTO) 0.2 (0.0-0.4); EOSINOPHILS % 2.5 % (0.0-6.0); HEMATOCRIT 35.1 % (34.2-44.1); HEMOGLOBIN 10.6 g/dL (12.0-16.0); LYMPHOCYTES # (AUTO) 2.2 (1.0-3.2); LYMPHOCYTES % 23.8 % (18.0-39.1); MEAN CORPUSCULAR HEMOGLOBIN 25.3 pg (28-32); MEAN CORPUSCULAR HGB CONC 30.2 g/dL (31-35); MEAN CORPUSCULAR VOLUME 83.8 fL (81-99); MONOCYTES # (AUTO) 0.7 (0.2-0.8); MONOCYTES % 7.2 % (4.4-11.3); NEUTROPHILS # (AUTO) 6.1 (2.1-6.9); NEUTROPHILS % 65.2 % (38.7-80.0); PLATELET COUNT 365 x10e3/uL (140-360); RED BLOOD COUNT 4.19 x10e6/uL (3.6-5.1); RED CELL DISTRIBUTION WIDTH 14.2 % (11.7-14.4)
[2021-08-08 09:18] VITALS: BP 133/69
[2021-08-08 09:23] VITALS: BP 133/69
[2021-08-08 09:50] LABS: CALCIUM 9.1 mg/dL (8.4-10.2); CREATININE, SERUM 0.93 mg/dL (0.57-1.11)
[2021-08-08] MEDS ORDERED: METRONIDAZOLE500 MG PO (09:55)
[2021-08-08] MEDS ORDERED: CIPRO250 MG PO (09:55)
[2021-08-08] MEDS ORDERED: ALBUTEROL/IPRATROPIUM 3 ML NEB NEB SCH ×2 (10:45→12:00)
[2021-08-08] MEDS ORDERED: AYR SALINE NA14.1 GM (10:57)
[2021-08-08] MEDS ORDERED: SODIUM CHLORIDE/ALOE VERA 14.1GM NASAL GEL SCH (17:00)
[2021-08-08] MEDS ORDERED: SALMETEROL/FLUTICASONE 500/50 INH SCH (19:00)
== END 2021-08-08 12:47 | disposition home or self-care (01) | DRG 445 ==
LOC: ER 13:21 → ERHOLD 14:56 → MED/SURG3 16:28
PROVIDERS: ADMIT Internal Medicine; ATTEND Internal Medicine
DX: K81.9 Cholecystitis, unspecified (principal); J96.11 Chronic respiratory failure with hypoxia; D68.0 Von Willebrand disease; N17.9 Acute kidney failure, unspecified; I51.81 Takotsubo syndrome; J44.9 Chronic obstructive pulmonary disease, unspecified; G47.33 Obstructive sleep apnea (adult) (pediatric); I25.2 Old myocardial infarction; G30.0 Alzheimer's disease with early onset; F02.80 Dementia in other diseases classified elsewhere, unspecified severity, without behavioral disturbance, psychotic disturbance, mood disturbance, and anxiety; Z87.891 Personal history of nicotine dependence; Z88.8 Allergy status to other drugs, medicaments and biological substances; E66.9 Obesity, unspecified; K76.1 Chronic passive congestion of liver; I10 Essential (primary) hypertension; E78.5 Hyperlipidemia, unspecified; E11.9 Type 2 diabetes mellitus without complications; Z99.81 Dependence on supplemental oxygen; Z68.35 Body mass index [BMI] 35.0-35.9, adult; Z79.4 Long term (current) use of insulin
CPT/HCPCS: 36415; 71045; 76705; 78226; 80048; 80053; 80061; 81001; 82150; 82550; 82553; 82948; 83690; 83735; 83880; 84484; 85025; 85610; 85730; 87086; 93005; 94640; 96360; 96372; 99284; A9537; J2270; J2405; J2543; J3480; J7030; U0002

== ENCOUNTER 2023-03-21 16:01 | Inpatient (IN) | payer MEDICARE, OTHER ==
[~2023-03-21] VITALS: Ht 154.9 cm; Wt 80.7 kg
[~2023-03-21 16:01] MED LIST changes: +AYR SALINE NA14.1 GM; +CIPRO250 MG PO; +METFORMIN HCL500 M2 PO; +METRONIDAZOLE500 MG PO; +MORPHINE SULFAT30 M2 PO
[2023-03-21] MEDS ORDERED: SODIUM CHLORIDE 0.9% 1000ML 1,000 ML IV STA (16:07)
[2023-03-21 16:36] LABS: BASOPHILS % 0.3 % (0.0-1.0); EOSINOPHILS # (AUTO) 0.2 (0.0-0.4); EOSINOPHILS % 1.4 % (0.0-6.0); HEMATOCRIT 31.4 % (34.2-44.1); HEMOGLOBIN 9.5 g/dL (12.0-16.0); LYMPHOCYTES # (AUTO) 2.2 (1.0-3.2); LYMPHOCYTES % 14.3 % (18.0-39.1); MEAN CORPUSCULAR HEMOGLOBIN 26.3 pg (28-32); MEAN CORPUSCULAR HGB CONC 30.3 g/dL (31-35); MONOCYTES # (AUTO) 1.1 (0.2-0.8); MONOCYTES % 7.3 % (4.4-11.3); NEUTROPHILS # (AUTO) 11.6 (2.1-6.9); NEUTROPHILS % 76.2 % (38.7-80.0); PLATELET COUNT 330 x10e3/uL (140-360); RED BLOOD COUNT 3.61 x10e6/uL (3.6-5.1); RED CELL DISTRIBUTION WIDTH 14.2 % (11.7-14.4)
[2023-03-21 16:57] LABS: ALBUMIN 3.6 g/dL (3.5-5.0); ALBUMIN/GLOBULIN RATIO 1.1 (0.8-2.0); ANION GAP 13.6 mmol/L (8-16); CALCIUM 8.7 mg/dL (8.4-10.2); CREATININE, SERUM 1.36 mg/dL (0.57-1.11); POTASSIUM 4.6 mmol/L (3.5-5.1)
[2023-03-21] MEDS ORDERED: ONDANSETRON HCL INJ 2MG/ML 2ML 2 MG/ML VIAL IV PRN (19:30)
[2023-03-21] MEDS ORDERED: Morphine 2mg Syringe 2 MG/ML SYR IV PRN (19:30)
[2023-03-21] MEDS ORDERED: SODIUM CHLORIDE FLUSH 10 ML SYR INJ PRN (19:30)
[2023-03-21 19:34] LABS: CLARITY,URINE CLEAR (CLEAR); COLOR,URINE YELLOW (YELLOW); KETONES,URINE NEGATIVE (NEGATIVE); LEUKOCYTE ESTERASE ,URINE NEGATIVE (NEGATIVE); NITRITE,URINE NEGATIVE (NEGATIVE); PROTEIN,URINE DIPSTICK NEGATIVE (NEGATIVE); URINE UROBILINOGEN 0.2 mg/dL (0.2 - 1)
[2023-03-21 19:49] LABS: BACTERIA,URINE FEW /HPF; EPITHELIAL CELLS,URINE MODERATE /LPF; RENAL EPITHELIAL CELLS,URINE FEW
[2023-03-21] MEDS ORDERED: DEXTROSE 50% SYRINGE 50 ML IV PRN (22:00)
[2023-03-21] MEDS: HEPARIN SOD (PORCINE) 5,000 UNIT/ML VIAL SC SCH (22:00)
[2023-03-21] MEDS ORDERED: ALBUTEROL/IPRATROPIUM 3 ML NEB NEB PRN (22:15)
[2023-03-21] MEDS ORDERED: ALBUTEROL SULF 0.083% NEB SOLN 3 ML NEB NEB PRN (22:23)
[2023-03-21] MEDS ORDERED: IPRATROPIUM BROMIDE 0.02% 2.5 ML NEB NEB PRN (22:30)
[2023-03-21 22:46] VITALS: BP 126/47; PULSE 73; RESP 20; TEMP 98; O2SAT 96
[2023-03-21 23:02] VITALS: BP 126/47; PULSE 73; RESP 20; TEMP 98; O2SAT 96
[2023-03-21 23:30] VITALS: PULSE 77; RESP 20; O2SAT 93
[2023-03-22] VITALS (9 sets, daily range): BP systolic 126–173; BP diastolic 47–66; PULSE 73–106; RESP 18–20; TEMP 98–98.9; O2SAT 93–100
[2023-03-22] MEDS: SODIUM CHLORIDE 0.9% 1000ML 1,000 ML IV SCH ×2 (02:21→14:18)
[2023-03-22 05:48] LABS: BASOPHILS % 0.2 % (0.0-1.0); EOSINOPHILS # (AUTO) 0.2 (0.0-0.4); EOSINOPHILS % 1.6 % (0.0-6.0); HEMATOCRIT 32.3 % (34.2-44.1); HEMOGLOBIN 9.7 g/dL (12.0-16.0); LYMPHOCYTES # (AUTO) 2.4 (1.0-3.2); LYMPHOCYTES % 20.3 % (18.0-39.1); MEAN CORPUSCULAR VOLUME 86.6 fL (81-99); MONOCYTES # (AUTO) 0.7 (0.2-0.8); MONOCYTES % 5.9 % (4.4-11.3); NEUTROPHILS # (AUTO) 8.6 (2.1-6.9); NEUTROPHILS % 71.4 % (38.7-80.0); PLATELET COUNT 300 x10e3/uL (140-360); RED BLOOD COUNT 3.73 x10e6/uL (3.6-5.1); RED CELL DISTRIBUTION WIDTH 14.1 % (11.7-14.4)
[2023-03-22 06:13] LABS: ALBUMIN 3.5 g/dL (3.5-5.0); ANION GAP 10.9 mmol/L (8-16); CALCIUM 9.1 mg/dL (8.4-10.2); CREATININE, SERUM 0.85 mg/dL (0.57-1.11); POTASSIUM 3.9 mmol/L (3.5-5.1)
[2023-03-22] MEDS: HEPARIN SOD (PORCINE) 5,000 UNIT/ML VIAL SC SCH ×2 (06:16→14:18)
[2023-03-22] MEDS ORDERED: FAMOTIDINE 20 MG TAB PO ONE (07:30)
[2023-03-22] MEDS: ESCITALOPRAM OXALATE 10 MG TAB PO SCH (09:22)
[2023-03-22] MEDS: POLYETHYLENE GLYCOL 3350 17 GM PACK PO SCH (09:22)
[2023-03-22] MEDS: FAMOTIDINE 20 MG TAB PO SCH ×2 (09:23→17:45)
[2023-03-22] MEDS: MEMANTINE 10 MG TAB PO SCH ×2 (09:23→17:44)
[2023-03-22] MEDS: METOPROLOL TARTRATE 25 MG TAB PO SCH (09:23)
[2023-03-22] MEDS: INSULIN LISPRO 100 UNIT/1 ML 3ML VIAL SQ SCH ×4 (09:28→21:02)
[2023-03-22] MEDS ORDERED: PREDNISONE 20 MG TAB PO ONE (10:30)
[2023-03-22] MEDS: ALBUTEROL/IPRATROPIUM 3 ML NEB INH SCH ×4 (10:45→22:00)
[2023-03-22 10:55] LABS: ABG PCO2 68 mmHg (35-45); ABG PH 7.39 (7.35-7.45); ABG PO2 154 mmHg (80-105)
[2023-03-22 10:56] LABS: ABG HCO3 41 mmol/L (22-26); ABG TCO2 43
[2023-03-22] MEDS ORDERED: IPRATROPIUM BROMIDE 0.02% 2.5 ML NEB NEB SCH (11:00)
[2023-03-22] MEDS ORDERED: ALBUTEROL SULF 0.083% NEB SOLN 3 ML NEB NEB SCH (11:00)
[2023-03-22] MEDS: HYDROCODONE/APAP 10MG-325MG TAB PO PRN ×2 (14:36→21:11)
[2023-03-22] MEDS: NYSTATIN 15 GM POWDER UD BTL TOP SCH (15:52)
[2023-03-22] MEDS: THEOPHYLLINE 200 MG TABCR PO SCH (17:45)
[2023-03-22] MEDS: BUDESONIDE/FORMOTEROL 160/4.5MCG INHALER INH SCH (18:26)
[2023-03-22] MEDS: SIMVASTATIN 40 MG TAB PO SCH (21:11)
[2023-03-22] MEDS: MELATONIN 3 MG TAB PO SCH (21:11)
[2023-03-22] MEDS: PRAMIPEXOLE DIHYDROCHLORIDE 0.25 MG TAB PO SCH (21:12)
[2023-03-22] MEDS: LORAZEPAM 0.5 MG TAB PO PRN (21:41)
[2023-03-23] VITALS (12 sets, daily range): BP systolic 129–158; BP diastolic 62–91; PULSE 76–91; RESP 18–20; TEMP 97–99.2; O2SAT 96–100
[2023-03-23] MEDS: SODIUM CHLORIDE 0.9% 1000ML 1,000 ML IV SCH ×2 (01:55→17:19)
[2023-03-23] MEDS: ALBUTEROL/IPRATROPIUM 3 ML NEB INH SCH ×6 (03:00→23:20)
[2023-03-23] MEDS: HYDROCODONE/APAP 10MG-325MG TAB PO PRN ×4 (04:32→22:08)
[2023-03-23 05:58] LABS: BASOPHILS % 0.3 % (0.0-1.0); EOSINOPHILS % 0.4 % (0.0-6.0); HEMATOCRIT 30.4 % (34.2-44.1); HEMOGLOBIN 8.9 g/dL (12.0-16.0); LYMPHOCYTES # (AUTO) 2.2 (1.0-3.2); LYMPHOCYTES % 21.1 % (18.0-39.1); MEAN CORPUSCULAR HEMOGLOBIN 25.5 pg (28-32); MEAN CORPUSCULAR HGB CONC 29.3 g/dL (31-35); MEAN CORPUSCULAR VOLUME 87.1 fL (81-99); MONOCYTES # (AUTO) 0.6 (0.2-0.8); MONOCYTES % 5.9 % (4.4-11.3); NEUTROPHILS # (AUTO) 7.3 (2.1-6.9); NEUTROPHILS % 70.9 % (38.7-80.0); PLATELET COUNT 285 x10e3/uL (140-360); RED BLOOD COUNT 3.49 x10e6/uL (3.6-5.1); RED CELL DISTRIBUTION WIDTH 13.9 % (11.7-14.4)
[2023-03-23 06:36] LABS: ANION GAP 11.4 mmol/L (8-16); CALCIUM 8.6 mg/dL (8.4-10.2); CREATININE, SERUM 0.78 mg/dL (0.57-1.11); POTASSIUM 3.4 mmol/L (3.5-5.1)
[2023-03-23] MEDS: TIOTROPIUM 18 MCG INH POWDER INH SCH (07:11)
[2023-03-23] MEDS: BUDESONIDE/FORMOTEROL 160/4.5MCG INHALER INH SCH ×2 (07:11→19:25)
[2023-03-23] MEDS: INSULIN LISPRO 100 UNIT/1 ML 3ML VIAL SQ SCH ×4 (07:30→22:05)
[2023-03-23] MEDS: ESCITALOPRAM OXALATE 10 MG TAB PO SCH (08:33)
[2023-03-23] MEDS: THEOPHYLLINE 200 MG TABCR PO SCH ×2 (08:33→17:20)
[2023-03-23] MEDS: METOPROLOL TARTRATE 25 MG TAB PO SCH (08:33)
[2023-03-23] MEDS: PREDNISONE 20 MG TAB PO SCH (08:34)
[2023-03-23] MEDS: MEMANTINE 10 MG TAB PO SCH ×2 (08:34→17:20)
[2023-03-23] MEDS: FAMOTIDINE 20 MG TAB PO SCH ×2 (08:34→17:20)
[2023-03-23] MEDS: LOSARTAN POTASSIUM 25 MG TAB PO SCH (08:34)
[2023-03-23] MEDS: POLYETHYLENE GLYCOL 3350 17 GM PACK PO SCH (08:39)
[2023-03-23] MEDS: NYSTATIN 15 GM POWDER UD BTL TOP SCH (08:52)
[2023-03-23] MEDS ORDERED: POTASSIUM CHLORIDE 20 MEQ TAB CR PO ONE (09:00)
[2023-03-23] MEDS: LORAZEPAM 0.5 MG TAB PO PRN ×2 (13:19→22:07)
[2023-03-23] MEDS ORDERED: ENOXAPARIN SOD INJ 40 MG/0.4 ML SYR SC SCH (17:00)
[2023-03-23] MEDS: PRAMIPEXOLE DIHYDROCHLORIDE 0.25 MG TAB PO SCH (21:59)
[2023-03-23] MEDS: MELATONIN 3 MG TAB PO SCH (21:59)
[2023-03-23] MEDS: SIMVASTATIN 40 MG TAB PO SCH (21:59)
[2023-03-24] VITALS: BP 145/69; PULSE 80; RESP 19; TEMP 98.8; O2SAT 99
[2023-03-24] MEDS: ALBUTEROL/IPRATROPIUM 3 ML NEB INH SCH ×3 (03:02→10:50)
[2023-03-24 04:00] VITALS: BP 150/78; PULSE 86; RESP 20; TEMP 98.7; O2SAT 100
[2023-03-24] MEDS: LORAZEPAM 0.5 MG TAB PO PRN (06:07)
[2023-03-24] MEDS: HYDROCODONE/APAP 10MG-325MG TAB PO PRN (06:07)
[2023-03-24 06:12] LABS: BASOPHILS # (AUTO) 0.1 (0.0-0.1); BASOPHILS % 0.5 % (0.0-1.0); EOSINOPHILS % 0.3 % (0.0-6.0); HEMATOCRIT 29.2 % (34.2-44.1); HEMOGLOBIN 8.8 g/dL (12.0-16.0); LYMPHOCYTES % 25.4 % (18.0-39.1); MEAN CORPUSCULAR HEMOGLOBIN 26.3 pg (28-32); MEAN CORPUSCULAR HGB CONC 30.1 g/dL (31-35); MEAN CORPUSCULAR VOLUME 87.4 fL (81-99); MONOCYTES # (AUTO) 0.8 (0.2-0.8); MONOCYTES % 6.9 % (4.4-11.3); NEUTROPHILS # (AUTO) 7.6 (2.1-6.9); NEUTROPHILS % 64.6 % (38.7-80.0); PLATELET COUNT 296 x10e3/uL (140-360); RED BLOOD COUNT 3.34 x10e6/uL (3.6-5.1); RED CELL DISTRIBUTION WIDTH 14.5 % (11.7-14.4)
[2023-03-24 06:30] VITALS: PULSE 80; RESP 18; O2SAT 96
[2023-03-24] MEDS: TIOTROPIUM 18 MCG INH POWDER INH SCH (06:30)
[2023-03-24] MEDS: BUDESONIDE/FORMOTEROL 160/4.5MCG INHALER INH SCH (06:30)
[2023-03-24 06:57] LABS: ALBUMIN 3.3 g/dL (3.5-5.0); ALBUMIN/GLOBULIN RATIO 1.1 (0.8-2.0); ANION GAP 10.7 mmol/L (8-16); CALCIUM 8.6 mg/dL (8.4-10.2); CREATININE, SERUM 0.79 mg/dL (0.57-1.11); POTASSIUM 3.7 mmol/L (3.5-5.1)
[2023-03-24] MEDS: INSULIN LISPRO 100 UNIT/1 ML 3ML VIAL SQ SCH (07:30)
[2023-03-24 08:39] VITALS: BP 149/75; PULSE 77; RESP 20; TEMP 98; O2SAT 100
[2023-03-24] MEDS: ESCITALOPRAM OXALATE 10 MG TAB PO SCH (08:44)
[2023-03-24] MEDS: MEMANTINE 10 MG TAB PO SCH (08:45)
[2023-03-24] MEDS: LOSARTAN POTASSIUM 25 MG TAB PO SCH (08:45)
[2023-03-24] MEDS: PREDNISONE 20 MG TAB PO SCH (08:45)
[2023-03-24] MEDS: THEOPHYLLINE 200 MG TABCR PO SCH (08:45)
[2023-03-24] MEDS: FAMOTIDINE 20 MG TAB PO SCH (08:45)
[2023-03-24] MEDS: METOPROLOL TARTRATE 25 MG TAB PO SCH (08:45)
[2023-03-24] MEDS: NYSTATIN 15 GM POWDER UD BTL TOP SCH (08:47)
[2023-03-24] MEDS: POLYETHYLENE GLYCOL 3350 17 GM PACK PO SCH (08:47)
[2023-03-24 10:57] VITALS: PULSE 75; RESP 18; O2SAT 98
[2023-03-24 11:01] VITALS: PULSE 85; RESP 22; O2SAT 97
== END 2023-03-24 11:40 | DRG 682 ==
LOC: ER 16:08 → ERHOLD 19:25 → MED/SURG3 22:08 → OBSVTOIN 03-22 16:41
PROVIDERS: ADMIT Internal Medicine; ATTEND Internal Medicine
DX: N17.9 Acute kidney failure, unspecified (principal); J96.21 Acute and chronic respiratory failure with hypoxia; J96.22 Acute and chronic respiratory failure with hypercapnia; D68.00 Von Willebrand disease, unspecified; Z20.822 Contact with and (suspected) exposure to COVID-19; Z99.81 Dependence on supplemental oxygen; I11.9 Hypertensive heart disease without heart failure; F32.9 Major depressive disorder, single episode, unspecified; G89.4 Chronic pain syndrome; R62.7 Adult failure to thrive; E11.9 Type 2 diabetes mellitus without complications; Z79.4 Long term (current) use of insulin; G25.81 Restless legs syndrome; E66.09 Other obesity due to excess calories; Z68.33 Body mass index [BMI] 33.0-33.9, adult; I25.10 Atherosclerotic heart disease of native coronary artery without angina pectoris; E55.9 Vitamin D deficiency, unspecified; K21.9 Gastro-esophageal reflux disease without esophagitis; E78.5 Hyperlipidemia, unspecified; F02.B0 Dementia in other diseases classified elsewhere, moderate, without behavioral disturbance, psychotic disturbance, mood disturbance, and anxiety; D64.9 Anemia, unspecified; I25.2 Old myocardial infarction; J43.9 Emphysema, unspecified; G30.0 Alzheimer's disease with early onset; F41.9 Anxiety disorder, unspecified; Z86.73 Personal history of transient ischemic attack (TIA), and cerebral infarction without residual deficits; Z79.84 Long term (current) use of oral hypoglycemic drugs; Z87.891 Personal history of nicotine dependence
CPT/HCPCS: 0223U; 36415; 36600; 70450; 71045; 71250; 78580; 80048; 80053; 81001; 82550; 82805; 82948; 83880; 84484; 85025; 85730; 93005; 93306; 94640; 94660; 94664; 94799; 96372; 99284; A9540; G0378; J1644; J1650; J7030; J7512